=== PATIENT | female | born 1965 | race Caucasian/White ===

== ENCOUNTER 2017-02-19 13:59 | Emergency (ER) | payer BC, OTHER ==
[~2017-02-19] VITALS: Ht 172.7 cm; Wt 100.0 kg
[2017-02-19] MEDS ORDERED: PRED10PA2 PO (14:06)
[2017-02-19] MEDS ORDERED: LEVO150T7 (14:06)
[2017-02-19] MEDS ORDERED: TRINTAB3 (14:06)
[2017-02-19] MEDS ORDERED: VALT1TAB PO (14:06)
[2017-02-19] MEDS ORDERED: ZANA4TAB PO (16:16)
[2017-02-19 16:25] VITALS: BP 154/99
== END 2017-02-19 16:29 | disposition home or self-care (01) ==
LOC: M ED 13:59
DX: M54.32 Sciatica, left side (principal); E11.9 Type 2 diabetes mellitus without complications; E03.9 Hypothyroidism, unspecified; E78.5 Hyperlipidemia, unspecified; Z87.891 Personal history of nicotine dependence; Z79.899 Other long term (current) drug therapy

== ENCOUNTER 2017-02-26 11:48 | Emergency (ER) | payer BC ==
[~2017-02-26] VITALS: Ht 172.7 cm; Wt 100.0 kg
[~2017-02-26 11:48] MED LIST: LEVO150T7; PRED10PA2 PO; TRINTAB3; VALT1TAB PO; ZANA4TAB PO
[2017-02-26] MEDS ORDERED: NAPR500T PO (13:53)
[2017-02-26 13:57] VITALS: BP 142/92
== END 2017-02-26 13:59 | disposition home or self-care (01) ==
LOC: M ED 11:48
DX: M54.32 Sciatica, left side (principal); E66.9 Obesity, unspecified; Z87.891 Personal history of nicotine dependence; Z79.899 Other long term (current) drug therapy

== ENCOUNTER 2017-03-30 17:17 | Emergency (ER) | payer BC ==
[2017-03-30 20:00] LABS: BASO % 0.4 % (0.0-1.0); EOS # 0.1 10^3/uL (0.0-0.50); EOS % 1.2 % (0.0-3.0); HEMATOCRIT 36.1 % (36.0-47.0); HEMOGLOBIN 10.7 g/dl (12.0-16.0); IMMATURE GRANULOCYTE % 0.5 % (0-0); LYMPH # 2.3 10^3/uL (1.5-4.5); LYMPH % 30.6 % (24.0-44.0); MEAN CORPUSCULAR HEMOGLOBIN 21.5 pg (27.0-33.0); MEAN CORPUSCULAR HGB CONC 29.6 g/dl (32.0-36.5); MEAN CORPUSCULAR VOLUME 72.5 fl (80.0-96.0); MONO # 0.7 10^3/uL (0.0-0.8); MONO % 9.5 % (0.0-5.0); NEUTROPHILS # 4.4 10^3/uL (1.8-7.7); NEUTROPHILS % 57.8 % (36.0-66.0); PLATELET COUNT, AUTOMATED 376 10^3/uL (150-450); RED BLOOD COUNT 4.98 10^6/uL (4.00-5.40); RED CELL DISTRIBUTION WIDTH 17.5 % (11.5-14.5); WHITE BLOOD COUNT 7.6 10^3/uL (4.0-10.0)
[2017-03-30 20:22] LABS: CONTROL LINE HCG INT CTR LINE PRESENT; HCG, SERUM QUALITATIVE NEGATIVE (NEGATIVE)
[2017-03-30 20:24] LABS: ALBUMIN 3.3 GM/DL (3.2-5.2); ALBUMIN/GLOBULIN RATIO 0.83 (1.00-1.93); ALKALINE PHOSPHATASE 107 U/L (45-117); ALT/SGPT 27 U/L (12-78); ANION GAP 6 MEQ/L (8-16); AST/SGOT 20 U/L (7-37); BILIRUBIN,DIRECT < 0.1 MG/DL (0.0-0.2); BILIRUBIN,TOTAL 0.1 MG/DL (0.2-1.0); BLOOD UREA NITROGEN 9 MG/DL (7-18); CALCIUM LEVEL 8.6 MG/DL (8.5-10.1); CARBON DIOXIDE LEVEL 28 MEQ/L (21-32); CHLORIDE LEVEL 103 MEQ/L (98-107); CREATININE FOR GFR 0.73 MG/DL (0.55-1.02); GLOMERULAR FILTRATION RATE > 60.0 (>51); GLUCOSE, FASTING 243 MG/DL (70-105); LIPASE 142 U/L (73-393); POTASSIUM SERUM 3.7 MEQ/L (3.5-5.1); SODIUM LEVEL 137 MEQ/L (136-145); TOTAL PROTEIN 7.3 GM/DL (6.4-8.2)
[2017-03-30] MEDS ORDERED: ISOVUE-370 76% 100ML VIAL (Q9967) As Ordered (20:37)
[2017-03-30 20:45] LABS: KETONE, URINE AUTO RFX TRACE mg/dL (NEGATIVE); LEUKOCYTE ESTERASE UR AUTO RFX NEGATIVE (NEGATIVE); MUCUS, URINE RFX SMALL (NEGATIVE); NITRITE, URINE AUTO RFX NEGATIVE (NEGATIVE); RBC, URINE AUTO RFX 2 /HPF (0-3); SPECIFIC GRAVITY UR AUTO RFX 1.033 (1.002-1.035); SQUAM EPITHELIAL CELL UR AURFX 0 /HPF (0-6); WBC, URINE AUTO RFX 1 /HPF (0-3)
== END 2017-03-30 22:26 | disposition home or self-care (01) ==
LOC: M ED 17:17
DX: R10.31 Right lower quadrant pain (principal); R81 Glycosuria; K76.0 Fatty (change of) liver, not elsewhere classified; E11.9 Type 2 diabetes mellitus without complications; I10 Essential (primary) hypertension; E78.5 Hyperlipidemia, unspecified; D64.9 Anemia, unspecified; Z87.19 Personal history of other diseases of the digestive system; Z79.899 Other long term (current) drug therapy; Z79.890 Hormone replacement therapy; Z79.84 Long term (current) use of oral hypoglycemic drugs; Z87.891 Personal history of nicotine dependence
CPT/HCPCS: Q9967

== ENCOUNTER 2017-05-27 13:08 | Emergency (ER) | payer BC | END 2017-05-27 14:55 | disposition home or self-care (01) | LOC: M ED 13:08 | DX: M72.2 Plantar fascial fibromatosis (principal); M77.32 Calcaneal spur, left foot; E11.9 Type 2 diabetes mellitus without complications; E07.9 Disorder of thyroid, unspecified; Z87.891 Personal history of nicotine dependence; Z79.899 Other long term (current) drug therapy; Z79.84 Long term (current) use of oral hypoglycemic drugs; Z79.1 Long term (current) use of non-steroidal anti-inflammatories (NSAID) | CPT/HCPCS: 73630 ==

== ENCOUNTER 2017-08-21 07:58 | Emergency (ER) | payer BC ==
[2017-08-21] MEDS: IPRATROPIUM 0.5MG/ALBUTEROL 2.5MG INH SOL UD 3ML (DUONEB)(J7620) NEB ×2 (08:41→08:52)
[2017-08-21] MEDS: BENZONATATE 100 MG CAP PO (08:41)
== END 2017-08-21 09:23 | disposition home or self-care (01) ==
LOC: M ED 07:58
DX: R05 Cough (principal); R91.8 Other nonspecific abnormal finding of lung field; I10 Essential (primary) hypertension; E11.9 Type 2 diabetes mellitus without complications; E07.9 Disorder of thyroid, unspecified; E78.9 Disorder of lipoprotein metabolism, unspecified; Z87.19 Personal history of other diseases of the digestive system; Z87.442 Personal history of urinary calculi; Z87.891 Personal history of nicotine dependence; Z79.890 Hormone replacement therapy; Z79.2 Long term (current) use of antibiotics
CPT/HCPCS: 71046

== ENCOUNTER 2017-12-16 14:50 | Emergency (ER) | payer BC ==
[2017-12-16 15:43] LABS: BASO % 0.2 % (0.0-1.0); EOS # 0.1 10^3/uL (0.0-0.50); HEMATOCRIT 38.8 % (36.0-47.0); HEMOGLOBIN 11.5 g/dl (12.0-15.5); IMMATURE GRANULOCYTE % 0.4 % (0-3.0); MEAN CORPUSCULAR HEMOGLOBIN 21.3 pg (27.0-33.0); MEAN CORPUSCULAR HGB CONC 29.6 g/dl (32.0-36.5); MEAN CORPUSCULAR VOLUME 71.9 fl (80.0-96.0); MONO # 0.8 10^3/uL (0.0-0.8); MONO % 7.4 % (0.0-5.0); NEUTROPHILS # 7.4 10^3/uL (1.8-7.7); PLATELET COUNT, AUTOMATED 397 10^3/uL (150-450); RED CELL DISTRIBUTION WIDTH 17.1 % (11.5-14.5); WHITE BLOOD COUNT 10.3 10^3/uL (4.0-10.0)
[2017-12-16 15:47] LABS: KETONE, URINE AUTO RFX TRACE mg/dL (NEGATIVE); LEUKOCYTE ESTERASE UR AUTO RFX NEGATIVE (NEGATIVE); MUCUS, URINE RFX SMALL (NEGATIVE); NITRITE, URINE AUTO RFX NEGATIVE (NEGATIVE); RBC, URINE AUTO RFX 3 /HPF (0-3); SPECIFIC GRAVITY UR AUTO RFX 1.037 (1.002-1.035); SQUAM EPITHELIAL CELL UR AURFX 1 /HPF (0-6); WBC, URINE AUTO RFX 1 /HPF (0-3)
[2017-12-16 15:56] LABS: ALBUMIN 3.3 GM/DL (3.2-5.2); ALBUMIN/GLOBULIN RATIO 0.75 (1.00-1.93); ALKALINE PHOSPHATASE 113 U/L (45-117); ALT/SGPT 15 U/L (12-78); ANION GAP 10 MEQ/L (8-16); AST/SGOT 11 U/L (7-37); BILIRUBIN,DIRECT < 0.1 MG/DL (0.0-0.2); BILIRUBIN,TOTAL 0.2 MG/DL (0.2-1.0); BLOOD UREA NITROGEN 9 MG/DL (7-18); CALCIUM LEVEL 8.8 MG/DL (8.5-10.1); CARBON DIOXIDE LEVEL 26 MEQ/L (21-32); CHLORIDE LEVEL 100 MEQ/L (98-107); CREATININE FOR GFR 0.98 MG/DL (0.55-1.30); GLOMERULAR FILTRATION RATE > 60.0 (>51); GLUCOSE, FASTING 318 MG/DL (70-100); LIPASE 185 U/L (73-393); POTASSIUM SERUM 3.8 MEQ/L (3.5-5.1); SODIUM LEVEL 136 MEQ/L (136-145); TOTAL PROTEIN 7.7 GM/DL (6.4-8.2)
[2017-12-16] MEDS ORDERED: ISOVUE-370 76% 100ML VIAL (Q9967) As Ordered (16:08)
== END 2017-12-16 17:14 | disposition home or self-care (01) ==
LOC: M ED 14:50
DX: K57.92 Diverticulitis of intestine, part unspecified, without perforation or abscess without bleeding (principal); E11.9 Type 2 diabetes mellitus without complications; I10 Essential (primary) hypertension; E78.5 Hyperlipidemia, unspecified; E03.9 Hypothyroidism, unspecified
CPT/HCPCS: Q9967

== ENCOUNTER 2018-06-08 12:50 | Emergency (ER) | payer BC, MEDICAID ==
[~2018-06-08] VITALS: Ht 172.7 cm; Wt 99.1 kg
[2018-06-08 12:50] VITALS: BP 170/98
[~2018-06-08 12:50] MED LIST changes: +CIPR-249 PO; +FLAG500T PO; +LEVO175T2 PO; +LISI-542 PO; +LOSA50TA88; +METF-954 PO; +NAPR-837 PO; +TESS100C PO; +TRINTAB; -TRINTAB3; +VENTAER IN
[2018-06-08] MEDS ORDERED: IPRATROPIUM 0.5MG/ALBUTEROL 2.5MG INH SOL UD 3ML (DUONEB)(J7620) NEB ONE (14:00)
[2018-06-08 14:28] LABS: INFLUENZA A AMPLIFICATION NEGATIVE (NEGATIVE); INFLUENZA B AMPLIFICATION NEGATIVE (NEGATIVE)
--- NOTE | 2018-06-08 14:33 | REP ---
Clinical: Cough and shortness of breath. Technique: PA and lateral. Comparison: 08/21/2017. Findings: Mediastinum and cardiac silhouette are stable/normal. Chronic scoliosis again noted. Lung hernandez are relatively clear and without focal consolidation, effusion or pneumothorax. Trace right middle lobe atelectasis cannot be excluded and should be correlated with physical examination and auscultation. Skeletal structures are intact. Impression: Relatively normal stable examination. Very subtle right middle lobe atelectasis cannot be excluded and should be correlated with physical examination and auscultation. Electronically Signed by Óscar Bedoya MD 06/08/2018 02:25 P
[2018-06-08] MEDS ORDERED: MUCI600T37 PO (15:22)
[2018-06-08] MEDS ORDERED: LEVO750T13 PO (15:22)
[2018-06-08] MEDS ORDERED: LevoFLOXacin 750 MG TABLET PO ONE (15:30)
== END 2018-06-08 15:29 | disposition home or self-care (01) ==
LOC: M ED 12:50
DX: J18.1 Lobar pneumonia, unspecified organism (principal); I10 Essential (primary) hypertension; E03.9 Hypothyroidism, unspecified; Z87.891 Personal history of nicotine dependence; Z79.899 Other long term (current) drug therapy

== ENCOUNTER → 2018-06-28 | Outpatient (REF) | payer MEDICAID ==
[~2018-06-28] MED LIST changes: +LEVO750T13 PO; +MUCI600T37 PO
[2018-06-28 12:46] LABS: HEMOGLOBIN A1c 11.8 %
[2018-06-28 12:49] LABS: MAU/CREAT RATIO 121.8 MCG/MG (0.0-30.0)
[2018-06-28 14:14] LABS: ALT/SGPT 37 U/L (12-78); BILIRUBIN,TOTAL 0.3 MG/DL (0.2-1.0); BLOOD UREA NITROGEN 13 MG/DL (7-18); CALCIUM LEVEL 9.2 MG/DL (8.5-10.1); CARBON DIOXIDE LEVEL 29 MEQ/L (21-32); CHLORIDE LEVEL 100 MEQ/L (98-107); CHOLESTEROL LEVEL 295 MG/DL (<200); CHOLESTEROL RISK RATIO 5.784 (<5); CREATININE FOR GFR 0.74 MG/DL (0.55-1.30); FOLATE 20.3 NG/ML; GLOMERULAR FILTRATION RATE > 60.0 (>51); GLUCOSE, FASTING 278 MG/DL (70-100); HDL CHOLESTEROL 51 MG/DL (>40); LDL CHOLESTEROL 206 MG/DL (<100); NON-HDL-C 244 MG/DL; POTASSIUM SERUM 4.3 MEQ/L (3.5-5.1); SODIUM LEVEL 138 MEQ/L (136-145); TOTAL 25(OH) VITAMIN D 16.7 NG/ML (30.0-100.0); TOTAL PROTEIN 7.9 GM/DL (6.4-8.2); TRIGLYCERIDES LEVEL 188 MG/DL (<150); VITAMIN B12 LEVEL 252 PG/ML
== END ==
LOC: M SFHCPLAZ 09:28
PROVIDERS: ATTEND Nurse Practitioner Family
DX: E11.65 Type 2 diabetes mellitus with hyperglycemia (principal); E78.2 Mixed hyperlipidemia; E03.9 Hypothyroidism, unspecified; R20.2 Paresthesia of skin

== ENCOUNTER → 2018-08-09 | Outpatient (REF) | payer MEDICAID ==
[2018-08-09 12:43] LABS: MALB URINE SIEMENS 8.1 MG/L; MAU/CREAT RATIO 7.9 MCG/MG (0.0-30.0)
[2018-08-09 12:45] LABS: BLOOD UREA NITROGEN 11 MG/DL (7-18); CALCIUM LEVEL 9.3 MG/DL (8.5-10.1); CARBON DIOXIDE LEVEL 29 MEQ/L (21-32); CHLORIDE LEVEL 104 MEQ/L (98-107); CREATININE FOR GFR 0.62 MG/DL (0.55-1.30); FREE T4 1.55 NG/DL (0.76-1.46); GLOMERULAR FILTRATION RATE > 60.0 (>51); GLUCOSE, FASTING 172 MG/DL (70-100); SODIUM LEVEL 143 MEQ/L (136-145); THYROID STIMULATING HORMONE 0.128 uIU/ML (0.358-3.740)
[2018-08-09 12:49] LABS: HEMOGLOBIN A1c 10.7 %
== END ==
LOC: M SFHCPLAZ 09:57
PROVIDERS: ATTEND Nurse Practitioner Family
DX: E03.9 Hypothyroidism, unspecified (principal); E11.65 Type 2 diabetes mellitus with hyperglycemia

== ENCOUNTER 2018-10-09 13:36 | Emergency (ER) | payer MEDICAID, OTHER ==
[~2018-10-09] VITALS: Ht 172.7 cm; Wt 84.5 kg
[2018-10-09] MEDS ORDERED: VITA500045 PO (14:01)
[2018-10-09] MEDS ORDERED: ATOR1TAB19 PO (14:01)
[2018-10-09] MEDS ORDERED: JANU100T PO (14:01)
[2018-10-09] MEDS ORDERED: METF500T4 PO (14:01)
[2018-10-09 14:28] LABS: BASO % 0.4 % (0.0-1.0); EOS # 0.2 10^3/uL (0.0-0.50); EOS % 2.3 % (0.0-3.0); HEMATOCRIT 40.9 % (36.0-47.0); LYMPH # 1.6 10^3/uL (1.5-4.5); LYMPH % 23.3 % (24.0-44.0); MEAN CORPUSCULAR HEMOGLOBIN 25.8 pg (27.0-33.0); MEAN CORPUSCULAR HGB CONC 31.8 g/dl (32.0-36.5); MEAN CORPUSCULAR VOLUME 81.3 fl (80.0-96.0); MONO # 0.6 10^3/uL (0.0-0.8); MONO % 9.1 % (0.0-5.0); NEUTROPHILS # 4.6 10^3/uL (1.8-7.7); NEUTROPHILS % 64.5 % (36.0-66.0); PLATELET COUNT, AUTOMATED 295 10^3/uL (150-450); RED BLOOD COUNT 5.03 10^6/uL (4.00-5.40); WHITE BLOOD COUNT 7.1 10^3/uL (4.0-10.0)
--- NOTE | 2018-10-09 14:32 | REP ---
Clinical: Acute chest pain . Comparison: 06/08/2018 . Findings: The mediastinum and cardiac silhouette are stable and within normal limits for portable technique. The lung hernandez are clear without acute consolidation, effusion, or pneumothorax. Skeletal structures are intact. Impression: No acute cardiopulmonary process appreciated. Electronically Signed by Óscar Bedoya MD 10/09/2018 02:24 P
[2018-10-09] MEDS ORDERED: GI COCKTAIL 50ML BTL(HYOSCYAMINE/MAALOX/LIDOCAINE VISCOUS)(1:3:1) PO ONE (14:45)
[2018-10-09 14:54] LABS: ALBUMIN 3.2 GM/DL (3.2-5.2); ALT/SGPT 26 U/L (12-78); BILIRUBIN,DIRECT < 0.1 MG/DL (0.0-0.2); BILIRUBIN,TOTAL 0.2 MG/DL (0.2-1.0); BLOOD UREA NITROGEN 10 MG/DL (7-18); CALCIUM LEVEL 9.3 MG/DL (8.5-10.1); CARBON DIOXIDE LEVEL 28 MEQ/L (21-32); CHLORIDE LEVEL 107 MEQ/L (98-107); CK-MB VALUE MASS < 1.0 NG/ML (<3.6); CPK CREATINE PHOSPHOKINASE 29 U/L (26-192); CREATININE FOR GFR 0.64 MG/DL (0.55-1.30); GLOMERULAR FILTRATION RATE > 60.0 (>51); GLUCOSE, FASTING 208 MG/DL (70-100); LIPASE 75 U/L (73-393); MB/CK RELATIVE INDEX 3.45 (< OR =4); POTASSIUM SERUM 3.5 MEQ/L (3.5-5.1); SODIUM LEVEL 141 MEQ/L (136-145); TOTAL PROTEIN 7.1 GM/DL (6.4-8.2); TROPONIN I < 0.02 NG/ML (< 0.10)
[2018-10-09] MEDS ORDERED: OMEP-218 PO (15:42)
[2018-10-09 16:02] VITALS: BP 130/78
--- NOTE | 2018-10-09 20:20 | ECGEPIP ---
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
--- NOTE | 2018-10-11 19:15 | ECGEPIP ---
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
== END 2018-10-09 16:09 | disposition home or self-care (01) ==
LOC: M ED 13:36
DX: K21.9 Gastro-esophageal reflux disease without esophagitis (principal); E11.9 Type 2 diabetes mellitus without complications; Z79.899 Other long term (current) drug therapy; Z79.84 Long term (current) use of oral hypoglycemic drugs; Z87.891 Personal history of nicotine dependence

== ENCOUNTER → 2018-11-09 | Outpatient (REF) | payer OTHER ==
[~2018-11-09] MED LIST changes: +ATOR1TAB19 PO; +JANU100T PO; +METF500T4 PO; +OMEP-218 PO; +VITA500045 PO
[2018-11-09 12:54] LABS: MALB URINE SIEMENS 15.3 MG/L; MAU/CREAT RATIO 7.6 MCG/MG (0.0-30.0)
[2018-11-09 13:46] LABS: HEMOGLOBIN A1c 7.7 %
[2018-11-09 14:16] LABS: ALBUMIN 3.7 GM/DL (3.2-5.2); ALT/SGPT 30 U/L (12-78); BILIRUBIN,TOTAL 0.5 MG/DL (0.2-1.0); BLOOD UREA NITROGEN 11 MG/DL (7-18); CALCIUM LEVEL 9.7 MG/DL (8.5-10.1); CARBON DIOXIDE LEVEL 28 MEQ/L (21-32); CHLORIDE LEVEL 104 MEQ/L (98-107); CHOLESTEROL LEVEL 164 MG/DL (<200); CREATININE FOR GFR 0.69 MG/DL (0.55-1.30); FREE T4 1.85 NG/DL (0.76-1.46); GLOMERULAR FILTRATION RATE > 60.0 (>51); GLUCOSE, FASTING 111 MG/DL (70-100); HDL CHOLESTEROL 50 MG/DL (>40); LDL CHOLESTEROL 99 MG/DL (<100); NON-HDL-C 114 MG/DL; POTASSIUM SERUM 4.1 MEQ/L (3.5-5.1); SODIUM LEVEL 140 MEQ/L (136-145); THYROID STIMULATING HORMONE 0.053 uIU/ML (0.358-3.740); TOTAL 25(OH) VITAMIN D 136.8 NG/ML (30.0-100.0); TOTAL PROTEIN 7.1 GM/DL (6.4-8.2); TRIGLYCERIDES LEVEL 74 MG/DL (<150); VITAMIN B12 LEVEL 1143 PG/ML
[2018-11-09 16:10] LABS: FOLATE 20.8 NG/ML
== END ==
LOC: M SFHCPLAZ 09:44
PROVIDERS: ATTEND Nurse Practitioner Family
DX: E11.65 Type 2 diabetes mellitus with hyperglycemia (principal); E03.9 Hypothyroidism, unspecified; E78.2 Mixed hyperlipidemia; E55.9 Vitamin D deficiency, unspecified; E53.8 Deficiency of other specified B group vitamins

== ENCOUNTER → 2019-02-05 | Outpatient (CLI) | payer OTHER ==
[~2019-02-05] MED LIST changes: +METF-791 PO; -METF500T4 PO
[2019-02-05 13:44] LABS: ALT/SGPT 22 U/L (12-78); BILIRUBIN,TOTAL 0.4 MG/DL (0.2-1.0); BLOOD UREA NITROGEN 11 MG/DL (7-18); CALCIUM LEVEL 9.9 MG/DL (8.5-10.1); CARBON DIOXIDE LEVEL 31 MEQ/L (21-32); CHLORIDE LEVEL 104 MEQ/L (98-107); CREATININE FOR GFR 0.67 MG/DL (0.55-1.30); FOLATE 16.5 NG/ML; FREE T4 1.42 NG/DL (0.76-1.46); GLOMERULAR FILTRATION RATE > 60.0 (>51); GLUCOSE, FASTING 117 MG/DL (70-100); POTASSIUM SERUM 4.7 MEQ/L (3.5-5.1); SODIUM LEVEL 141 MEQ/L (136-145); THYROID STIMULATING HORMONE 0.277 uIU/ML (0.358-3.740); TOTAL 25(OH) VITAMIN D 60.2 NG/ML (30.0-100.0); TOTAL PROTEIN 7.7 GM/DL (6.4-8.2); VITAMIN B12 LEVEL 1168 PG/ML
[2019-02-05 14:16] LABS: HEMOGLOBIN A1c 7.1 %
== END ==
LOC: M PLALAB 11:18
PROVIDERS: ATTEND Nurse Practitioner Family
DX: E11.65 Type 2 diabetes mellitus with hyperglycemia (principal); E03.9 Hypothyroidism, unspecified; E55.9 Vitamin D deficiency, unspecified; E53.8 Deficiency of other specified B group vitamins

== ENCOUNTER → 2019-04-06 | Outpatient (CLI) | payer OTHER ==
--- NOTE | 2019-04-06 12:28 | REP ---
BILATERAL SCREENING DIGITAL MAMMOGRAM WITH 3D TOMOSYNTHESIS: There are no palpable abnormalities or other breast complaints. The the patient states she had a clinical breast examination January,. The Tyrer-Cuzick Score is: 8.6% . Comparison is the 01/15/2013. There are scattered areas of fibroglandular density. There is no dominant mass, micro calcific cluster or architectural distortion that would indicate malignancy. There are no additional findings on 3D tomosynthesiss. There is no change from the prior study. Impression: BIRADS/ACR category 1 mammogram. Negative. Recommendation: Routine annual screening mammography. This mammogram was interpreted with the aid of a FDA approved computer-aided detection system. A. Negative mammogram reports should not delay biopsy if a dominant or clinically suspicious mass is present. B. Not all breast cancers are identified by mammography or tomosynthesis. C. Adenosis and dense breasts may obscure an underlying neoplasm. Patient letter M1. Electronically Signed by Shakeel Wynn MD 04/06/2019 12:20 P
== END ==
LOC: M WHC 10:17
PROVIDERS: ATTEND Nurse Practitioner Family
DX: Z12.31 Encounter for screening mammogram for malignant neoplasm of breast (principal)

== ENCOUNTER → 2019-04-23 | Outpatient (REF) | payer OTHER, MEDICAID ==
[2019-04-23 22:21] LABS: INFLUENZA A AMPLIFICATION NEGATIVE (NEGATIVE); INFLUENZA B AMPLIFICATION NEGATIVE (NEGATIVE)
== END ==
LOC: M LAB REF 21:22
PROVIDERS: ATTEND Physician Assistant Medical
DX: J11.1 Influenza due to unidentified influenza virus with other respiratory manifestations (principal)

== ENCOUNTER → 2019-05-15 | Outpatient (CLI) | payer OTHER ==
[2019-05-15 14:42] LABS: ALBUMIN 3.9 GM/DL (3.2-5.2); ALT/SGPT 22 U/L (12-78); BILIRUBIN,TOTAL 0.4 MG/DL (0.2-1.0); BLOOD UREA NITROGEN 15 MG/DL (7-18); CALCIUM LEVEL 9.3 MG/DL (8.5-10.1); CARBON DIOXIDE LEVEL 30 MEQ/L (21-32); CHLORIDE LEVEL 105 MEQ/L (98-107); CHOLESTEROL LEVEL 194 MG/DL (<200); CHOLESTEROL RISK RATIO 2.895 (<5); CREATININE FOR GFR 0.74 MG/DL (0.55-1.30); FREE T4 0.99 NG/DL (0.76-1.46); GLOMERULAR FILTRATION RATE > 60.0 (>51); GLUCOSE, FASTING 98 MG/DL (70-100); HDL CHOLESTEROL 67 MG/DL (>40); LDL CHOLESTEROL 108 MG/DL (<100); NON-HDL-C 127 MG/DL; POTASSIUM SERUM 4.8 MEQ/L (3.5-5.1); SODIUM LEVEL 139 MEQ/L (136-145); TOTAL PROTEIN 7.2 GM/DL (6.4-8.2); TRIGLYCERIDES LEVEL 96 MG/DL (<150)
[2019-05-15 14:44] LABS: MALB URINE SIEMENS 6.6 MG/L; MAU/CREAT RATIO 5.4 MCG/MG (0.0-30.0); TOTAL 25(OH) VITAMIN D 39.8 NG/ML (30.0-100.0)
[2019-05-15 17:24] LABS: HEMOGLOBIN A1c 6.8 %
== END ==
LOC: M PLALAB 10:51
PROVIDERS: ATTEND Nurse Practitioner Family
DX: E11.65 Type 2 diabetes mellitus with hyperglycemia (principal); E03.9 Hypothyroidism, unspecified; E78.2 Mixed hyperlipidemia; E55.9 Vitamin D deficiency, unspecified

== ENCOUNTER → 2019-09-04 | Outpatient (CLI) | payer OTHER, MEDICAID ==
[~2019-09-04] MED LIST changes: -METF-791 PO; +METF-838 PO
[2019-09-04 10:49] LABS: ALBUMIN 3.4 GM/DL (3.2-5.2); ALT/SGPT 17 U/L (12-78); BILIRUBIN,TOTAL 0.3 MG/DL (0.2-1.0); BLOOD UREA NITROGEN 15 MG/DL (7-18); CALCIUM LEVEL 9.2 MG/DL (8.5-10.1); CARBON DIOXIDE LEVEL 29 MEQ/L (21-32); CHLORIDE LEVEL 108 MEQ/L (98-107); CREATININE FOR GFR 0.74 MG/DL (0.55-1.30); FREE T4 1.12 NG/DL (0.76-1.46); GLOMERULAR FILTRATION RATE > 60.0 (>51); GLUCOSE, FASTING 144 MG/DL (70-100); POTASSIUM SERUM 4.3 MEQ/L (3.5-5.1); SODIUM LEVEL 141 MEQ/L (136-145); THYROID STIMULATING HORMONE 0.121 uIU/ML (0.358-3.740); TOTAL PROTEIN 6.7 GM/DL (6.4-8.2)
[2019-09-04 12:12] LABS: HEMOGLOBIN A1c 6.9 %
== END ==
LOC: M PLALAB 08:23
PROVIDERS: ATTEND Nurse Practitioner Family
DX: E03.9 Hypothyroidism, unspecified (principal)

== ENCOUNTER 2019-12-13 11:11 | Emergency (ER) | payer OTHER ==
[~2019-12-13] VITALS: Ht 172.7 cm; Wt 83.0 kg
[~2019-12-13 11:11] MED LIST changes: -ACYC400T PO; -CALC-212 PO
[2019-12-13] MEDS ORDERED: CALC-212 PO (11:17)
[2019-12-13] MEDS ORDERED: ACYC400T PO (11:17)
--- NOTE | 2019-12-13 12:15 | REPVR ---
PROCEDURE INFORMATION: Exam: XR Left Toe(s) Exam date and time: 12/13/2019 11:19 AM Age: 54 years old Clinical indication: Injury or trauma; Other: Trauma to pinky toe; Sprain or strain; Toes; Left little toe; Additional info: Trauma to left baby toe TECHNIQUE: Imaging protocol: XR Left toes. Views: Minimum 2 views. COMPARISON: CR Foot, complete LEFT 05/27/2017 2:30 PM FINDINGS: Bones/joints: Fifth toe proximal phalanx shaft nondisplaced acute fracture. No dislocation. Soft tissues: Unremarkable as visualized. IMPRESSION: Fifth toe proximal phalanx acute fracture. Electronically signed by: Antonio Rudd On 12/13/2019 12:15:31 PM
[2019-12-13 12:38] VITALS: BP 125/65
== END 2019-12-13 12:39 | disposition home or self-care (01) ==
LOC: M ED 11:11
DX: S92.515A Nondisplaced fracture of proximal phalanx of left lesser toe(s), initial encounter for closed fracture (principal); W22.03XA Walked into furniture, initial encounter; Y92.099 Unspecified place in other non-institutional residence as the place of occurrence of the external cause; Y93.9 Activity, unspecified; Y99.9 Unspecified external cause status; E11.9 Type 2 diabetes mellitus without complications; E78.5 Hyperlipidemia, unspecified; E03.9 Hypothyroidism, unspecified; I10 Essential (primary) hypertension; Z87.891 Personal history of nicotine dependence; Z79.899 Other long term (current) drug therapy

== ENCOUNTER → 2019-12-13 | Outpatient (REF) | payer OTHER ==
[~2019-12-13] MED LIST changes: +ACYC400T PO; +CALC-212 PO
[2019-12-13 12:08] LABS: ALBUMIN 3.7 GM/DL (3.2-5.2); ALT/SGPT 18 U/L (12-78); BILIRUBIN,TOTAL 0.4 MG/DL (0.2-1.0); BLOOD UREA NITROGEN 12 MG/DL (7-18); CALCIUM LEVEL 9.4 MG/DL (8.5-10.1); CARBON DIOXIDE LEVEL 30 MEQ/L (21-32); CHLORIDE LEVEL 105 MEQ/L (98-107); CHOLESTEROL LEVEL 158 MG/DL (<200); CHOLESTEROL RISK RATIO 2.677 (<5); CREATININE FOR GFR 0.68 MG/DL (0.55-1.30); FREE T4 1.16 NG/DL (0.76-1.46); GLOMERULAR FILTRATION RATE > 60.0 (>51); GLUCOSE, FASTING 88 MG/DL (70-100); HDL CHOLESTEROL 59 MG/DL (>40); LDL CHOLESTEROL 85 MG/DL (<100); MALB URINE SIEMENS 9.3 MG/L; MAU/CREAT RATIO 6.2 MCG/MG (0.0-30.0); NON-HDL-C 99 MG/DL; POTASSIUM SERUM 4.6 MEQ/L (3.5-5.1); SODIUM LEVEL 140 MEQ/L (136-145); TOTAL 25(OH) VITAMIN D 40.8 NG/ML (30.0-100.0); TOTAL PROTEIN 6.7 GM/DL (6.4-8.2); TRIGLYCERIDES LEVEL 69 MG/DL (<150)
== END ==
LOC: M PLALAB 09:07
PROVIDERS: ATTEND Nurse Practitioner Family
DX: E11.40 Type 2 diabetes mellitus with diabetic neuropathy, unspecified (principal); E03.9 Hypothyroidism, unspecified; E78.2 Mixed hyperlipidemia; E55.9 Vitamin D deficiency, unspecified

== ENCOUNTER 2020-03-16 13:47 | Emergency (ER) | payer OTHER ==
[~2020-03-16] VITALS: Ht 172.7 cm; Wt 80.7 kg
[~2020-03-16 13:47] MED LIST changes: +ACYC400T PO; +CALC-212 PO
--- NOTE | 2020-03-16 14:57 | REP ---
INDICATION: pain after fall COMPARISON: None. TECHNIQUE: AP, lateral, bilateral oblique views. FINDINGS: There is a new acute oblique fracture of the distal fibular metaphysis with overlying soft tissue swelling and mild widening to the ankle mortise. IMPRESSION: Acute oblique fracture of the distal fibular metaphysis with overlying soft tissue swelling. <Electronically signed by Óscar Bedoya > 03/16/20 [id number]
[2020-03-16] MEDS ORDERED: NORCO, ANEXSIA 5/325MG TABLET (HYDROcodone/ACETAMINOPHEN) PO ONE (15:00)
[2020-03-16 15:56] VITALS: BP 152/97
== END 2020-03-16 16:00 | disposition home or self-care (01) ==
LOC: M ED 13:47
DX: S82.831A Other fracture of upper and lower end of right fibula, initial encounter for closed fracture (principal); W00.9XXA Unspecified fall due to ice and snow, initial encounter; Y92.9 Unspecified place or not applicable; Y93.9 Activity, unspecified; Y99.9 Unspecified external cause status; E11.9 Type 2 diabetes mellitus without complications; Z79.84 Long term (current) use of oral hypoglycemic drugs; Z79.899 Other long term (current) drug therapy

== ENCOUNTER 2020-05-24 14:21 | Emergency (ER) | payer OTHER ==
[~2020-05-24] VITALS: Ht 172.7 cm; Wt 80.5 kg
[~2020-05-24 14:21] MED LIST changes: -LISI-542 PO; +LISI-898 PO
--- NOTE | 2020-05-24 14:50 | REP ---
INDICATION: fall injury COMPARISON: None. TECHNIQUE: AP, lateral, bilateral oblique views right 4th digit. FINDINGS: There is a minimally angulated fracture at the base of the proximal phalanx with associated soft tissue swelling. IMPRESSION: Fracture at the base of the proximal phalanx with soft tissue swelling. <Electronically signed by sÓcar Bedoya > 05/24/20 0790
--- NOTE | 2020-05-24 15:49 | REP ---
INDICATION: fall from standing COMPARISON: None. TECHNIQUE: Axial noncontrast images from the skull base to the vertex with coronal reformations. This CT examination was performed using the following dose reduction techniques: Automated exposure control, adjustment of mA and/or kv according to the patient's size, and use of iterative reconstruction technique. FINDINGS: The ventricles, sulci, and cisterns are normal in position and appearance. Rivera-white differentiation is maintained. No acute intracranial hemorrhage, mass/mass effect, pathology or trauma/injury. No evidence for acute infarction. No extra-axial fluid collection. Calvarium is intact. Paranasal sinuses and mastoid air cells are clear. IMPRESSION: Normal noncontrast head CT. No evidence for acute intracranial pathology or trauma/injury. <Electronically signed by Óscar Bedoya > 05/24/20 [id number]
[2020-05-24 16:04] VITALS: BP 144/88
== END 2020-05-24 16:09 | disposition home or self-care (01) ==
LOC: M ED 14:21
DX: S62.614A Displaced fracture of proximal phalanx of right ring finger, initial encounter for closed fracture (principal); S00.81XA Abrasion of other part of head, initial encounter; W19.XXXA Unspecified fall, initial encounter; Y92.099 Unspecified place in other non-institutional residence as the place of occurrence of the external cause; Y93.9 Activity, unspecified; Y99.9 Unspecified external cause status; E03.9 Hypothyroidism, unspecified; I10 Essential (primary) hypertension; E11.9 Type 2 diabetes mellitus without complications; E78.5 Hyperlipidemia, unspecified; K57.32 Diverticulitis of large intestine without perforation or abscess without bleeding; Z87.442 Personal history of urinary calculi; Z79.84 Long term (current) use of oral hypoglycemic drugs; Z79.899 Other long term (current) drug therapy

== ENCOUNTER → 2020-06-10 | Outpatient (REF) | payer OTHER ==
[2020-06-10 13:37] LABS: HEMOGLOBIN A1c 6.2 %
[2020-06-10 14:10] LABS: ALBUMIN 3.8 GM/DL (3.2-5.2); ALT/SGPT 14 U/L (12-78); BILIRUBIN,TOTAL 0.4 MG/DL (0.2-1.0); BLOOD UREA NITROGEN 13 MG/DL (7-18); CALCIUM LEVEL 9.3 MG/DL (8.5-10.1); CARBON DIOXIDE LEVEL 31 MEQ/L (21-32); CHLORIDE LEVEL 108 MEQ/L (98-107); CREATININE FOR GFR 0.61 MG/DL (0.55-1.30); FREE T4 1.13 NG/DL (0.76-1.46); GLOMERULAR FILTRATION RATE > 60.0 (>51); GLUCOSE, FASTING 101 MG/DL (70-100); POTASSIUM SERUM 4.3 MEQ/L (3.5-5.1); SODIUM LEVEL 143 MEQ/L (136-145); TOTAL PROTEIN 6.7 GM/DL (6.4-8.2)
== END ==
LOC: M PLALAB 08:43
PROVIDERS: ATTEND Nurse Practitioner Family
DX: E11.40 Type 2 diabetes mellitus with diabetic neuropathy, unspecified (principal); E03.9 Hypothyroidism, unspecified

== ENCOUNTER 2020-06-24 09:54 | Emergency (ER) | payer OTHER ==
[~2020-06-24] VITALS: Ht 172.7 cm; Wt 79.9 kg
[~2020-06-24 09:54] MED LIST changes: +ACYC1TAB PO; -ACYC400T PO
[2020-06-24] MEDS ORDERED: NS 1,000 ML IV ONE (10:30)
[2020-06-24 11:07] LABS: BASO % 0.3 % (0.0-1.0); EOS # 0.2 10^3/uL (0.0-0.5); EOS % 2.2 % (0.0-3.0); HEMATOCRIT 44.5 % (36.0-47.0); HEMOGLOBIN 13.9 g/dl (12.0-15.5); LYMPH # 1.1 10^3/uL (1.5-5.0); LYMPH % 9.8 % (24.0-44.0); MEAN CORPUSCULAR HEMOGLOBIN 26.6 pg (27.0-33.0); MEAN CORPUSCULAR HGB CONC 31.2 g/dl (32.0-36.5); MEAN CORPUSCULAR VOLUME 85.2 fl (80.0-96.0); MONO # 0.8 10^3/uL (0.0-0.8); MONO % 7.5 % (2.0-8.0); NEUTROPHILS # 8.7 10^3/uL (1.5-8.5); NEUTROPHILS % 79.8 % (36.0-66.0); PLATELET COUNT, AUTOMATED 279 10^3/uL (150-450); RED BLOOD COUNT 5.22 10^6/uL (4.00-5.40); WHITE BLOOD COUNT 10.8 10^3/uL (4.0-10.0)
[2020-06-24] MEDS ORDERED: ISOVUE-370 76% 100ML VIAL As Ordered ONE (11:13)
[2020-06-24 11:38] LABS: ALBUMIN 3.8 GM/DL (3.2-5.2); BILIRUBIN,DIRECT 0.1 MG/DL (0.0-0.2); BILIRUBIN,TOTAL 0.3 MG/DL (0.2-1.0); TOTAL PROTEIN 7.2 GM/DL (6.4-8.2)
--- NOTE | 2020-06-24 11:43 | REP ---
INDICATION: lower abd pain r/o diverticulitis COMPARISON: 12/16/2017. TECHNIQUE: CT Scan of the abdomen and pelvis was performed with intravenous administration of 100 cc of Isovue 370, without oral contrast. Sagittal and coronal reconstruction images are performed. FINDINGS: Lung bases: Unremarkable. Liver: Normal Gallbladder: Unremarkable. Spleen: Normal. Adrenals: Normal. Pancreas: Normal. Kidneys: Normal. Small and large bowel: There is segmental thickening of the sigmoid colon with multiple diverticula in that region and diffuse pericolonic inflammatory change in the fat. The findings are consistent with diverticulitis. There is no free air or bowel obstruction. Free fluid: None. Abdominal aorta: No aneurysm or dissection. Adenopathy: None. Appendix: Not inflamed. Osseous structures: There are degenerative changes of the spine without compression deformity. Pelvis: No mass. IMPRESSION: Sigmoid diverticulitis. No free air, free fluid or abscess. Recommend follow-up CT or direct visualization to ensure resolution and that there is no underlying neoplasm. <Electronically signed by Shakeel Rivera > 06/24/20 0063
[2020-06-24] MEDS ORDERED: CIPROFLOXACIN 500MG TABLET PO ONE (12:00)
[2020-06-24] MEDS ORDERED: metroNIDAZOLE (FLAGYL) 500MG TABLET PO ONE (12:00)
[2020-06-24] MEDS ORDERED: CIPR-249 PO (12:02)
[2020-06-24] MEDS ORDERED: FLAG500T PO (12:02)
[2020-06-24 12:27] VITALS: BP 111/73
== END 2020-06-24 12:45 | disposition home or self-care (01) ==
LOC: M ED 09:54
DX: K57.32 Diverticulitis of large intestine without perforation or abscess without bleeding (principal); E78.00 Pure hypercholesterolemia, unspecified; I10 Essential (primary) hypertension; Z87.442 Personal history of urinary calculi; E11.9 Type 2 diabetes mellitus without complications; E03.9 Hypothyroidism, unspecified; Z79.84 Long term (current) use of oral hypoglycemic drugs; Z79.899 Other long term (current) drug therapy
CPT/HCPCS: 74177; 80047; 80076; 83690; 85025; 96360; 96361; 99284; Q9967

== ENCOUNTER → 2020-07-08 | Outpatient (CLI) | payer OTHER ==
--- NOTE | 2020-07-08 13:53 | REPMRS ---
Patient History The patient states she has not had a clinical breast exam in over a year. Patient is postmenopausal. No known family history of cancer. Patient states no breast complaints. Patient has signed the MRS history sheet. Digital Woman Screen Mammo: July 08, 2020 - Exam #: [id number] Bilateral CC and MLO view(s) were taken. Technologist: Paige Dinh, Technologist Prior study comparison: April 06, 2019, bilateral digital woman screen mammo performed at [facility]. January 15, 2013, bilateral digital mammo screening bilat, performed at [facility]. FINDINGS: There are scattered fibroglandular densities. Screening. Digital screening (2D) mammography was performed bilaterally in the CC and MLO projections. Additionally, breast tomosynthesis (3D mammography) was performed bilaterally in the CC and MLO projections. Todays exam was compared to the prior exams(s). By history, the patient has no complaints of a palpable breast abnormality or other significant breast complaints. The breasts are unchanged in size and shape. There are no javier-soft tissue densities or spiculated masses. There is no internal architectural distortion. There are no suspicious javier-calcific clusters. Skin thickening or nipple retraction is not present. IMPRESSION: BI-RADS Category 2- Benign Findings(s). There is no evidence of malignant alteration of the breasts. Followup examination recommended in one year. The Volpara volumetric breast density category is B, there are scattered areas of fibroglandular density. This mammogram was read with the assistance of [facility],an FDA approved computer aided detection system for mammography. The lifetime Tyrer-Cuzick score is 8.7 % Negative x-ray reports should not delay surgical consultation if a dominant or clinically suspicious mass is present. Not all breast cancers can be identified by mammography. Therefore, we recommend that you continue to perform regular breast self-examination and physical examination and then promptly contact your physician of any concerns or changes. Adenosis and dense breasts may obscure an underlying neoplasm. Assessment: BI-RADS/ACR category 2 mammogram. Benign Findings. Recommendation Routine screening mammogram of both breasts in 1 year. Electronically Signed By: Alfred Yang DO 07/08/20 [id number]
--- NOTE | 2020-07-08 14:15 | DEXAMM ---
INDICATION: M85.80 LOW BONE DENSITY FOR AGE. COMPARISON: None. TECHNIQUE: Bone density was measured using dual-energy x-ray absorptiometry (DEXA). FINDINGS: AP SPINE L1-L4 BMD 1.242 g/cm2 Young Adult T-Score 0.4 Age Matched Z-Score 1.1. LT FEMUR, TOTAL BMD 1.049 g/cm2 Young Adult T-Score 0.3 Age Matched Z-Score 0.9. LT NECK BMD 1.026 g/cm2 Young Adult T-Score -0.1 Age Matched Z-Score 0.9. RT FEMUR, TOTAL BMD 1.087 g/cm2 Young Adult T-Score 0.6 Age Matched Z-Score 1.2. RT NECK BMD 1.006 g/cm2 Young Adult T-Score -0.2 Age Matched Z-Score 0.7. IMPRESSION: There is normal bone density of the spine. There is normal bone density of the left hip. There is normal bone density of the right hip. FOLLOW-UP: Recommendation for the next bone density exam: 5 years. <Electronically signed by Shakeel Rivera > 07/08/20 [id number]
== END ==
LOC: M WHC 12:46
PROVIDERS: ATTEND Nurse Practitioner Family
DX: Z12.31 Encounter for screening mammogram for malignant neoplasm of breast (principal); M85.80 Other specified disorders of bone density and structure, unspecified site

== ENCOUNTER → 2020-07-21 | Outpatient (REF) | payer OTHER | LOC: M SFHCWAGY 10:07 | PROVIDERS: ATTEND Advanced Practice Midwife | DX: Z12.4 Encounter for screening for malignant neoplasm of cervix (principal) ==

== ENCOUNTER → 2020-09-10 | Outpatient (CLI) | payer OTHER ==
[2020-09-10 11:15] LABS: HEMOGLOBIN A1c 6.2 %
[2020-09-10 11:25] LABS: ALBUMIN 3.6 GM/DL (3.2-5.2); ALT/SGPT 14 U/L (12-78); BILIRUBIN,TOTAL 0.5 MG/DL (0.2-1.0); BLOOD UREA NITROGEN 14 MG/DL (7-18); CALCIUM LEVEL 8.8 MG/DL (8.5-10.1); CARBON DIOXIDE LEVEL 27 MEQ/L (21-32); CHLORIDE LEVEL 105 MEQ/L (98-107); CHOLESTEROL LEVEL 182 MG/DL (<200); CREATININE FOR GFR 0.59 MG/DL (0.55-1.30); FOLATE 13.4 NG/ML; FREE T4 0.87 NG/DL (0.76-1.46); GLOMERULAR FILTRATION RATE > 60.0 (>51); GLUCOSE, FASTING 96 MG/DL (70-100); HDL CHOLESTEROL 65 MG/DL (>40); LDL CHOLESTEROL 102 MG/DL (<100); NON-HDL-C 117 MG/DL; POTASSIUM SERUM 4.5 MEQ/L (3.5-5.1); SODIUM LEVEL 138 MEQ/L (136-145); TOTAL 25(OH) VITAMIN D 32.4 NG/ML (30.0-100.0); TOTAL PROTEIN 6.5 GM/DL (6.4-8.2); TRIGLYCERIDES LEVEL 77 MG/DL (<150); VITAMIN B12 LEVEL 850 PG/ML
[2020-09-10 11:30] LABS: CREATININE, URINE 62.7 MG/DL; MALB URINE SIEMENS 12.1 MG/L; MAU/CREAT RATIO 19.2 MCG/MG (0.0-30.0)
== END ==
LOC: M PLALAB 08:11
PROVIDERS: ATTEND Nurse Practitioner Family
DX: E11.40 Type 2 diabetes mellitus with diabetic neuropathy, unspecified (principal); E78.2 Mixed hyperlipidemia; E03.9 Hypothyroidism, unspecified; E55.9 Vitamin D deficiency, unspecified; E53.8 Deficiency of other specified B group vitamins

== ENCOUNTER → 2020-10-30 | Outpatient (REF) | payer OTHER | LOC: M LAB REF 19:13 | PROVIDERS: ATTEND Nurse Practitioner Family | DX: L91.8 Other hypertrophic disorders of the skin (principal) ==

== ENCOUNTER 2021-01-13 10:35 | Emergency (ER) | payer OTHER ==
[~2021-01-13] VITALS: Ht 172.7 cm; Wt 76.2 kg
[~2021-01-13 10:35] MED LIST changes: +METF-1191 PO; -METF-954 PO
--- OUTSIDE RECORDS SUMMARY | 2021-01-13 10:41 | CCD ---
Author Author [facility] Organization [facility] Address Unknown Phone Unavailable Care Team Providers Care Insulation Cupola Charger Name Role Phone Pily Finn Unavailable PROBLEMS Type Condition ICD9-CM Code [id number] Code Onset Dates Condition S tatus W/U Status Risk SNOMED Code Notes Problem Type 2 diabetes mellitus wit h hyperglycemia, without long-term current use of insulin E11.65 Active confirmed 98764656 Problem Mixed hyperlipidemia E78.2 Active confirmed 346595708 Problem Acquired hypothyroidism E03.9 Active confirmed 661053134 Problem Microalbuminuria R80.9 Active confirmed 312 568883 Problem Vitamin D deficiency E55.9 Active confirmed 10384537 Problem Insomnia, unspecified type G47.00 Active confirmed 885342448 Problem Obesity (BMI 30-39.9) E66.9 Active confirmed 419843443 Problem Low bone density for age M85.80 Active confirmed 027533736 Problem Distal paresthesia R20.2 Active confirmed 7 7114806 Problem Vitamin B 12 deficiency E53.8 Active confirmed 728783483 Problem Gastroesophageal reflux disease, esophagitis pre sence not specified K21.9 Active confirmed 189890605 Problem Recurrent herpes simplex B00.9 Active confirmed 49785313 Problem Type 2 diabetes mellitus wit h diabetic neuropathy, without long-term current use of insulin E11.40 Active confirmed 0716644 6 ALLERGIES No Known Allergies ENCOUNTERS from 1965 to 2021-01-02 Encounter Location Date Provider Diagnosis [address] [phone] [place] [address] Dec, Pily Finn Vitamin D deficiency E55.9 IMMUNIZATIONS Vaccine Route Administration Date Status COVID-19 dose #2 given elsewhere Unspecified Unknown Apr 1 Administered COVID-19 dose #1 given elsewhere Unspecified Unknown Jun Administered Influenza Denied Unknown Feb 14, 2019 Others SOCIAL HISTORY Tobacco Use: Social History Observation Description Date Details (start date - stop date) Former Smoker Sex Assigned At : Social History Observation Description Sex Assigned At Unknown Education: Question Answer Notes Level of Education: Finished High School Audit Question Answer Notes Total Score: 0 Interpretation: Alcohol Education Language: Question Answer Notes Languages spoken: Occitan Congregational: Question Answer Notes Congregational 21 [employer]an Domestic Violence: Question Answer Notes Status: Single Drug and Alcohol Question Answer Notes Total Score: 0 Interpretation: No problems reported Tobacco Use: Question Answer Notes Are you a: former smoker quit 03/2012 How long has it been since you last smoked? 5-10 years REASON FOR REFERRAL No Information VITAL SIGNS No information MEDICATIONS Medication SIG (Take, Route, Frequency, Duration) Notes Start Da te End Date Status Lancets - as directed DX: E11.65 Daily and as needed for 90 Active Levothyroxine Sodium 112 MCG 1 tablet in the morning o n an empty stomach Orally Once a day for 90 day(s) Active Vitamin B12 1000 MCG 1 tablet Orally Once a day Active Calcium + D3 600-200 MG-UNIT 1 tablet with a meal Oral ly Once a day for 90 day(s) Active Atorvastatin Calcium 10 MG TAKE ONE TABLET BY MOUTH EVERY DAY for 30 Active metFORMIN HCl 1000 MG 1 tablet with a meal Orally twice daily for 9 0 day(s) Active Glucometer as directed DX: E11.65 Daily for 99 months 2018 Active Blood Glucose Test - as directed In VitroDX: E11. 65 Daily fasting and prn for 90 days Active Januvia 100 MG TAKE ONE TABLET BY MOUTH EVERY DAY for 30 Active Acyclovir 400 MG 1 tablet Orally twice daily for 90 day(s) Active PROCEDURES No Information RESULTS No Results REASON FOR VISIT refill MEDICAL (GENERAL) HISTORY Type Description Date Medical History type 2 diabetes Medical History Hyperlipidemia Medical History Hypothyroid Medical History recurrent yeast infections Medical History recurrent HSV Surgical History C Section 1985 Surgical History C Section 1987 Surgical History Right Rotator Cuff repair 1991 Surgical History Colonoscopy, diverticulosis, hemorrhoids - Anders 09/2013 Hospitalization History childbirth Goals Section No Information Health Concerns No Information MEDICAL EQUIPMENT No Information MENTAL STATUS No Information FUNCTIONAL STATUS No Information ASSESSMENTS Encounter Date Diagnosis Assessment Notes Treatment Notes Treatm ent Clinical Notes Dec, Vitamin D deficiency (ICD-10 - E55.9) PLAN OF TREATMENT Medication Medication Name Sig Start Date Stop Date metFORMIN HCl 1000 MG 1 tablet with a meal Orally twice daily fo r 90 day(s) Calcium + D3 600-200 MG-UNIT 1 tablet with a meal Oral ly Once a day for 90 day(s) Next Appt Details Provider Name:Bouchra Blount, 2021-01-26 01:30:00 PM, [address] [place] [address], , [place], [place], [facility], Provider Name:Mercy Crooks, 01:00:00 PM, [facility], , [place], [address], Insurance Providers Payer Name Payer Address Payer Phone Insured Name Patient Relati onship to Insured Coverage Start Date Coverage End Date [facility] [address] [address] [facility] [phone] ROGERIO WONG self
--- OUTSIDE RECORDS SUMMARY | 2021-01-13 10:41 | CCD ---
Author Author [facility] Organization [facility] Address Unknown Phone Unavailable Care Team Providers Care Director Of Staff Development Name Role Phone Parish Arti He PROBLEMS Type Condition ICD9-CM Code [id number] Code Onset Dates Condition S tatus W/U Status Risk SNOMED Code Notes Problem Type 2 diabetes mellitus wit h hyperglycemia, without long-term current use of insulin E11.65 Active confirmed 64553380 Problem Mixed hyperlipidemia E78.2 Active confirmed 722407899 Problem Acquired hypothyroidism E03.9 Active confirmed 819979444 Problem Microalbuminuria R80.9 Active confirmed 312 771453 Problem Vitamin D deficiency E55.9 Active confirmed 81680731 Problem Insomnia, unspecified type G47.00 Active confirmed 542975341 Problem Obesity (BMI 30-39.9) E66.9 Active confirmed 410833112 Problem Low bone density for age M85.80 Active confirmed 958597827 Problem Distal paresthesia R20.2 Active confirmed 7 0775078 Problem Vitamin B 12 deficiency E53.8 Active confirmed 907066245 Problem Gastroesophageal reflux disease, esophagitis pre sence not specified K21.9 Active confirmed 224804379 Problem Recurrent herpes simplex B00.9 Active confirmed 62218462 Problem Type 2 diabetes mellitus wit h diabetic neuropathy, without long-term current use of insulin E11.40 Active confirmed 6535096 6 ALLERGIES No Known Allergies ENCOUNTERS from 1965 to 2020-10-28 Encounter Location Date Provider Diagnosis [address] [phone] [place] [address] Oct, Arti Lugo Mixed hyperlipidemia E78.2 a nd Type 2 diabetes mellitus with diabetic neuropathy, without long-term current use of insulin E11.40 IMMUNIZATIONS Vaccine Route Administration Date Status COVID-19 dose #2 given elsewhere Unspecified Unknown Jun Administered COVID-19 dose #1 given elsewhere Unspecified Unknown Jun Administered Influenza Denied Unknown Feb 14, 2019 Others SOCIAL HISTORY Tobacco Use: Social History Observation Description Date Details (start date - stop date) Former Smoker Sex Assigned At : Social History Observation Description Sex Assigned At Unknown Education: Question Answer Notes Level of Education: Finished High School Audit Question Answer Notes Total Score: 1 Interpretation: Alcohol Education Language: Question Answer Notes Languages spoken: British Orthodox: Question Answer Notes Orthodox 21 Che[employer]ism Domestic Violence: Question Answer Notes Status: Single [...] Notes Start Da te End Date Status Atorvastatin Calcium 10 MG 1 tablet Orally Once a day for 90 days Active Levothyroxine Sodium 112 MCG 1 tablet in the morning o n an empty stomach Orally Once a day for 90 day(s) Active Glucometer as directed DX: E11.65 Daily for 99 months 2018 Active Acyclovir 400 MG 1 tablet Orally twice daily for 90 day(s) Active Calcium + D3 600-200 MG-UNIT 1 tablet with a meal Oral ly Once a day for 90 day(s) Active Blood Glucose Test - as directed In VitroDX: E11. 65 Daily fasting and prn for 90 days Active Januvia 100 MG 1 tablet Orally Once a day for 90 days Active Lancets - as directed DX: E11.65 Daily and as needed for 90 Active Vitamin B12 1000 MCG 1 tablet Orally Once a day Active metFORMIN HCl 1000 MG 1 tablet with a meal Orally twice daily for 9 0 day(s) Active PROCEDURES No Information RESULTS No Results REASON FOR VISIT refills MEDICAL (GENERAL) HISTORY Type Description Date Medical [...] Notes Treatment Notes Treatm ent Clinical Notes Oct, Mixed hyperlipidemia (ICD-10 - E78.2) Oct, Type 2 diabetes mellitus wit h diabetic neuropathy, without long- term current use of insulin (ICD-10 - E11.40) PLAN OF TREATMENT Medication Medication Name Sig Start Date Stop Date Januvia 100 MG 1 tablet Orally Once a day for 90 days Atorvastatin Calcium 10 MG 1 tablet Orally Once a day for 90 day s Calcium + D3 600-200 MG-UNIT 1 tablet with a meal Oral ly Once a day for 90 day(s) Vitamin B12 1000 MCG 1 tablet Orally Once a day metFORMIN HCl 1000 MG 1 tablet with a meal Orally twice daily fo r 90 day(s) Acyclovir 400 MG 1 tablet Orally twice daily for 90 day(s) Levothyroxine Sodium 112 MCG 1 tablet in the morning o n an empty stomach Orally Once a day for 90 day(s) Next Appt Details Provider Name:Arti Lugo, 2020-10-30 10:3 0:00 AM, [address] [place] [address] , [place], [address], Provider Name:Bouchra Blount, 2021-01-26 01:30:00 PM, [address] [place] [address], , [place], [address], Provider Name:Arti Lugo, 2021-03-25 11:3 0:00 AM, [address] [place] [address] , [place], [address], Insurance Providers Payer Name Payer Address Payer Phone Insured Name Patient Relati onship to Insured Coverage Start Date Coverage End Date [facility] [address] [address] [facility] [phone] ROGERIO WONG self
--- OUTSIDE RECORDS SUMMARY | 2021-01-13 10:41 | CCD ---
Author Author [facility] Organization [facility] Address Unknown Phone Unavailable Care Team Providers Care Dye Range Tender Name Role Phone Vu Dhaliwal MD Unavailable Unavailable Vu Dhaliwal MD Unavailable Unavailable Vu Dhaliwal MD Unavailable Unavailable Vu Dhaliwal MD Unavailable Unavailable Vu Dhaliwal MD Unavailable Unavailable Vu Dhaliwal MD Unavailable Unavailable Vu Dhaliwal MD Unavailable Unavailable Vu Dhaliwal MD Unavailable Unavailable Vu Dhaliwal MD Unavailable Unavailable Vu Dhaliwal MD Unavailable Unavailable Vu Dhaliwal MD Unavailable Unavailable Vu Dhaliwal MD Unavailable Unavailable Vu Dhaliwal MD Unavailable Unavailable Vu Dhaliwal MD Unavailable Unavailable Vu Dhaliwal MD Unavailable Unavailable Vu Dhaliwal MD Unavailable Unavailable Vu Dhaliwal MD Unavailable Unavailable Vu Dhaliwal MD Unavailable Unavailable Vu Dhaliwal MD Unavailable Unavailable Vu Dhaliwal MD Unavailable Unavailable Vu Dhaliwal MD Unavailable Unavailable Vu Dhaliwal MD Unavailable Unavailable Vu Dhaliwal MD Unavailable Unavailable Vu Dhaliwal MD Unavailable Unavailable Vu Dhaliwal MD Unavailable Unavailable Vu Dhaliwal MD Unavailable Unavailable Vu Dhaliwal MD Unavailable Unavailable Vu Dhaliwal MD Unavailable Unavailable Vu Dhaliwal MD Unavailable Unavailable Vu Dhaliwal MD Unavailable Unavailable Vu Dhaliwal MD Unavailable Unavailable Vu Dhaliwal MD Unavailable Unavailable Vu Dhaliwal MD Unavailable Unavailable Vu Dhaliwal MD Unavailable Unavailable Vu Dhaliwal MD Unavailable Unavailable Vu Dhaliwal MD Unavailable Unavailable Vu Dhaliwal MD Unavailable Unavailable Vu Dhaliwal MD Unavailable Unavailable Vu Dhaliwal MD Unavailable Unavailable Vu Dhaliwal MD Unavailable Unavailable Vu Dhaliwal MD Unavailable Unavailable Vu Dhaliwal MD Unavailable Unavailable Vu Dhaliwal MD Unavailable Unavailable Vu Dhaliwal MD Unavailable Unavailable Vu Dhaliwal MD Unavailable Unavailable Vu Dhaliwal MD Unavailable Unavailable Vu Dhaliwal MD Unavailable Unavailable Vu Dhaliwal MD Unavailable Unavailable Vu Dhaliwal MD Unavailable Unavailable Vu Dhaliwal MD Unavailable Unavailable Vu Dhaliwal MD Unavailable Unavailable Vu Dhaliwal MD Unavailable Unavailable Vu Dhaliwal MD Unavailable Unavailable Vu Dhaliwal MD Unavailable Unavailable Vu Dhaliwal MD Unavailable Unavailable Vu Dhaliwal MD Unavailable Unavailable Vu Dhaliwal MD Unavailable Unavailable Vu Dhaliwal MD Unavailable Unavailable Vu Dhaliwal MD Unavailable Unavailable Vu Dhaliwal MD Unavailable Unavailable Vu Dhaliwal MD Unavailable Unavailable Vu Dhaliwal MD Unavailable Unavailable Vu Dhaliwal MD Unavailable Unavailable Vu Dhaliwal MD Unavailable Unavailable Vu Dhaliwal MD Unavailable Unavailable Vu Dhaliwal MD Unavailable Unavailable Vu Dhaliwal MD Unavailable Unavailable Vu Dhaliwal MD Unavailable Unavailable Vu Dhaliwal MD Unavailable Unavailable Vu Dhaliwal MD Unavailable Unavailable Vu Dhaliwal MD Unavailable Unavailable Vu Dhaliwal MD Unavailable Unavailable Vu Dhaliwal MD Unavailable Unavailable Vu Dhaliwal MD Unavailable Unavailable Vu Dhaliwal MD Unavailable Unavailable Vu Dhaliwal MD Unavailable Unavailable Vu Dhaliwal MD Unavailable Unavailable Vu Dhaliwal MD Unavailable Unavailable Vu Dhaliwal MD Unavailable Unavailable Vu Dhaliwal MD Unavailable Unavailable Vu Dhaliwal MD Unavailable Unavailable Vu Dhaliwal MD Unavailable Unavailable Vu Dhaliwal MD Unavailable Unavailable Vu Dhaliwal MD Unavailable Unavailable Vu Dhaliwal MD Unavailable Unavailable Vu Dhaliwal MD Unavailable Unavailable Vu Dhaliwal MD Unavailable Unavailable Vu Dhaliwal MD Unavailable Unavailable Vu Dhaliwal MD Unavailable Unavailable Vu Dhaliwal MD Unavailable Unavailable Vu Dhaliwal MD Unavailable Unavailable Vu Dhaliwal MD Unavailable Unavailable Vu Dhaliwal MD Unavailable Unavailable Sonido Treviño MD Unavailable Unavailable Fish, B Luigi HART Unavailable Unavailable Fish, B Luigi HART Unavailable Unavailable Fish, B Luigi HART Unavailable Unavailable Fish, B Luigi HART Unavailable Unavailable Fish, B Luigi HART Unavailable Unavailable Fish, B Luigi HART Unavailable Unavailable Fish, B Luigi HART Unavailable Unavailable Fish, B Luigi HART Unavailable Unavailable Fish, B Luigi HART Unavailable Unavailable Fish, B Luigi HART Unavailable Unavailable Fish, B Luigi HART Unavailable Unavailable Fish, B Luigi HART Unavailable Unavailable Fish, B Luigi HART Unavailable Unavailable Fish, B Luigi HART Unavailable Unavailable Fish, B Luigi HART Unavailable Unavailable Fish, B Luigi HART Unavailable Unavailable Fish, B Luigi HART Unavailable Unavailable Fish, B Luigi HART Unavailable Unavailable Fish, B Luigi HART Unavailable Unavailable Fish, B Luigi HART Unavailable Unavailable Fish, B Luigi HART Unavailable Unavailable Fish, B Luigi HART Unavailable Unavailable Fish, B Luigi HART Unavailable Unavailable Fish, B Luigi HART Unavailable Unavailable Fish, B Luigi HART Unavailable Unavailable Fish, B Luigi HART Unavailable Unavailable Fish, B Luigi HART Unavailable Unavailable Fish, B Luigi HART Unavailable Unavailable Fish, B Luigi HART Unavailable Unavailable Fish, B Luigi HART Unavailable Unavailable Fish, B Luigi HART Unavailable Unavailable Fish, B Luigi HART Unavailable Unavailable Fish, B Luigi HART Unavailable Unavailable Fish, B Luigi HART Unavailable Unavailable Fish, B Luigi HART Unavailable Unavailable Fish, B Luigi HART Unavailable Unavailable Fish, B Luigi HART Unavailable Unavailable Fish, B Luigi HART Unavailable Unavailable Fish, B Luigi HART Unavailable Unavailable Fish, B Luigi HART Unavailable Unavailable Fish, B Luigi HART Unavailable Unavailable Fish, B Luigi HART Unavailable Unavailable Fish, B Luigi HART Unavailable Unavailable Fish, B Luigi HART Unavailable Unavailable Fish, B Luigi HART Unavailable Unavailable Fish, B Luigi HART Unavailable Unavailable Fish, B Luigi HART Unavailable Unavailable Fish, B Luigi HART Unavailable Unavailable Fish, B Luigi HART Unavailable Unavailable Fish, B Luigi HART Unavailable Unavailable Fish, B Luigi HART Unavailable Unavailable Fish, B Luigi HART Unavailable Unavailable Fish, B Luigi HART Unavailable Unavailable Fish, B Luigi HART Unavailable Unavailable Fish, B Luigi HART Unavailable Unavailable Fish, Monica Sosa [facility], PA-C Unavailable Unavailabl e Fish, Monica Sosa [facility], PA-C Unavailable Unavailabl e Fish, Monica Sosa [facility], PA-C Unavailable Unavailabl e Fish, Monica Sosa [facility], PA-C Unavailable Unavailabl e Fish, [facility], PA-C Unavailable Unavailabl e Fish, [facility], PA-C Unavailable Unavailabl e Fish, [facility], PA-C Unavailable Unavailabl e Fish, [facility], PA-C Unavailable Unavailabl e Fish, [facility], PA-C Unavailable Unavailabl e Fish, [facility], PA-C Unavailable Unavailabl e Fish, [facility], PA-C Unavailable Unavailabl e Fish, [facility], PA-C Unavailable Unavailabl e Fish, [facility], PA-C Unavailable Unavailabl e Fish, [facility], PA-C Unavailable Unavailabl e Fish, [facility], PA-C Unavailable Unavailabl e Fish, [facility], PA-C Unavailable Unavailabl e Fish, [facility], PA-C Unavailable Unavailabl e Fish, [facility], PA-C Unavailable Unavailabl e Fish, [facility], PA-C Unavailable Unavailabl e Fish, [facility], PA-C Unavailable Unavailabl e Fish, [facility], PA-C Unavailable Unavailabl e Fish, [facility], PA-C Unavailable Unavailabl e Fish, [facility], PA-C Unavailable Unavailabl e Fish, [facility], PA-C Unavailable Unavailabl e Fish, [facility], PA-C Unavailable Unavailabl e Fish, [facility], PA-C Unavailable Unavailabl e Fish, [facility], PA-C Unavailable Unavailabl e Fish, [facility], PA-C Unavailable Unavailabl e Fish, [facility], PA-C Unavailable Unavailabl e Fish, [facility], PA-C Unavailable Unavailabl e Fish, [facility], PA-C Unavailable Unavailabl e Fish, [facility], PA-C Unavailable Unavailabl e Fish, [facility], PA-C Unavailable Unavailabl e Fish, [facility], PA-C Unavailable Unavailabl e Fish, [facility], PA-C Unavailable Unavailabl e Fish, [facility], PA-C Unavailable Unavailabl e Reddy, Pippa Hammonds MD Unavailable Unavailable Reddy, Pippa Hammonds MD Unavailable Unavailable Reddy, Pippa Hammonds MD Unavailable Unavailable Reddy, L Cassius HART Unavailable Unavailable Reddy, L Cassius HART Unavailable Unavailable Reddy, Pippa Hammonds MD Unavailable Unavailable Reddy, L Cassius HART Unavailable Unavailable Reddy, L Cassius HART Unavailable Unavailable Reddy, L Cassius HART Unavailable Unavailable Reddy, L Cassius HART Unavailable Unavailable Reddy, L Cassius HART Unavailable Unavailable Reddy, L Cassius HART Unavailable Unavailable Reddy, L Cassius HART Unavailable Unavailable Reddy, L Cassius HART Unavailable Unavailable Reddy, L Cassius HART Unavailable Unavailable Reddy, L Cassius HART Unavailable Unavailable Reddy, L Cassius HART Unavailable Unavailable Reddy, L Cassius HART Unavailable Unavailable Reddy, L Cassius HART Unavailable Unavailable Reddy, L Cassius HART Unavailable Unavailable Reddy, L Cassius HART Unavailable Unavailable Reddy, L Cassius HART Unavailable Unavailable Reddy, L Cassius HART Unavailable Unavailable Reddy, L Cassius HART Unavailable Unavailable Reddy, L Cassius HART Unavailable Unavailable Reddy, L Cassius HART Unavailable Unavailable Reddy, L Cassius HART Unavailable Unavailable Reddy, L Cassius HART Unavailable Unavailable Reddy, L Cassius HART Unavailable Unavailable Reddy, L Cassius HART Unavailable Unavailable Reddy, L Cassius HART Unavailable Unavailable Reddy, L Cassius HART Unavailable Unavailable Reddy, L Cassius HART Unavailable Unavailable Reddy, L Cassius HART Unavailable Unavailable Reddy, L Cassius HART Unavailable Unavailable Reddy, L Cassius HART Unavailable Unavailable Reddy, L Cassius HART Unavailable Unavailable Reddy, L Cassius HART Unavailable Unavailable Reddy, Pippa Hammonds MD Unavailable Unavailable Reddy, L Cassius HART Unavailable Unavailable Reddy, Pippa Hammonds MD Unavailable Unavailable Reddy, Pippa Hammonds MD Unavailable Unavailable Reddy, L Cassius HART Unavailable Unavailable Reddy, Pippa Hammonds MD Unavailable Unavailable Reddy, L Cassius HART Unavailable Unavailable Reddy, L Cassius HART Unavailable Unavailable Reddy, Pippa Hammonds MD Unavailable Unavailable Reddy, Pippa Hammonds MD Unavailable Unavailable Reddy, L Cassius HART Unavailable Unavailable Reddy, Pippa Hammonds MD Unavailable Unavailable Letitia Avelar MD Unavailable Unavailable Letitia Avelar MD Unavailable Unavailable Letitia Avelar MD Unavailable Unavailable Letitia Avelar MD Unavailable Unavailable Letitia Avelar MD Unavailable Unavailable Letitia Avelar MD Unavailable Unavailable Letitia Avelar MD Unavailable Unavailable Letitia Avelar MD Unavailable Unavailable Letitia Avelar MD Unavailable Unavailable Letitia Avelar MD Unavailable Unavailable Letitia Avelar MD Unavailable Unavailable Valentino, Letitia Sosa MD Unavailable Unavailable Valentino, A Sheila HART Unavailable Unavailable Valentino, A Sheila HART Unavailable Unavailable Valentino, A Sheila HART Unavailable Unavailable Valentino, A Sheila HART Unavailable Unavailable Valentino, A Sheila HART Unavailable Unavailable Valentino, A Sheila HART Unavailable Unavailable Valentino, A Sheila HART Unavailable Unavailable Valentino, A Sheila HART Unavailable Unavailable Valentino, A Sheila HART Unavailable Unavailable Valentino, A Sheila HART Unavailable Unavailable Valentino, A Sheila HART Unavailable Unavailable Valentino, A Sheila HART Unavailable Unavailable Valentino, A Sheila HART Unavailable Unavailable Valentino, A Sheila HART Unavailable Unavailable Valentino, Letitia Sosa MD Unavailable Unavailable Valentino, A Sheila HART Unavailable Unavailable Valentino, A Sheila HART Unavailable Unavailable Valentino, A Sheila HART Unavailable Unavailable Valentino, A Sheila HART Unavailable Unavailable Valentino, A Sheila HART Unavailable Unavailable Valentino, A Sheila HART Unavailable Unavailable Valentino, A Sheila HART Unavailable Unavailable Valentino, A Sheila HART Unavailable Unavailable Valentino, A Sheila HART Unavailable Unavailable Valentino, A Sheila HART Unavailable Unavailable Valentino, A Sheila HART Unavailable Unavailable Valentino, A Sheila HART Unavailable Unavailable Valentino, A Sheila HART Unavailable Unavailable Valentino, A Sheila HART Unavailable Unavailable Valentino, A Sheila HART Unavailable Unavailable Valentino, A Sheila HART Unavailable Unavailable Valentino, A Sheila HART Unavailable Unavailable Valentino, A Sheila HART Unavailable Unavailable Valentino, A Sheila HART Unavailable Unavailable Valentino, A Sheila HART Unavailable Unavailable Valentino, A Sheila HART Unavailable Unavailable Valentino, A Sheila HART Unavailable Unavailable Valentino, A Sheila HART Unavailable Unavailable Valentino, A Sheila HART Unavailable Unavailable Valentino, A Sheila HART Unavailable Unavailable Valentino, A Sheila HART Unavailable Unavailable Valentino, A Sheila HART Unavailable Unavailable Valentino, A Sheila HART Unavailable Unavailable Valentino, A Sheila HART Unavailable Unavailable Valention, Letitia Sosa MD Unavailable Unavailable Valentino, Letitia Sosa MD Unavailable Unavailable Valentino, Letitia Sosa MD Unavailable Unavailable Valentino, A Sheila HART Unavailable Unavailable Valentino, A Sheila HART Unavailable Unavailable Valentino, A Sheila HART Unavailable Unavailable Vlaentino, A Sheila HART Unavailable Unavailable Valentino, A Sheila HART Unavailable Unavailable Valentino, A Sheila HART Unavailable Unavailable Valentino, A Sheila HART Unavailable Unavailable Valentino, A Sheila HART Unavailable Unavailable Valentino, A Sheila HART Unavailable Unavailable Valentino, A Sheila HART Unavailable Unavailable Valentino, A Sheila HART Unavailable Unavailable Valentino, A Sheila HART Unavailable Unavailable Valentino, Letitia Sosa MD Unavailable Unavailable Valentino, Letitia Sosa MD Unavailable Unavailable Valentino, Lteitia Sosa MD Unavailable Unavailable Letitia Avelar MD Unavailable Unavailable Letitia Avelar MD Unavailable Unavailable Letitia Avelar MD Unavailable Unavailable Letitia Avelar MD Unavailable Unavailable Letitia Avelar MD Unavailable Unavailable Letitia Avelar MD Unavailable Unavailable Letitia Avelar MD Unavailable Unavailable Letitia Avelar MD Unavailable Unavailable DRAZEK, I SCAR PA Unavailable Unavailable DRAZEK, I SCAR PA Unavailable Unavailable DRAZEK, I SCAR PA Unavailable Unavailable DRAZEK, I SCAR PA Unavailable Unavailable DRAZEK, I SCAR PA Unavailable Unavailable DRAZEK, I SCAR PA Unavailable Unavailable DRAZEK, I SCAR PA Unavailable Unavailable DRAZEK, I SCAR PA Unavailable Unavailable DRAZEK, I SCAR PA Unavailable Unavailable DRAZEK, I SCAR PA Unavailable Unavailable DRAZEK, I SCAR PA Unavailable Unavailable DRAZEK, I SCAR PA Unavailable Unavailable DRAZEK, I SCAR PA Unavailable Unavailable DRAZEK, I SCAR PA Unavailable Unavailable DRAZEK, I SCAR PA Unavailable Unavailable DRAZEK, I SCAR PA Unavailable Unavailable DRAZEK, I SCAR PA Unavailable Unavailable DRAZEK, I SCAR PA Unavailable Unavailable DRAZEK, I SCAR PA Unavailable Unavailable DRAZEK, I SCAR PA Unavailable Unavailable DRAZEK, I SCAR PA Unavailable Unavailable DRAZEK, I SCAR PA Unavailable Unavailable DRAZEK, I SCAR PA Unavailable Unavailable DRAZEK, I SCAR PA Unavailable Unavailable DRAZEK, I SCAR PA Unavailable Unavailable DRAZEK, I SCAR PA Unavailable Unavailable DRAZEK, I SCAR PA Unavailable Unavailable DRAZEK, I SCAR PA Unavailable Unavailable DRAZEK, I SCAR PA Unavailable Unavailable DRAZEK, I SCAR PA Unavailable Unavailable Jia CIFUENTES MD Unavailable Unavailable Jia CIFUENTES MD Unavailable Unavailable Jia CIFUENTES MD Unavailable Unavailable Jia CIFUENTES MD Unavailable Unavailable Jia CIFUENTES MD Unavailable Unavailable Jia CIFUENTES MD Unavailable Unavailable Jia CIFUENTES MD Unavailable Unavailable Jia CIFUENTES MD Unavailable Unavailable Jia CIFUENTES MD Unavailable Unavailable Jia CIFUENTES MD Unavailable Unavailable Jia CIFUENTES MD Unavailable Unavailable Jia CIFUENTES MD Unavailable Unavailable Jia CIFUENTES MD Unavailable Unavailable Jia CIFUENTES MD Unavailable Unavailable Jia CIFUENTES MD Unavailable Unavailable Jia CIFUENTES MD Unavailable Unavailable Jia CIFUENTES MD Unavailable Unavailable Jia CIFUENTES MD Unavailable Unavailable Jia CIFUENTES MD Unavailable Unavailable Jia CIFUENTES MD Unavailable Unavailable Jia CIFUENTES MD Unavailable Unavailable Jia CIFUENTES MD Unavailable Unavailable Jia CIFUENTES MD Unavailable Unavailable Jia CIFUENTES MD Unavailable Unavailable Jia CIFUENTES MD Unavailable Unavailable Jia CIFUENTES MD Unavailable Unavailable Jia CIFUENTES MD Unavailable Unavailable Jia CIFUENTES MD Unavailable Unavailable Jia CIFUENTES MD Unavailable Unavailable Jia CIFUENTES MD Unavailable Unavailable Jia CIFUENTES MD Unavailable Unavailable Jia CIFUENTES MD Unavailable Unavailable Jia CIFUENTES MD Unavailable Unavailable Jia CIFUENTES MD Unavailable Unavailable Jia CIFUENTES MD Unavailable Unavailable Jia CIFUENTES MD Unavailable Unavailable Jia CIFUENTES MD Unavailable Unavailable Jia CIFUENTES MD Unavailable Unavailable Jia CIFUENTES MD Unavailable Unavailable Jia CIFUENTES MD Unavailable Unavailable Jia CIFUENTES MD Unavailable Unavailable Jia CIFUENTES MD Unavailable Unavailable Jia CIFUENTES MD Unavailable Unavailable Jia CIFUENTES MD Unavailable Unavailable Jia CIFUENTES MD Unavailable Unavailable Jia CIFUENTES MD Unavailable Unavailable Jia CIFUENTES MD Unavailable Unavailable Jia CIFUENTES MD Unavailable Unavailable Jia CIFUENTES MD Unavailable Unavailable iJa CIFUENTES MD Unavailable Unavailable Jia CIFUENTES MD Unavailable Unavailable Jia CIFUENTES MD Unavailable Unavailable Jia CIFUENTES MD Unavailable Unavailable Jia CIFUENTES MD Unavailable Unavailable Jia CIFUENTES MD Unavailable Unavailable Jia CIFUENTES MD Unavailable Unavailable Jia CIFUENTES MD Unavailable Unavailable Jia CIFUENTES MD Unavailable Unavailable Jia CIFUENTES MD Unavailable Unavailable Jia CIFUENTES MD Unavailable Unavailable Jia CIFUENTES MD Unavailable Unavailable Jia CIFUENTES MD Unavailable Unavailable Jia CIFUENTES MD Unavailable Unavailable Jia CIFUENTES MD Unavailable Unavailable Jia CIFUENTES MD Unavailable Unavailable Jia CIFUENTES MD Unavailable Unavailable Jia CIFUENTES MD Unavailable Unavailable Jia CIFUENTES MD Unavailable Unavailable Jia CIFUENTES MD Unavailable Unavailable Jia CIFUENTES MD Unavailable Unavailable Jia CIFUENTES MD Unavailable Unavailable Jia CIFUENTES MD Unavailable Unavailable Jia CIFUENTES MD Unavailable Unavailable Jia CIFUENTES MD Unavailable Unavailable Jia CIFUENTES MD Unavailable Unavailable Jia CIFUENTES MD Unavailable Unavailable Jia CIFUENTES MD Unavailable Unavailable Jia CIFUENTES MD Unavailable Unavailable Jia CIFUENTES MD Unavailable Unavailable Re-disclosure Warning The records that you are about to access may contain information from federally-assisted alcohol or drug abuse programs. If such information is present, then the following federally mandated warning applies: This information has been disclosed to you from records protected by federal confidentiality rules (42 CFR part 2). The federal rules prohibit you from making any further disclosure of this information unless further disclosure is expressly permitted by the written consent of the person to whom it pertains or as otherwise permitted by 42 CFR part 2. A general authorization for the release of medical or other information is NOT sufficient for this purpose. The Federal rules restrict any use of the information to criminally investigate or prosecute any alcohol or drug abuse patient.The records that you are about to access may contain highly sensitive health information, the redisclosure of which is protected by Article 27-F of the [facility] Public Health law. If you continue you may have access to information: Regarding HIV / AIDS; Provided by facilities licensed or operated by the [facility] Office of Mental Health; or Provided by the [facility] Office for People With Developmental Disabilities. If such information is present, then the following [facility] mandated warning applies: This information has been disclosed to you from confidential records which are protected by state law. State law prohibits you from making any further disclosure of this information without the specific written consent of the person to whom it pertains, or as otherwise permitted by law. Any unauthorized further disclosure in violation of state law may result in a fine or half-way sentence or both. A general authorization for the release of medical or other information is NOT sufficient authorization for further disc losure. Allergies and Adverse Reactions Type Description Substance Reaction Status Data Source(s ) Propensity to adverse reactions NO KNOWN ALLERGIES NO KNOWN ALLERGIES [facility] Allergy to substance Allergy to substance Allergy to substance IESHA ([facility]) Allergy to substance Allergy to substance Allergy to substance IESHA ([facility]) Family History Family Member Name Family Member Gender Family Member Status Date o f Status Description Data Source(s) Unknown Female Diagnosis 09/08/2017 12:00:00 AM EDT [facility] ([facility]) Unknown Female Diagnosis 02/09/2016 12:00:00 AM EST [facility] ([facility]) Unknown Female Diagnosis 02/09/2016 12:00:00 AM EST [facility] ([facility]) Unknown Female Diagnosis 01/15/2014 12:00:00 AM EST [facility] ([facility]) Unknown Male Problem [facility] ([facility] () Encounters Encounter Providers Location Date Indications Data Source(s ) [place] [address] [facility] [address] 01/02/2021 12:00:00 AM EDT [facility]CW1 ([facility]) [place] [address] [facility] [place] [address] 12/18/2020 12:00:00 AM EDT [facility]CW1 ([facility]) [place] [address] [facility] [place] [address] 11/21/2020 12:00:00 AM EDT [facility]1 [facility] [place] [address] [facility] [place] [address] 10/30/2020 12:00:00 AM EDT [facility]CW1 [facility] [place] [address] [facility] [place] [address] 10/28/2020 12:00:00 AM EDT eCW1 ([facility]) Outpatient Referrer: KAYLEEN CIFUENTES MD 09/24/2020 01:4 2:25 PM EDT Displaced fracture of proximal phalanx of right ring finger, subsequent encounter for fracture with malunion [facility] Displaced fracture of proximal phalanx o f right ring finger, subsequent encounter for fracture with malunion Outpatient Attender: KAYLEEN CIFUENTES MD [id number] 09/24/2020 12:00:00 AM EDT [facility] [place] [address] [facility] [address] 09/24/2020 12:00:00 AM EDT eCW1 ([facility]) [place] [address] [facility] [address] 09/17/2020 12:00:00 AM EDT eCW1 ([facility]) [place] [address] [facility] [address] 08/18/2020 12:00:00 AM EDT eCW1 ([facility]) Outpatient Attender: KAYLEEN George: Luigi Womack [id number] 07/30/2020 12:00:00 AM EDT - 08/06/2020 03:24:27 PM [facility] [place] [address] [facility] [address] 07/21/2020 12:00:00 AM EDT eCW1 ([facility]) Office Visit Attender: Sheila MANRIQUEZ PA-C Physical Therapy 07/15/2020 09:30:00 AM EDT [facility]ENT ([facility]) Office Visit Attender: SCAR LLOYD Physical Therapy 2020 05:00:00 PM EDT MEDENT ([facility]) Office Visit Attender: Sheila MANRIQUEZ PA-C Physical Therapy 06/25/2020 08:45:00 AM EDT MEDENT ([facility]) [place] [address] [facility] [address] 06/25/2020 12:00:00 AM EDT eCW1 ([facility]) Outpatient [address] [facility] [address] 06/18/2020 12:00:00 AM EDT eCW1 ([facility]) Office Visit Attender: Sheila MANRIQUEZ PA-C Physical Therapy 06/03/2020 01:15:00 PM EDT MEDENT ([facility]) Antonio Dhaliwal MD: [address] [place] [phone], Ph. Attender: Antonio Dhaliwal MD [facility] Medical 06/03/2020 12:00:00 AM EDT IESHA ([facility]) Office Visit Attender: SCAR LLOYD Physical Therapy 2020 11:00:00 AM EDT MEDENT ([facility]) Outpatient Attender: Luigi Treviño MD Physical Therapy 05/26/2020 0 9:00:00 AM EDT MEDENT ([facility]) Office Visit Attender: SCAR LLOYD Physical Therapy 2020 10:00:00 AM EST MEDENT ([facility]) Antonio Dhaliwal MD: [address] [place] [phone], Ph. Attender: Antonio Dhaliwal MD [facility] Medical 05/08/2020 12:00:00 AM EST IESHA ([facility]) Antonio Dhaliwal MD: [address] [place] [phone], Ph. Attender: Antonio Dhaliwal MD [facility] Medical 05/08/2020 12:00:00 AM EST IESHA ([facility]) Office Visit Attender: SCAR LLOYD Physical Therapy 2020 09:30:00 AM EST MEDENT ([facility]) Office Visit Attender: SCAR LLOYD Physical Therapy 2020 10:00:00 AM EST MEDENT ([facility]) OFFICE OUTPATIENT VISIT 15 MINUTES Attender: Cassius Reddy MD Phys ical Therapy 03/17/2020 08:15:00 AM EST MEDENT ([facility]) Attender: Sheila Avelar MD [facility] 1 04/01/2019 10:27:00 AM EST - 01/31/2020 10:27:00 AM EST NextGen ([facility]) Outpatient [address] [facility] [address] 01/28/2020 12:00:00 AM EST eCW1 ([facility]) Office Visit Attender: SCAR LLOYD Physical Therapy 2019 10:30:00 AM EDT MEDENT ([facility]) Office Visit Attender: SCAR LLOYD Physical Therapy 2019 10:00:00 AM EDT MEDENT ([facility]) Outpatient [address] [facility] [address] 12/20/2019 12:00:00 AM EDT eCW1 ([facility]) OFFICE OUTPATIENT NEW 30 MINUTES Attender: SCAR LLOYD Physic al Therapy 12/13/2019 03:30:00 PM EDT MEDENT ([facility]) Outpatient [address] [facility] [address] 12/13/2019 12:00:00 AM EDT eCW1 ([facility]) Immunizations Vaccine Date Status Description Data Source(s) COVID-19 dose #1 given elsewhere Unspecified 06/18/2020 11:3 0:00 AM EDT completed eCW1 ([facility]) COVID-19 dose #2 given elsewhere Unspecified 06/18/2020 11:3 0:00 AM EDT completed eCW1 ([facility]) COVID-19 dose #1 given elsewhere Unspecified 06/18/2020 11:3 0:00 AM EDT completed eCW1 ([facility]) COVID-19 dose #2 given elsewhere Unspecified 06/18/2020 11:3 0:00 AM EDT completed eCW1 ([facility]) COVID-19 dose #1 given elsewhere Unspecified 06/18/2020 11:3 0:00 AM EDT completed eCW1 ([facility]) COVID-19 dose #2 given elsewhere Unspecified 06/18/2020 11:3 0:00 AM EDT completed eCW1 ([facility]) COVID-19 dose #1 given elsewhere Unspecified 06/18/2020 11:3 0:00 AM EDT completed eCW1 ([facility]) COVID-19 dose #2 given elsewhere Unspecified 06/18/2020 11:3 0:00 AM EDT completed eCW1 ([facility]) COVID-19 dose #1 given elsewhere Unspecified 06/18/2020 11:3 0:00 AM EDT completed eCW1 ([facility]) COVID-19 dose #2 given elsewhere Unspecified 06/18/2020 11:3 0:00 AM EDT completed eCW1 ([facility]) COVID-19 dose #1 given elsewhere Unspecified 06/18/2020 11:3 0:00 AM EDT completed eCW1 ([facility]) COVID-19 dose #2 given elsewhere Unspecified 06/18/2020 11:3 0:00 AM EDT completed eCW1 ([facility]) COVID-19 dose #1 given elsewhere Unspecified 06/18/2020 11:3 0:00 AM EDT completed eCW1 ([facility]) COVID-19 dose #2 given elsewhere Unspecified 06/18/2020 11:3 0:00 AM EDT completed eCW1 ([facility]) COVID-19 dose #1 given elsewhere Unspecified 06/18/2020 11:3 0:00 AM EDT completed eCW1 ([facility]) COVID-19 dose #2 given elsewhere Unspecified 06/18/2020 11:3 0:00 AM EDT completed eCW1 ([facility]) COVID-19 dose #1 given elsewhere Unspecified 06/18/2020 11:3 0:00 AM EDT completed eCW1 ([facility]) COVID-19 dose #2 given elsewhere Unspecified 06/18/2020 11:3 0:00 AM EDT completed eCW1 ([facility]) COVID-19 dose #1 given elsewhere Unspecified 06/18/2020 11:3 0:00 AM EDT completed eCW1 ([facility]) COVID-19 dose #2 given elsewhere Unspecified 06/18/2020 11:3 0:00 AM EDT completed eCW1 ([facility]) COVID-19 dose #1 given elsewhere Unspecified 06/18/2020 11:3 0:00 AM EDT completed eCW1 ([facility]) COVID-19 dose #2 given elsewhere Unspecified 06/18/2020 11:3 0:00 AM EDT completed eCW1 ([facility]) COVID-19, mRNA, LNP-S, PF, 100 mcg/0.5 mL dose 06/03/2020 01 :43:52 PM EDT completed 10.5 mL IESHA ([facility]) COVID-19 VACCINE Moderna 06/03/2020 12:00:00 AM EDT completed NYSIIS Vaccine Series Complete: YESThis Data wa s Submitted to [facility] Via [employer]. COVID-19, mRNA, LNP-S, PF, 100 mcg/0.5 mL dose 05/08/2020 05 :41:16 PM EST completed .5 mL IESHA ([facility]) COVID-19, mRNA, LNP-S, PF, 100 mcg/0.5 mL dose 05/08/2020 05 :41:16 PM EST completed .5 mL IESHA ([facility]) Medications Medication Brand Name Start Date Product Form Dose Route Admi nistrative Instructions Pharmacy Instructions Status Indications Reaction Description Data Source(s) 600 mg(1,500mg) -200 unit 01/03/2021 12:00:00 AM EDT tablet 90 TAKE ONE TABLET BY MOUTH EVERY DAY WITH A MEAL TAKE ONE TABLET BY MOUTH EVERY DAY WITH A MEAL SOLD: 01/04/2021 [facility] 1,000 mg 12/20/2020 12:00:00 AM EDT tablet 180 TAKE ONE TABLET BY MOUTH TWICE A DAY WITH MEALS TAKE ONE TABLET BY MOUTH TWICE A DAY WITH MEALS SOLD: 12/22/2020 [facility] atorvastatin 10 MG Oral Tablet ATORVASTATIN CALCIUM 10/29/2020 1 2:00:00 AM EDT tablet 90 TAKE ONE TABLET BY MOUTH EVERY D AY TAKE ONE TABLET BY MOUTH EVERY DAY SOLD: 10/30/2020 [facility] 100 mg 10/29/2020 12:00:00 AM EDT tablet 90 TAKE ONE TABLET BY MOUTH EVERY DAY TAKE ONE TABLET BY MOUTH EVERY DAY SOLD: 10/30/2020 [facility] Acyclovir 400 MG Oral Tablet ACYCLOVIR 09/18/2020 12:00:00 AM EDT tabl et 180 TAKE ONE TABLET BY MOUTH TWICE A DAY TAKE ONE TABLET BY MOUTH TWICE A DAY SOLD: 09/21/2020 [facility] Levothyroxine Sodium 0.112 MG Oral Table t Levothyroxine Sodium 112 MCG Oral Tablet (SYNTHROID) Levothyroxine Sodium 112 MCG Oral Tablet (SYNTHROID) 09/18/2020 12:00:00 AM EDT active TAKE ONE TABLET BY MOUTH EVERY MORNING ON AN EMPTY STOMACH [facility] Acyclovir 400 MG Oral Tablet ACYCLOVIR 09/18/2020 12:00:00 AM EDT tabl et 180 TAKE ONE TABLET BY MOUTH TWICE A DAY TAKE ONE TABLET BY MOUTH TWICE A DAY SOLD: 01/04/2021 [facility] 112 mcg 09/18/2020 12:00:00 AM EDT tablet 90 TAKE ONE TABLET BY MOUTH EVERY MORNING ON AN EMPTY STOMACH TAKE ONE TABLET BY MOUTH EVERY MORNING O N AN EMPTY STOMACH SOLD: 12/22/2020 [facility] 112 mcg 09/18/2020 12:00:00 AM EDT tablet 90 TAKE ONE TABLET BY MOUTH EVERY MORNING ON AN EMPTY STOMACH TAKE ONE TABLET BY MOUTH EVERY MORNING O N AN EMPTY STOMACH SOLD: 09/21/2020 [facility] 600 mg(1,500mg) -200 unit 09/17/2020 12:00:00 AM EDT tablet 90 TAKE ONE TABLET BY MOUTH EVERY DAY WITH MEAL TAKE ONE TABLET BY MOUTH EVERY DAY WITH MEAL SOLD: 09/21/2020 [facility] Metformin hydrochloride 1000 MG Oral Tab let metFORMIN HCl 1000 MG Oral Tablet (GLUCOPHAGE) metFORMIN HCl 1000 MG Oral Tablet (GLUCOPHAGE) 021 12:00:00 AM EDT active TAKE ONE TABLET B Y MOUTH TWICE A DAY WITH A MEAL [facility] 1,000 mg 08/19/2020 12:00:00 AM EDT tablet 180 TAKE ONE TABLET BY MOUTH TWICE A DAY WITH A MEAL TAKE ONE TABLET BY MOUTH TWICE A DAY WITH A MEAL SOLD: 08/24/2020 [facility] Acyclovir 400 MG Oral Tablet ACYCLOVIR 07/29/2020 12:00:00 AM EDT tabl et 60 TAKE ONE TABLET BY MOUTH TWICE A DAY TAKE ONE TABLET BY MOUTH TWICE A DAY SOLD: 08/08/2020 [facility] Acyclovir 400 MG Oral Tablet Acyclovir 400 MG Oral Tab let (ZOVIRAX) Acyclovir 400 MG Oral Tablet (ZOVIRAX) 07/29/2020 12:00:00 AM EDT active [facility] Calcium Carbonate 1500 MG / Cholecalcife rol 200 UNT Oral Tablet Calcium-Vitamin D3 600-200 MG-UNIT Oral Tablet Calcium-Vitamin D3 600-200 MG-UNIT Oral Tablet 07/06/2020 12:00:00 AM EDT active TAKE ONE TABLET BY MOUTH EVERY DAY WITH A MEAL [facility] Metronidazole 500 MG Oral Tablet METRONIDAZOLE 06/24/2020 12:0 0:00 AM EDT tablet 29 TAKE 1 TABLET [500MG] BY MOUTH E VERY 8 HOURS TAKE 1 TABLET [500MG] BY MOUTH EVERY 8 HOURS SOLD: 06/24/2020 [facility] 500 mg 06/24/2020 12:00:00 AM EDT tablet 19 TAKE 1 TABLET [500MG] BY MOUTH TWO TIMES A DAY TAKE 1 TABLET [500MG] BY MOUTH TWO TIMES A DAY SOLD: 021 [facility] Cholecalciferol 1000 UNT Oral Capsule Vitamin D3 25 MC G (1000 UT) Vitamin D3 25 MCG (1000 UT) 06/18/2020 12:00:00 AM EDT 1.0 {capsule} active Vitamin D3 25 MCG (1000 UT) [facility] ([facility] Cholecalciferol 1000 UNT Oral Capsule Vitamin D3 25 MC G (1000 UT) Vitamin D3 25 MCG (1000 UT) 06/18/2020 12:00:00 AM EDT 1.0 {capsule} active Vitamin D3 25 MCG (1000 UT) [facility] ([facility]) 112 mcg 06/05/2020 12:00:00 AM EDT tablet 90 TAKE ONE TABLET BY MOUTH EVERY MORNING ON AN EMPTY STOMACH TAKE ONE TABLET BY MOUTH EVERY MORNING O N AN EMPTY STOMACH SOLD: 06/09/2020 [facility] Acyclovir 400 MG Oral Tablet ACYCLOVIR 05/13/2020 12:00:00 AM EST tabl et 60 TAKE ONE TABLET BY MOUTH TWICE A DAY TAKE ONE TABLET BY MOUTH TWICE A DAY SOLD: 06/26/2020 [facility] Acyclovir 400 MG Oral Tablet ACYCLOVIR 05/13/2020 12:00:00 AM EST tabl et 60 TAKE ONE TABLET BY MOUTH TWICE A DAY TAKE ONE TABLET BY MOUTH TWICE A DAY SOLD: 05/23/2020 [facility] 100 mg 05/07/2020 12:00:00 AM EST tablet 30 TAKE ONE TABLET BY MOUTH EVERY DAY TAKE ONE TABLET BY MOUTH EVERY DAY SOLD: 05/09/2020 [facility] 100 mg 05/07/2020 12:00:00 AM EST tablet 30 TAKE ONE TABLET BY MOUTH EVERY DAY TAKE ONE TABLET BY MOUTH EVERY DAY SOLD: 08/08/2020 [facility] sitagliptin 100 MG Oral Tablet [Januvia] Januvia 100 M G Oral Tablet Januvia 100 MG Oral Tablet 05/07/2020 12:00:00 AM EST 100 mg Oral act pratik Take 100 mg by mouth daily [facility] atorvastatin 10 MG Oral Tablet Atorvastatin Calcium 10 MG Oral Tablet (LIPITOR) Atorvastatin Calcium 10 MG Oral Tablet (LIPITOR) 05/07/2020 12:00:00 AM EST 10 mg Oral active Take 10 mg by mouth [facility] 600 mg(1,500mg) -200 unit 04/08/2020 12:00:00 AM EST tablet 30 TAKE ONE TABLET BY MOUTH EVERY DAY WITH A MEAL TAKE ONE TABLET BY MOUTH EVERY DAY WITH A MEAL SOLD: 06/09/2020 [facility] 600 mg(1,500mg) -200 unit 04/08/2020 12:00:00 AM EST tablet 30 TAKE ONE TABLET BY MOUTH EVERY DAY WITH A MEAL TAKE ONE TABLET BY MOUTH EVERY DAY WITH A MEAL SOLD: 04/09/2020 [facility] 600 mg(1,500mg) -200 unit 04/08/2020 12:00:00 AM EST tablet 30 TAKE ONE TABLET BY MOUTH EVERY DAY WITH A MEAL TAKE ONE TABLET BY MOUTH EVERY DAY WITH A MEAL SOLD: 08/24/2020 [facility] 600 mg(1,500mg) -200 unit 04/08/2020 12:00:00 AM EST tablet 30 TAKE ONE TABLET BY MOUTH EVERY DAY WITH A MEAL TAKE ONE TABLET BY MOUTH EVERY DAY WITH A MEAL SOLD: 07/24/2020 [facility] 600 mg(1,500mg) -200 unit 04/08/2020 12:00:00 AM EST tablet 30 TAKE ONE TABLET BY MOUTH EVERY DAY WITH A MEAL TAKE ONE TABLET BY MOUTH EVERY DAY WITH A MEAL SOLD: 05/09/2020 [facility] Metformin hydrochloride 1000 MG Oral Tablet 1,000 mg METFORM IN HCL 04/04/2020 12:00:00 AM EST tablet 180 TAKE ONE TABLET BY MOUTH TWICE A DAY WITH A MEAL TAKE ONE TABLET BY MOUTH TWICE A DAY WITH A MEAL SOLD: 04/09/2020 [facility] BLOOD SUGAR DIAGNOSTIC 03/04/2020 12:00:00 AM EST strip 100 USE DIRECTED DAILY WITH FASTING & NEEDED USE DIRECTED DAILY WITH FASTING & NEEDED SOLD: 03/09/2020 [facility] CarolineTolisa Bonnerio In Vitro Strip 20710-603-95 03/04/2020 12:00:00 AM EST active USE DIRECTED DAILY WITH FASTI NG NEEDED [facility] Carolinelisa Delica Plus [id number] 22304-320-89 03/03/2020 12:00:00 AM EST active USE DIRECTED DAILY AND NEEDED [facility] atorvastatin 10 MG Oral Tablet ATORVASTATIN CALCIUM 03/01/2020 1 2:00:00 AM EST tablet 30 TAKE ONE TABLET BY MOUTH EVERY D AY TAKE ONE TABLET BY MOUTH EVERY DAY SOLD: 04/09/2020 [facility] atorvastatin 10 MG Oral Tablet ATORVASTATIN CALCIUM 03/01/2020 1 2:00:00 AM EST tablet 30 TAKE ONE TABLET BY MOUTH EVERY D AY TAKE ONE TABLET BY MOUTH EVERY DAY SOLD: 03/09/2020 [facility] atorvastatin 10 MG Oral Tablet ATORVASTATIN CALCIUM 03/01/2020 1 2:00:00 AM EST tablet 30 TAKE ONE TABLET BY MOUTH EVERY D AY TAKE ONE TABLET BY MOUTH EVERY DAY SOLD: 08/08/2020 [facility] atorvastatin 10 MG Oral Tablet ATORVASTATIN CALCIUM 03/01/2020 1 2:00:00 AM EST tablet 30 TAKE ONE TABLET BY MOUTH EVERY D AY TAKE ONE TABLET BY MOUTH EVERY DAY SOLD: 05/09/2020 [facility] Meclizine Hydrochloride 12.5 MG Oral Tablet Meclizine HCl 12.5 MG Meclizine HCl 12.5 MG 01/28/2020 12:00:00 AM EST 1.0 {tablet} susp ended Meclizine HCl 12.5 MG eCW1 ([facility]) Meclizine Hydrochloride 12.5 MG Oral Tablet Meclizine HCl 12.5 MG Meclizine HCl 12.5 MG 01/28/2020 12:00:00 AM EST 1.0 {tablet} acti ve Meclizine HCl 12.5 MG eCW1 ([facility]) Meclizine Hydrochloride 12.5 MG Oral Tablet Meclizine HCl 12.5 MG Meclizine HCl 12.5 MG 01/28/2020 12:00:00 AM EST 1.0 {tablet} susp ended Meclizine HCl 12.5 MG eCW1 ([facility]) 112 mcg 12/07/2019 12:00:00 AM EDT tablet 90 TAKE ONE TABLET BY MOUTH EVERY MORNING ON AN EMPTY STOMACH TAKE ONE TABLET BY MOUTH EVERY MORNING O N AN EMPTY STOMACH SOLD: 03/09/2020 [facility] 112 mcg 12/07/2019 12:00:00 AM EDT tablet 90 TAKE ONE TABLET BY MOUTH EVERY MORNING ON AN EMPTY STOMACH TAKE ONE TABLET BY MOUTH EVERY MORNING O N AN EMPTY STOMACH SOLD: 12/07/2019 [facility] CALCIUM-VITAMIN D PO 11/26/2019 12:00:00 AM EDT aborted TAKE ONE TABLET BY MOUTH EVERY DAY WITH [facility] Acyclovir 400 MG Oral Tablet ACYCLOVIR 10/04/2019 12:00:00 AM EDT tabl et 60 TAKE ONE TABLET BY MOUTH TWICE A DAY TAKE ONE TABLET BY MOUTH TWICE A DAY SOLD: 12/17/2019 [facility] Acyclovir 400 MG Oral Tablet ACYCLOVIR 10/04/2019 12:00:00 AM EDT tabl et 60 TAKE ONE TABLET BY MOUTH TWICE A DAY TAKE ONE TABLET BY MOUTH TWICE A DAY SOLD: 11/18/2019 [facility] Acyclovir 400 MG Oral Tablet ACYCLOVIR 10/04/2019 12:00:00 AM EDT tabl et 60 TAKE ONE TABLET BY MOUTH TWICE A DAY TAKE ONE TABLET BY MOUTH TWICE A DAY SOLD: 03/09/2020 [facility] Acyclovir 400 MG Oral Tablet ACYCLOVIR 10/04/2019 12:00:00 AM EDT tabl et 60 TAKE ONE TABLET BY MOUTH TWICE A DAY TAKE ONE TABLET BY MOUTH TWICE A DAY SOLD: 04/09/2020 [facility] Acyclovir 400 MG Oral Tablet ACYCLOVIR 10/04/2019 12:00:00 AM EDT tabl et 60 TAKE ONE TABLET BY MOUTH TWICE A DAY TAKE ONE TABLET BY MOUTH TWICE A DAY SOLD: 02/02/2020 [facility] atorvastatin 10 MG Oral Tablet ATORVASTATIN CALCIUM 10/01/2019 1 2:00:00 AM EDT tablet 30 TAKE 1 TABLET BY MOUTH ONCE A DAY TAKE 1 TABLET BY MOUTH ONCE A DAY SOLD: 02/02/2020 [facility] atorvastatin 10 MG Oral Tablet ATORVASTATIN CALCIUM 10/01/2019 1 2:00:00 AM EDT tablet 30 TAKE 1 TABLET BY MOUTH ONCE A DAY TAKE 1 TABLET BY MOUTH ONCE A DAY SOLD: 12/17/2019 [facility] atorvastatin 10 MG Oral Tablet ATORVASTATIN CALCIUM 10/01/2019 1 2:00:00 AM EDT tablet 30 TAKE 1 TABLET BY MOUTH ONCE A DAY TAKE 1 TABLET BY MOUTH ONCE A DAY SOLD: 11/18/2019 [facility] 100 mg 09/13/2019 12:00:00 AM EDT tablet 30 TAKE ONE TABLET BY MOUTH EVERY DAY TAKE ONE TABLET BY MOUTH EVERY DAY SOLD: 03/09/2020 [facility] 600 mg(1,500mg) -200 unit 09/13/2019 12:00:00 AM EDT tablet 30 TAKE ONE TABLET BY MOUTH EVERY DAY WITH MEAL TAKE ONE TABLET BY MOUTH EVERY DAY WITH MEAL SOLD: 03/09/2020 [facility] 600 mg(1,500mg) -200 unit 09/13/2019 12:00:00 AM EDT tablet 30 TAKE ONE TABLET BY MOUTH EVERY DAY WITH MEAL TAKE ONE TABLET BY MOUTH EVERY DAY WITH MEAL SOLD: 12/31/2019 [facility] 100 mg 09/13/2019 12:00:00 AM EDT tablet 30 TAKE ONE TABLET BY MOUTH EVERY DAY TAKE ONE TABLET BY MOUTH EVERY DAY SOLD: 11/18/2019 [facility] 100 mg 09/13/2019 12:00:00 AM EDT tablet 30 TAKE ONE TABLET BY MOUTH EVERY DAY TAKE ONE TABLET BY MOUTH EVERY DAY SOLD: 04/09/2020 [facility] 100 mg 09/13/2019 12:00:00 AM EDT tablet 30 TAKE ONE TABLET BY MOUTH EVERY DAY TAKE ONE TABLET BY MOUTH EVERY DAY SOLD: 02/02/2020 [facility] 600 mg(1,500mg) -200 unit 09/13/2019 12:00:00 AM EDT tablet 30 TAKE ONE TABLET BY MOUTH EVERY DAY WITH MEAL TAKE ONE TABLET BY MOUTH EVERY DAY WITH MEAL SOLD: 11/29/2019 [facility] Metformin hydrochloride 1000 MG Oral Tablet 1,000 mg METFORM IN HCL 09/13/2019 12:00:00 AM EDT tablet 180 TAKE ONE TABLET BY MOUTH TWICE A DAY WITH A MEAL TAKE ONE TABLET BY MOUTH TWICE A DAY WITH A MEAL SOLD: 01/08/2020 [facility] 600 mg(1,500mg) -200 unit 09/13/2019 12:00:00 AM EDT tablet 30 TAKE ONE TABLET BY MOUTH EVERY DAY WITH MEAL TAKE ONE TABLET BY MOUTH EVERY DAY WITH MEAL SOLD: 02/02/2020 [facility] 100 mg 09/13/2019 12:00:00 AM EDT tablet 30 TAKE ONE TABLET BY MOUTH EVERY DAY TAKE ONE TABLET BY MOUTH EVERY DAY SOLD: 12/31/2019 [facility] 24 HR Metformin hydrochloride 500 MG Ext ended Release Oral Tablet metFORMIN HCl ER 500 MG Oral Tablet Extended Release 24 Hour (GLUCOPHAGE-XR) metFORMIN HCl ER 500 MG Oral Tablet Extended Release 24 Hour (GLUCOPHAGE-XR) 08/13/2019 12:00:00 AM EDT aborted TAKE 2 TABLETS B Y MOUTH TWO TIMES A DAY [facility] Levothyroxine Sodium 0.125 MG Oral Table t Levothyroxine Sodium 125 MCG Oral Tablet (SYNTHROID) Levothyroxine Sodium 125 MCG Oral Tablet (SYNTHROID) 08/04/2019 12:00:00 AM EDT aborted TAKE ONE TABLET BY MOUTH EVERY MORNING ON AN EMPTY STOMACH [facility] 33 gauge 06/05/2019 12:00:00 AM EDT misc 100 USE DIRECTED DAILY AND NEEDED USE DIRECTED DAILY AND NEEDED SOLD: 03/09/2020 [facility] 33 gauge 06/05/2019 12:00:00 AM EDT misc 100 USE DIRECTED DAILY AND NEEDED USE DIRECTED DAILY AND NEEDED SOLD: 12/07/2019 [facility] BLOOD SUGAR DIAGNOSTIC 12/15/2018 12:00:00 AM EDT strip 25 USE DIRECTED DAILY FASTING AND NEEDED USE DIRECTED DAILY FASTING AND NEEDED SOLD: 12/17/2019 [facility] BLOOD SUGAR DIAGNOSTIC 12/15/2018 12:00:00 AM EDT strip 25 USE DIRECTED DAILY FASTING AND NEEDED USE DIRECTED DAILY FASTING AND NEEDED SOLD: 11/22/2019 [facility] Insurance Providers Payer name Policy type / Coverage type Policy ID Covered constitution party ID Covered constitution party's relationship to moreira Policy Moreira Plan Information [facility] COMMUNITY PLAN [facility] [place] [id number] MVP [id number] Olya [id number] MVP [id number] self [id number] UMR U [id number] UMR U [id number] Self [id number] MVP [id number] [id number] SP [id number] [employer] [facility] [id number] SP [id number] MVP [id number] [id number] SP [id number] [employer] C[employer] O [id number] S [id number] SELF PAY ONLY - [id number] SP [id number] ANSI-Medicaid [id number] ANSI-Medicaid [id number] ANSI-Medicaid [id number] ANSI-Medicaid [id number] ANSI-Medicaid [id number] ANSI-Medicaid [id number] ANSI-Medicaid [id number] ANSI-Medicaid [id number] ANSI-Medicaid [id number] ANSI-Medicaid [id number] [employer] [place] 020/520 [id number] SP [id number] [employer] [employer] B [id number] S W [id number] [place] Commercial [id number] Self W [id number] [facility] COMMUNITY PLAN [id number] [id number] SP [id number] [employer] [place] [facility] [id number] SP [id number] [facility](MCAID) O [id number] S [id number] [facility] INS O [id number] S [id number] [facility] O [id number] S [id number] [facility] COMMUNITY [facility] [id number] SP [id number] [facility] [id number] SP [id number] CSP [facility] [id number] SP [id number] SELF PAY UNAVAILABLE SP UNAVAILA BLE [facility] [id number] SP [id number] 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 [id number] SP [id number] [facility] [employer]CTION [id number] SP [id number] [facility] [id number] SP [id number] [facility] [id number] SP [id number] [id number] SP [id number] MEDICAID [id number] SP [id number] R O [id number] S [id number] Problems, Conditions, and Diagnoses Code Display Name Description Problem Type Effective Dates Data Source(s) S62.614P Displaced fracture of proxim al phalanx of right ring finger, subsequent encounter for fracture with malunion Displaced fracture of proximal phalanx o f right ring finger, subsequent encounter for fracture with malunion Diagnosis 07/30/2020 03:38:51 PM EDT [facility] M85.80 [id number] Low bone density for age Problem 06/18/2020 12:00:00 AM EDT eCW1 ([facility]) G47.00 [id number] Insomnia, unspecified type Problem 0 12:00:00 AM EDT eCW1 ([facility]) [id number] Pure hypercholesterolemia Pure hypercholesterolemia Pr oblem 12/14/2019 12:00:00 AM EDT MEDENT ([facility]) Surgeries/Procedures Procedure Description Date Indications Data Source(s) Medication: Triple Antibiotic packets (neomycin/bacitr acin/polymyxinb) ointment 10/30/2020 12:00:00 AM EDT eC ([facility]) Med: Derm 1% Lidocaine with Epinephrine Injection Intr adermally to marked areas 10/30/2020 12:00:00 AM EDT eCW1 ([facility]) RADEX FINGR MINIMUM 2 VIEWS 07/15/2020 12:00:00 AM EDT [facility] ([facility] ) RADEX ANKLE COMPLETE MINIMUM 3 VIEWS 06/26/2020 12:00: 00 AM EDT [facility] ([facility] ) RADEX FINGR MINIMUM 2 VIEWS 06/25/2020 12:00:00 AM EDT [facility] ([facility] ) RADEX FINGR MINIMUM 2 VIEWS 06/03/2020 12:00:00 AM EDT [facility] ([facility] ) THERAPEUTIC PX 1/> AREAS EACH 15 MIN EXERCISES 12:00:00 AM EDT [facility] ([facility] ) THERAPEUTIC PX 1/> AREAS EACH 15 MIN EXERCISES 021 12:00:00 AM EDT [facility] ([facility] ) RADEX FINGR MINIMUM 2 VIEWS 06/03/2020 12:00:00 AM EDT [facility] ([facility] ) RADEX ANKLE COMPLETE MINIMUM 3 VIEWS 05/29/2020 12:00: 00 AM EDT [facility] ([facility] ) THERAPEUTIC PX 1/> AREAS EACH 15 MIN EXERCISES 12:00:00 AM EDT [facility] ([facility] ) THERAPEUTIC PX 1/> AREAS EACH 15 MIN EXERCISES 12:00:00 AM EDT [facility] ([facility] ) CLTX PHLNGL FX PROX/MIDDLE PX/F/T W/O MANJ EA 05/27/19 12:00:00 AM EDT [facility] ([facility] ) THERAPEUTIC PX 1/> AREAS EACH 15 MIN EXERCISES 12:00:00 AM EST [facility] ([facility] ) THERAPEUTIC PX 1/> AREAS EACH 15 MIN EXERCISES 12:00:00 AM EST [facility] ([facility] ) THERAPEUTIC PX 1/> AREAS EACH 15 MIN EXERCISES 12:00:00 AM EST [facility] ([facility] ) RADEX ANKLE COMPLETE MINIMUM 3 VIEWS 05/14/2020 12:00: 00 AM EST [facility] ([facility] ) Physical Therapy Eval - Low Complexity 05/06/2020 12:0 0:00 AM EST [facility] ([facility] ) RADEX ANKLE COMPLETE MINIMUM 3 VIEWS 04/23/2020 12:00: 00 AM EST [facility] ([facility] ) RADEX ANKLE COMPLETE MINIMUM 3 VIEWS 04/09/2020 12:00: 00 AM EST [facility] ([facility] ) FX Lateral Malleolus (Distal Fibula) W/O Manipulation 03/17/2020 12:00:00 AM EST [facility] ([facility] ) RADEX ANKLE COMPLETE MINIMUM 3 VIEWS 03/17/2020 12:00: 00 AM EST [facility] ([facility] ) RADEX TOE MINIMUM 2 VIEWS 01/10/2020 12:00:00 AM EDT [facility] ([facility] ) RADEX TOE MINIMUM 2 VIEWS 12/26/2019 12:00:00 AM EDT [facility] ([facility] ) FX Phalanx Excl GR Toe W/O Manipulation 12/13/2019 12: 00:00 AM EDT [facility] ([facility] ) Results ID Date Data Source [id number] 09/24/2020 01:42:25 PM EDT [facility] XR FINGERS [id number] RESULTInterpreted by:Kayleen J Carlos, MDClinical history: Right ring finger fractureViews: 4 views right ring fingerIndication: Check fracture right ring fingerFindings: Patient has a mild malunion of the right ring finger proximal phalanx. Is now completely healed. No evidence of injury to the middle phalanx or distal phalanx. All joints appear well aligned.Impression: Mild malunion of right ring finger proximal phalanxThis document has been electronically signed by Kayleen Cifuentes MD on 09/24/2020 1:40 PM Name Value Range Interpretation Code Description Data Trupti rce(s) Supporting Document(s) ID Date Data Source [id number] 09/24/2020 01:39:40 PM EDT [facility] Name Value Range Interpretation Code Description Data Trupti rce(s) Supporting Document(s) Progress Note [facility] LFYFCg1oEsCIFrQu24/EKSfrLIIkf6FqAMwyWWj9COwjCRBpH0CcFLP8cK0tNCO9QOjJCsWcWwFeQvB0 lbm [file] [id number]== ID Date Data Source [id number] 07/30/2020 03:39:06 PM EDT [facility] Name Value Range Interpretation Code Description Data Trupti rce(s) Supporting Document(s) Progress Note [facility] NZCNLb5fUrPTEmJy61/EBVpfMREbs3SpRHwkLWv8NDdzDGUfQ2YkKPB8cN1pJBU3IInZWkCxPkUtZCR9 lbm [file] ICAgICAgICAgICAgICAgICAgICAgICAgICAgICAgICAgICAgICAgICAgICAgICAgICAgICAgICAgICAg ICAgICAgICAgICAgICAgICAgICAgICAgICAgICANCiAgICAgICAgICAgICAgICAgICAgICAgICAgICAg ICAgICAgICAgICAgICAgICAgICAgICAgICAgICAgIC AgICAgICAgICAgICAgICAgICAgICAgICAgICAgICAgICAgICAgICANCiAgICAgICAgICAgICAgICAgIC AgICAgICAgICAgICAgICAgICAgICAgICAgICAgICAgICAgICAgICAgICAgICAgICAgICAgICAgICAgIC AgICAgICAgICAgICAgICAgICAgICANCiAgICAgICAg ICAgICAgICAgICAgICAgICAgICAgICAgICAgICAgICAgICAgICAgICAgICAgICAgICAgICAgICAgICAg ICAgICAgICAgICAgICAgICAgICAgICAgICAgICAgICANCiAgICAgICAgICAgICAgICAgICAgICAgICAg ICAgICAgICAgICAgICAgICAgICAgICAgICAgICAgIC AgICAgICAgICAgICAgICAgICAgICAgICAgICAgICAgICAgICAgICAgICANCiAgICAgICAgICAgICAgIC AgICAgICAgICAgICAgICAgICAgICAgICAgICAgICAgICAgICAgICAgICAgICAgICAgICAgICAgICAgIC AgICAgICAgICAgICAgICAgICAgICAgICANCiAgICAg ICAgICAgICAgICAgICAgICAgICAgICAgICAgICAgICAgICAgICAgICAgICAgICAgICAgICAgICAgICAg ICAgICAgICAgICAgICAgICAgICAgICAgICAgICAgICAgICANCiAgICAgICAgICAgICAgICAgICAgICAg ICAgICAgICAgICAgICAgICAgICAgICAgICAgICAgIC AgICAgICAgICAgICAgICAgICAgICAgICAgICAgICAgICAgICAgICAgICAgICANCiAgICAgICAgICAgIC AgICAgICAgICAgICAgICAgICAgICAgICAgICAgICAgICAgICAgICAgICAgICAgICAgICAgICAgICAgIC AgICAgICAgICAgICAgICAgICAgICAgICAgICANCiAg ICAgICAgICAgICAgICAgICAgICAgICAgICAgICAgICAgICAgICAgICAgICAgICAgICAgICAgICAgICAg ICAgICAgICAgICAgICAgICAgICAgICAgICAgICAgICAgICAgICANCjw/pULbK8topMWbqvN7M2phUo2B Zb6JQK1oa2GkBGUsLByoxaYnJjtHAvYiRQFkEmgKOi u7HYewVN6XgZHrZ6SxM9IvGSscSJ3WDCZeJJXrkEWkYMSlUIXnZwY2QNOaFJimJN5CjBWmVCdbSDQbHT SsJD4MMOTzG339skNoWO8ZTt1CXlVuZF8kmo0LCjJvTLOrBxuOLmg8SDxgOX9InOHsgCMfTwDcYMIZAn JzO0ivu0VsHmEdLRWJUEncDU4Ll3FblCPxFYo+Pg0K CW8ge4YmJCzyPsJyCN3hks9KOJdRLdLoF4TrzYoyXRQfz7mbFTOgMW2bmNCjRSG3JLUaqCHcJJwxILZp hJV3WMELAQEblZC6PrL7FrGgYcScUSY7UjChHW0gXGkdRC3OPTW8TSqdTVGwZEJsE4nWExGmUOMbWHDd hGagKQ2ZHhJqZ8YzieVseDJuVxJnNUJQNd6+DQplbm UdDfmJFzV2WNPei7GfCOx8HO0ZTKInDPxeNO9ZUQRpmK2cWOqnNE3SRlNdWGZwBYJAXbJhN82mgJEbQM h9V0CaUuKzZZCqIxmgNEYeGJzgAaOsJOXsYeCrDMemJJ0+ID4+LBvzYS0JEYkkzaAxCOVsNn7NUVRoCE LkXQ8yGVYtEEWmT2F7bSwbIKUUUqXrH1xhqpurOM5q NRMoB956rXcsdyHtNNPrZCQgRi5JGRJiJQT7DCFkwLUoMuAkEGPSJUalIS8LbMWiSZW7gD1zGWgxPOIl BYHcQ3aUAhKphUwdTI59dYcwubUbeHFkBDm+Ac3RYI3au8XrUUg5wdLzAQwtQBM6QBavFDKuEGDuOZUk SBW8CIW6IGWMOtYnYUMeCZFyUUglCLPfKMXski3FIU XrWWRiFIRdXZDzYWUlAUTaOVkjTEAzYXSdNhNgQPTjOMYxRR0ACnSlHGShLPFoTZnrGDJmKWOibr5XCC PwLIIuDvP4YVTjGGIeTIZnAZenTBXbHKEoAxBnVHCwQRLoTF4RJxQjEQTwFAQbPGXzJXByLCIiti7HGP OxBLMpVBTaGuEsGLQuLKVbIEmyJWBlTEZ1Kev7QZVh MSDqGC9EIcDiRYXrNAY7UJIwJZKuIKFxpi5BCSOqOMEiYNb8AlKsQPOyMZZzMYbcDHUiDFM0GYM0BKAz OAGgGF5UQeTyUTEbPKfkKSzmSJPuODQovf8HQXFfDVDcQtexEYRgVQJzGQNsMQsuTSLcNZB8GCG4DPXw PFHzZB6JYjXkXLWvYQftZTRbFFTpUGGeps4JTZHwIU MjAUPrAGWoLPNyNDGdJPrqNYPzPUI1CiF3JMIdCQMaWN5IAzZrFGNoGZt1RrPeOSZjEEDhjl0YETSaEP EjZQL9FcZgGELkGXErGKzvJRGpMNJvHYAaBZMfWVZaXJ3BPbWuPGVhEgW3PHQlTPOmHYLmkp7FXATePN AyMTUyMSAwMDAwMCBuDQowMDAwMDIxNjcwIDAwMDAw JS8XSmNtUYmdFCRMQen2DLqjR5n2EFTkNR8SH5Tbs4HiLiGkVXMOFVhbRH1ulbHjEPYpAy7JM3bHImya MpajKHWeLNZqZCBxPdH5HTdbExs8XMKkGjYeFlwxOO0sECZjDAEdTUJ5SCAiY8FeGmP9TmPxEXT9IkAd S9D8CEAvMzEtMF2GMn9XQjM1FPZ9cGYiGa0QTfC4UEKEYjLhGW3SXZb= Procedure Social History Code Duration Value Status Description Data Source(s ) Smoking 11/21/2020 12:00:00 AM EDT Former Smoker completed Former Smoker eCW1 ([facility]) Smoking 11/21/2020 12:00:00 AM EDT Former Smoker completed Former Smoker eCW1 ([facility]) Smoking 11/21/2020 12:00:00 AM EDT Former Smoker completed Former Smoker eCW1 ([facility]) Smoking 10/30/2020 12:00:00 AM EDT Former Smoker completed Former Smoker eCW1 ([facility]) Alcohol intake 09/24/2020 12:00:00 AM EDT Current drinker of al cohol (finding) completed Current drinker of alcohol (finding) [facility] Tobacco use and exposure 09/24/2020 12:00:00 AM EDT Never used co mpleted Never used [facility] Smoking 09/24/2020 12:00:00 AM EDT Former smoker completed Former smoker [facility] Smoking 09/17/2020 12:00:00 AM EDT Former Smoker completed Former Smoker eCW1 ([facility]) Smoking 09/17/2020 12:00:00 AM EDT Former Smoker completed Former Smoker eCW1 ([facility]) Smoking 09/17/2020 12:00:00 AM EDT Former Smoker completed Former Smoker eCW1 ([facility]) Smoking 07/21/2020 12:00:00 AM EDT Former Smoker completed Former Smoker eCW1 ([facility]) Smoking 07/21/2020 12:00:00 AM EDT Former Smoker completed Former Smoker eCW1 ([facility]) Smoking 06/18/2020 12:00:00 AM EDT Former Smoker completed Former Smoker eCW1 ([facility]) Smoking 06/18/2020 12:00:00 AM EDT Former Smoker completed Former Smoker eCW1 ([facility]) Smoking 01/31/2020 12:00:00 AM EST Former smoker completed Former smoker [facility] ([facility]) Smoking 01/28/2020 12:00:00 AM EST Former Smoker completed Former Smoker eCW1 ([facility]) Smoking 12/20/2019 12:00:00 AM EDT Former Smoker completed Former Smoker eCW1 ([facility]) Vital Signs ID Date Data Source UNK Name Value Range Interpretation Code Description Data Source(s) Body mass index (BMI) [Ratio] 25.69 kg/m2 25.69 kg/m2 eCW1 ([facility]) Body weight 169 [lb_av] 169 [lb_av] eCW1 ([facility]) Heart rate 80 /min 80 /min eCW1 ([facility]) Respiratory rate 20 /min 20 /min eCW1 ([facility]) Body height 68 [in_i] 68 [in_i] W1 ([facility]) Body temperature 97.3 [degF] 97.3 [degF] eCW1 ( [facility]) Systolic blood pressure 124 mm[Hg] 124 mm[Hg] e CW1 ([facility]) Diastolic blood pressure 80 mm[Hg] 80 mm[Hg] eCW1 ([facility]) Body weight 171 [lb_av] 171 [lb_av] eCW1 ([facility]) Body weight 77.57 kg 77.57 kg eCW1 ([facility]) Body height 68 [in_i] 68 [in_i] eCW1 ([facility]) Body mass index (BMI) [Ratio] 26.00 kg/m2 26.00 kg/m2 eCW1 ([facility]) Heart rate 107 /min 107 /min eCW1 ([facility]) Respiratory rate 18 /min 18 /min eCW1 ([facility]) Body temperature 96.2 [degF] 96.2 [degF] eCW1 ( [facility]) Systolic blood pressure 130 mm[Hg] 130 mm[Hg] e CW1 ([facility]) Diastolic blood pressure 80 mm[Hg] 80 mm[Hg] eCW1 ([facility]) Heart rate 99 /min 99 /min eCW1 ([facility]) Body weight 173 [lb_av] 173 [lb_av] eCW1 ([facility]) Body height 68 [in_i] 68 [in_i] eCW1 ([facility]) Body mass index (BMI) [Ratio] 26.30 kg/m2 26.30 kg/m2 eCW1 ([facility]) Respiratory rate 18 /min 18 /min eCW1 ([facility]) Body temperature 97.1 [degF] 97.1 [degF] eCW1 ( [facility]) Systolic blood pressure 124 mm[Hg] 124 mm[Hg] e CW1 ([facility]) Diastolic blood pressure 80 mm[Hg] 80 mm[Hg] eCW1 ([facility]) Body weight 173.8 [lb_av] 173.8 [lb_av] eCW1 ([facility]) Body weight 78.83 kg 78.83 kg eCW1 ([facility]) Body height 68 [in_i] 68 [in_i] eCW1 ([facility]) Body mass index (BMI) [Ratio] 26.42 kg/m2 26.42 kg/m2 eCW1 ([facility]) Systolic blood pressure 126 mm[Hg] 126 mm[Hg] e CW1 ([facility]) Diastolic blood pressure 82 mm[Hg] 82 mm[Hg] eCW1 ([facility]) Body weight 177 [lb_av] 177 [lb_av] eCW1 ([facility]) Body height 68 [in_i] 68 [in_i] eCW1 ([facility]) Body mass index (BMI) [Ratio] 26.91 kg/m2 26.91 kg/m2 eCW1 ([facility]) Heart rate 84 /min 84 /min eCW1 ([facility]) Respiratory rate 20 /min 20 /min eCW1 ([facility]) Body temperature 98.3 [degF] 98.3 [degF] eCW1 ( [facility]) Systolic blood pressure 122 mm[Hg] 122 mm[Hg] e CW1 ([facility]) Diastolic blood pressure 74 mm[Hg] 74 mm[Hg] eCW1 ([facility]) Body height 66 [in_i] 66 [in_i] MED[facility] ([facility] ) 5'6" Body temperature 97.1 [degF] 97.1 [degF] [facility] ([facility] ) Body mass index (BMI) [Ratio] 27.4 kg/m2 27.4 k g/m2 [facility] ([facility] ) Body weight 170.00 [lb_av] 170.00 [lb_av] MEDEN T ([facility] ) Body temperature 96.4 [degF] 96.4 [degF] [facility] ([facility] ) Body temperature 96.7 [degF] 96.7 [degF] [facility] ([facility] ) Body height 66 [in_i] 66 [in_i] [facility] ([facility] ) 5'6" Body weight 176.00 [lb_av] 176.00 [lb_av] MEDEN T ([facility] ) Body mass index (BMI) [Ratio] 28.4 kg/m2 28.4 k g/m2 [facility] ([facility]) Body weight 177 [lb_av] 177 [lb_av] eCW1 ([facility]) Body height 68 [in_i] 68 [in_i] eCW1 ([facility]) Body mass index (BMI) [Ratio] 26.91 kg/m2 26.91 kg/m2 eCW1 ([facility]) Heart rate 109 /min 109 /min eCW1 ([facility]) Respiratory rate 18 /min 18 /min eCW1 ([facility]) Body temperature 97 [degF] 97 [degF] eCW1 ([facility]) Systolic blood pressure 118 mm[Hg] 118 mm[Hg] e CW1 ([facility]) Diastolic blood pressure 82 mm[Hg] 82 mm[Hg] eCW1 ([facility]) Body temperature 97.1 [degF] 97.1 [degF] [facility] ([facility] ) Body mass index (BMI) [Ratio] 27.61 kg/m2 27.61 kg/m2 eCW1 ([facility]) Heart rate 98 /min 98 /min eCW1 ([facility]) Respiratory rate 17 /min 17 /min eCW1 ([facility]) Body temperature 97.9 [degF] 97.9 [degF] eCW1 ( [facility]) Systolic blood pressure 122 mm[Hg] 122 mm[Hg] e CW1 ([facility]) Diastolic blood pressure 72 mm[Hg] 72 mm[Hg] eCW1 ([facility]) Body weight 181.6 [lb_av] 181.6 [lb_av] eCW1 ([facility]) Body height 68 [in_i] 68 [in_i] eCW1 ([facility]) Body temperature 96.6 [degF] 96.6 [degF] [facility] ([facility]) Body height 68 [in_i] 68 [in_i] [facility] ([facility]) 5'8" Body weight 185.00 [lb_av] 185.00 [lb_av] MEDEN T ([facility]) Body mass index (BMI) [Ratio] 28.1 kg/m2 28.1 k g/m2 [facility] ([facility]) ID Date Data Source [id number] 09/05/2020 02:19:15 PM [facility] Name Value Range Interpretation Code Description Data Source(s) WEIGHT RECORDED 174 lb 174 lb [facility] Body height Measured 68 in 68 in [facility] Patient Treatment Plan of Care Planned Activity Planned Date Details Description Data Source (s) Levothyroxine Sodium 0.112 MG Oral Tablet 09/18/2020 12:00:00 AM [facility] Metformin hydrochloride 1000 MG Oral Tablet 08/19/2020 12:00:00 AM [facility] Acyclovir 400 MG Oral Tablet 07/29/2020 12:00:00 AM [facility] Calcium Carbonate 1500 MG / Cholecalciferol 200 UNT Or al Tablet 07/06/2020 12:00:00 AM [facility] Cholecalciferol 1000 UNT Oral Capsule 06/18/2020 12:00:00 AM [place] [address] ([facility]) Cholecalciferol 1000 UNT Oral Capsule 06/18/2020 12:00:00 AM [place] [address] ([facility]) sitagliptin 100 MG Oral Tablet [Januvia] 05/07/2020 12:00:00 AM [facility] atorvastatin 10 MG Oral Tablet 05/07/2020 [facility] 03/04/2020 12:00:00 AM [facility] Delica Plus [id number] 03/03/2020 12:00:00 AM [facility] Meclizine Hydrochloride 12.5 MG Oral Tablet 01/28/2020 12:00:00 AM [place] [address] ([facility]) CALCIUM-VITAMIN D PO 11/26/2019 12:00:00 AM [facility] 24 HR Metformin hydrochloride 500 MG Extended Release Oral Tablet 08/13/2019 12:00:00 AM [facility] Levothyroxine Sodium 0.125 MG Oral Tablet 08/04/2019 12:00:00 AM [facility]
--- OUTSIDE RECORDS SUMMARY | 2021-01-13 10:41 | CCD ---
Author Author [facility] Organization [facility] Address Unknown Phone Unavailable Care Team Providers Care Legal Executive Assistant Name Role Phone Maritza Lugoe Unavailable PROBLEMS Type Condition ICD9-CM Code [id number] Code Onset Dates Condition S tatus W/U Status Risk SNOMED Code Notes Problem Type 2 diabetes mellitus wit h hyperglycemia, without long-term current use of insulin E11.65 Active confirmed 15982630 Problem Mixed hyperlipidemia E78.2 Active confirmed 019501268 Problem Acquired hypothyroidism E03.9 Active confirmed 924843677 Problem Microalbuminuria R80.9 Active confirmed 312 452794 Problem Vitamin D deficiency E55.9 Active confirmed 95434533 Problem Insomnia, unspecified type G47.00 Active confirmed 030252851 Problem Obesity (BMI 30-39.9) E66.9 Active confirmed 826635942 Problem Low bone density for age M85.80 Active confirmed 398013177 Problem Distal paresthesia R20.2 Active confirmed 7 6925121 Problem Vitamin B 12 deficiency E53.8 Active confirmed 465509957 Problem Gastroesophageal reflux disease, esophagitis pre sence not specified K21.9 Active confirmed 159407481 Problem Recurrent herpes simplex B00.9 Active confirmed 57446141 Problem Type 2 diabetes mellitus wit h diabetic neuropathy, without long-term current use of insulin E11.40 Active confirmed 2692016 6 ALLERGIES No Known Allergies ENCOUNTERS from 1966 to 2020-12-19 Encounter Location Date Provider Diagnosis [address] [phone] [place] [address] Dec, Arti Lugo Type 2 diabetes mellitus wit h diabetic [...] Education Language: Question Answer Notes Languages spoken: Austrian Confucianism: Question Answer Notes Confucianism 21 Hindu Domestic Violence: Question Answer Notes Status: Single [...] Treatment Notes Treatm ent Clinical Notes Dec, Type 2 diabetes mellitus wit h diabetic neuropathy, without long- term current use of insulin (ICD-10 - E11.40) PLAN OF TREATMENT Medication Medication Name Sig Start Date Stop Date metFORMIN HCl 1000 MG 1 tablet with a meal Orally twice daily fo r 90 day(s) Next Appt Details Provider Name:Bouchra Blount, 2021-01-26 01:30:00 PM, [address] [place] [address], , [place], [address], Provider Name:Mercy Crooks, 01:00:00 PM, [facility], , [place], [address], Insurance Providers Payer Name Payer Address Payer Phone Insured Name Patient Relati onship to Insured Coverage Start Date Coverage End Date [facility] [address] [address] [facility] [phone] ROGERIO WONG self
--- OUTSIDE RECORDS SUMMARY | 2021-01-13 10:41 | CCD ---
Author Author [facility] Organization [facility] Address Unknown Phone Unavailable Care Team Providers Care Central Office Frame Wirer Name Role Phone Arti Lugo Unavailable PROBLEMS Type Condition ICD9-CM Code [id number] Code Onset Dates Condition S tatus W/U Status Risk SNOMED Code Notes Problem Type 2 diabetes mellitus wit h hyperglycemia, without long-term current use of insulin E11.65 Active confirmed 10163808 Problem Mixed hyperlipidemia E78.2 Active confirmed 303254814 Problem Acquired hypothyroidism E03.9 Active confirmed 570755769 Problem Microalbuminuria R80.9 Active confirmed 312 450251 Problem Vitamin D deficiency E55.9 Active confirmed 91686578 Problem Insomnia, unspecified type G47.00 Active confirmed 405919126 Problem Obesity (BMI 30-39.9) E66.9 Active confirmed 233287109 Problem Low bone density for age M85.80 Active confirmed 533467248 Problem Distal paresthesia R20.2 Active confirmed 7 4250173 Problem Vitamin B 12 deficiency E53.8 Active confirmed 322523722 Problem Gastroesophageal reflux disease, esophagitis pre sence not specified K21.9 Active confirmed 536620408 Problem Recurrent herpes simplex B00.9 Active confirmed 64175950 Problem Type 2 diabetes mellitus wit h diabetic neuropathy, without long-term current use of insulin E11.40 Active confirmed 3856267 6 ALLERGIES No Known Allergies ENCOUNTERS from 1966 to 2020-11-05 Encounter Location Date Provider Diagnosis [address] [phone] [place] [address] Oct, Arti Lugo 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 5-10 years REASON FOR REFERRAL No Information VITAL SIGNS Weight 171 lbs Oct, Weight-kg 77.57 kg Oct, Height 68 in Oct, BMI 26.00 kg/m2 Oct, Heart Rate 107 /min Oct, Respiratory Rate 18 /min Oct, Temperature 96.2 degrees Fahrenheit Oct, Oximetry 99 Oct, Blood pressure systolic 130 mm Hg Oct, Blood pressure diastolic 80 mm Hg Oct, MEDICATIONS Medication SIG (Take, Route, Frequency, Duration) Notes Start Da te End Date Status Lancets - as directed DX: E11.65 Daily and as needed for 90 Active Vitamin B12 1000 MCG 1 tablet Orally Once a day Active Januvia 100 MG TAKE ONE TABLET BY MOUTH EVERY DAY for 30 Active metFORMIN HCl 1000 MG 1 tablet with a meal Orally twice daily for 9 0 day(s) Active Acyclovir 400 MG 1 tablet Orally twice daily for 90 day(s) Active Atorvastatin Calcium 10 MG TAKE ONE TABLET BY MOUTH EVERY DAY for 30 Active Glucometer as directed DX: E11.65 Daily for 99 months 2018 Active Blood Glucose Test - as directed In VitroDX: E11. 65 Daily fasting and prn for 90 days Active Calcium + D3 600-200 MG-UNIT 1 tablet with a meal Oral ly Once a day for 90 day(s) Active Levothyroxine Sodium 112 MCG 1 tablet in the morning o n an empty stomach Orally Once a day for 90 day(s) Active PROCEDURES from 1966 to 2020-11-05 Procedure Date Ordered Result Body Site Med: Derm 1% Lidocaine with Epinephrine Injection Intr adermally to marked areas 2020-10-30 N/A Medication: Triple Antibiotic packets (neomycin/bacitr acin/polymyxinb) ointment 2020-10-30 N/A RESULTS No Results REASON FOR VISIT 30 min for skin lesion removal MEDICAL (GENERAL) HISTORY Type Description Date Medical [...] Treatment Notes Treatm ent Clinical Notes Oct, 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 Procedure completed in office today and documented below PLAN OF TREATMENT Medication Medication Name Sig Start Date Stop Date Januvia 100 MG TAKE ONE TABLET BY MOUTH EVERY DAY for 30 Atorvastatin Calcium 10 MG TAKE ONE TABLET BY MOUTH EVERY DAY fo r 30 Treatment Notes Assessment Notes Clinical Notes Neoplasm of unspecified behavior of bone, soft tissue, and skin discussed treatment options - patient elects shave biopsy for removal and diagnosis. Procedure completed in office today and documented below Next Appt Details 2 Weeks Reason:f/up path and healing Provider Name:Arti Lugo, 2020-11-13 11:1 5:00 AM, [address] [place] [address] , [place], [address], Provider Name:Bouchra Blount, 2021-01-26 01:30:00 PM, [address] [place] [address], , [place], [address], Provider Name:Arti Lugo, 2021-03-25 11:3 0:00 AM, [address] [place] [address] , [place], [address], Follow Up:2 Weeksf/up path and healing Insurance Providers Payer Name Payer Address Payer Phone Insured Name Patient Relati onship to Insured Coverage Start Date Coverage End Date [facility] [address] [address] [facility] [phone] ROGERIO WONG self
--- OUTSIDE RECORDS SUMMARY | 2021-01-13 10:41 | CCD ---
Author Author [facility] Organization [facility] Address Unknown Phone Unavailable Care Team Providers Care Patient Access Director Name Role Phone Arti Lugo Unavailable PROBLEMS Type Condition ICD9-CM Code [id number] Code Onset Dates Condition S tatus W/U Status Risk SNOMED Code Notes Problem Type 2 diabetes mellitus wit h hyperglycemia, without long-term current use of insulin E11.65 Active confirmed 47934372 Problem Mixed hyperlipidemia E78.2 Active confirmed 522840121 Problem Acquired hypothyroidism E03.9 Active confirmed 053964217 Problem Microalbuminuria R80.9 Active confirmed 312 545632 Problem Vitamin D deficiency E55.9 Active confirmed 16497348 Problem Insomnia, unspecified type G47.00 Active confirmed 948447949 Problem Obesity (BMI 30-39.9) E66.9 Active confirmed 223717159 Problem Low bone density for age M85.80 Active confirmed 257573440 Problem Distal paresthesia R20.2 Active confirmed 7 8439946 Problem Vitamin B 12 deficiency E53.8 Active confirmed 164082217 Problem Gastroesophageal reflux disease, esophagitis pre sence not specified K21.9 Active confirmed 142921761 Problem Recurrent herpes simplex B00.9 Active confirmed 21187220 Problem Type 2 diabetes mellitus wit h diabetic neuropathy, without long-term current use of insulin E11.40 Active confirmed 9949525 6 ALLERGIES No Known Allergies ENCOUNTERS from 1966 to 2020-11-26 Encounter Location Date Provider Diagnosis [address] [phone] [place] [address] 10 Nov, 2020 Arti Lugo 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 5-10 years REASON FOR REFERRAL No Information VITAL SIGNS Weight 169 lbs Nov, Height 68 in Nov, BMI 25.69 kg/m2 Nov, Heart Rate 80 /min Nov, Respiratory Rate 20 /min Nov, Temperature 97.3 degrees Fahrenheit Nov, Oximetry 88 Nov, Blood pressure systolic 124 mm Hg Nov, Blood pressure diastolic 80 mm Hg Nov, MEDICATIONS Medication SIG (Take, Route, Frequency, Duration) Notes Start Da te End Date Status Lancets - as directed DX: E11.65 Daily and as needed for 90 Active Vitamin B12 1000 MCG 1 tablet Orally Once a day Active metFORMIN HCl 1000 MG 1 tablet with a meal Orally twice daily for 9 0 day(s) Active Calcium + D3 600-200 MG-UNIT 1 tablet with a meal Oral ly Once a day for 90 day(s) Active Atorvastatin Calcium 10 MG TAKE ONE TABLET BY MOUTH EVERY DAY for 30 Active Levothyroxine Sodium 112 MCG 1 tablet in the morning o n an empty stomach Orally Once a day for 90 day(s) Active Glucometer as directed DX: E11.65 Daily for 99 months A 2018 Active Blood Glucose Test - as directed In VitroDX: E11. 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 PLAN OF TREATMENT Treatment Notes Assessment Notes Clinical Notes Fibroepithelial polyp Benign, reassuranc e given, Patient was reminded to avoid unnecessary sun exposure, to wear protective clothing and sun screen when spending time in the sun and to check skin regularly for the development of any new lesions. Next Appt Details murphy - transfer care - any midlevel Reaso n:f/up labs, DM Provider Name:Bouchra Blount, 2021-01-26 01:30:00 PM, [address] [facility] [phone], [place], [address], Provider Name:Mercy Crooks, 01:00:00 PM, [facility] [phone], [place], [address], Follow Up:murphy - transfer care - any midlevelf/up labs, DM Insurance Providers Payer Name Payer Address Payer Phone Insured Name Patient Relati onship to Insured Coverage Start Date Coverage End Date [facility] [address] [address] [facility] [phone] ROGERIO WONG self
--- OUTSIDE RECORDS SUMMARY | 2021-01-13 13:06 | CCD ---
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 Name Role Phone Vu Dhaliwal MD Unavailable [...] Unavailable Vu Dhaliwal MD Unavailable Unavailable Sonido Trveiño MD Unavailable Unavailable Fish, B Luigi HART [...] Luigi HART Unavailable Unavailable Fish, Monica Sosa [facility], PA-C Unavailable Unavailabl e Fish, Monica Sosa [facility], PA-C Unavailable Unavailabl e Fish, Monica Sosa [facility], PA-C Unavailable Unavailabl e Fish, Monica Sosa [facility], PA-C Unavailable Unavailabl e Fish, [facility], PA-C Unavailable Unavailabl e Fish, [facility], PA-C Unavailable Unavailabl e Fish, [facility], PA-C Unavailable Unavailabl e Fish, [facility], PA-C Unavailable Unavailabl e Fish, [facility], PA-C Unavailable Unavailabl e Fish, [facility], PA-C Unavailable Unavailabl e Fish, [facility], PA-C Unavailable Unavailabl e Fish, [facility], PA-C Unavailable Unavailabl e Fish, [facility], PA-C Unavailable Unavailabl e Fish, [facility], PA-C Unavailable Unavailabl e Fish, [facility], PA-C Unavailable Unavailabl e Fish, [facility], PA-C Unavailable Unavailabl e Fish, [facility], PA-C Unavailable Unavailabl e Fish, [facility], PA-C Unavailable Unavailabl e Fish, [facility], PA-C Unavailable Unavailabl e Fish, [facility], PA-C Unavailable Unavailabl e Fish, [facility], PA-C Unavailable Unavailabl e Fish, [facility], PA-C Unavailable Unavailabl e Fish, [facility], PA-C Unavailable Unavailabl e Fish, [facility], PA-C Unavailable Unavailabl e Fish, [facility], PA-C Unavailable Unavailabl e Fish, [facility], PA-C Unavailable Unavailabl e Fish, [facility], PA-C Unavailable Unavailabl e Fish, [facility], PA-C Unavailable Unavailabl e Fish, [facility], PA-C Unavailable Unavailabl e Fish, [facility], PA-C Unavailable Unavailabl e Fish, [facility], PA-C Unavailable Unavailabl e Fish, [facility], PA-C Unavailable Unavailabl e Fish, [facility], PA-C Unavailable Unavailabl e Fish, [facility], PA-C Unavailable Unavailabl e Fish, [facility], PA-C Unavailable Unavailabl e [facility], [facility], [facility]-C Unavailable Unavailabl e Reddy, [...] Cassius HART Unavailable Unavailable Reddy, L Cassius HATR Unavailable Unavailable Reddy, L Cassius HART Unavailable Unavailable Reddy, L Cassius HART Unavailable Unavailable Reddy, L Cassius HART Unavailable Unavailable Reddy, L Cassius HART Unavailable Unavailable Reddy, L Cassius HART Unavailable Unavailable Reddy, L Cassius HART Unavailable Unavailable Reddy, L Cassius HART Unavailable Unavailable Rdedy, L Cassius HART Unavailable Unavailable Reddy, L [...] Unavailable Valentino, Letitia Sosa MD Unavailable Unavailable Letitia Avelar MD [...] is protected by Article 27-F of the [place] Public Health law. If you continue you may have access to information: Regarding HIV / AIDS; Provided by facilities licensed or operated by the [place] Office of Mental Health; or Provided by the [place] [facility] Office for People With Developmental Disabilities. If such information is present, then the following [place] [facility] mandated warning applies: This information has been [...] law may result in a fine or care home sentence or both. A general authorization for the release of medical or other information is NOT sufficient authorization for further disc losure. Allergies and Adverse Reactions Type Description Substance Reaction Status Data Source(s ) Propensity to adverse reactions NO KNOWN ALLERGIES NO KNOWN ALLERGIES [facility] Allergy to substance Allergy to substance Allergy to substance IESHA ([facility]) Allergy to substance Allergy to substance Allergy to substance [facility]HA ([facility]) Family History Family Member Name Family Member Gender Family Member Status Date o f Status Description Data Source(s) Unknown Female Diagnosis 09/08/2017 12:00:00 AM EDT [facility] ([facility]) Unknown Female Diagnosis 02/09/2016 12:00:00 AM EST [facility] ([facility]) Unknown Female Diagnosis 02/09/2016 12:00:00 AM EST [facility] ([facility]) Unknown Female Diagnosis 01/15/2014 12:00:00 AM EST [facility] ([facility]) Unknown Male Problem MED[facility] ([facility] () Encounters Encounter Providers Location Date Indications Data Source(s ) Unknown [address] [facility] [place] [address] 01/02/2021 12:00:00 AM EDT [facility]) [place] [address] [facility] [place] [address] 12/18/2020 12:00:00 AM EDT [facility]CW1 ([facility]) [place] [address] [facility] [place] [address] 11/21/2020 12:00:00 AM EDT [facility]) [place] [address] [facility] [place] [address] 10/30/2020 12:00:00 AM EDT [facility]CW1 ([facility]) [place] [address] [facility] [place] [address] 10/28/2020 12:00:00 AM EDT eCW1 ([facility]) Outpatient Referrer: KAYLEEN CIFUENTES MD 09/24/2020 01:4 2:25 PM EDT Displaced fracture of proximal phalanx of right ring finger, subsequent encounter for fracture with malunion [facility] Displaced fracture of proximal phalanx o f right ring finger, subsequent encounter for fracture with malunion Outpatient Attender: KAYLEEN CIFUENTES MD [id number] 09/24/2020 12:00:00 AM EDT [facility] Unknown [address] [facility] [address] 09/24/2020 12:00:00 AM EDT eCW1 ([facility]) Outpatient [address] [facility] [place] [address] 09/17/2020 12:00:00 AM EDT eCW1 ([facility]) Unknown [address] [facility] [place] [address] 08/18/2020 12:00:00 AM EDT eCW1 ([facility]) Outpatient Attender: KAYLEEN George: Luigi Womack [id number] 07/30/2020 12:00:00 AM EDT - 08/06/2020 03:24:27 PM [facility] Outpatient [address] [facility] [place] [address] 07/21/2020 12:00:00 AM EDT eCW1 ([facility]) Office Visit Attender: Sheila MANRIQUEZ PA-C Physical Therapy 07/15/2020 09:30:00 AM EDT MEDENT ([facility]) Office Visit Attender: SCAR LLOYD Physical Therapy 2020 05:00:00 PM EDT MED[facility] ([facility]) Office Visit Attender: Sheila MANRIQUEZ PA-C Physical Therapy 06/25/2020 08:45:00 AM EDT [facility] ([facility]) Unknown [address] [facility] [place] [address] 06/25/2020 12:00:00 AM EDT eCW1 ([facility]) Outpatient [address] [facility] [place] [address] 06/18/2020 12:00:00 AM EDT eCW1 ([facility]) Office Visit Attender: Sheila MANRIQUEZ PA-C Physical Therapy 06/03/2020 01:15:00 PM EDT [facility] ([facility]) Antonio Dhaliwal MD: [address] [place] [phone], Ph. Attender: Antonio Dhaliwal MD [facility] 06/03/2020 12:00:00 AM EDT IESHA ([facility]) Office Visit Attender: SCAR LLOYD Physical Therapy 2020 11:00:00 AM EDT MEDENT ([facility]) Outpatient Attender: Luigi Treviño MD Physical Therapy 05/26/2020 0 9:00:00 AM EDT [facility] ([facility]) Office Visit Attender: SCAR LLOYD Physical Therapy 2020 10:00:00 AM EST [facility] ([facility]) Antonio Dhaliwal MD: [address] [place] [phone], Ph. Attender: Antonio Dhaliwal MD [facility] 05/08/2020 12:00:00 AM EST I[facility]HA ([facility]) Antonio Dhaliwal MD: [address] [place] [phone], Ph. Attender: Antonio Dhaliwal MD [facility] 05/08/2020 12:00:00 AM EST I[facility]HA ([facility]) Office Visit Attender: SCAR LLOYD Physical Therapy 2020 09:30:00 AM EST MEDENT ([facility]) Office Visit Attender: SCAR LLOYD Physical Therapy 2020 10:00:00 AM EST [facility] ([facility]) OFFICE OUTPATIENT VISIT 15 MINUTES Attender: Cassius Reddy MD Phys ical Therapy 03/17/2020 08:15:00 AM EST [facility] ([facility]) Attender: Sheila Avelar MD [facility] 1 04/01/2019 10:27:00 AM EST - 01/31/2020 10:27:00 AM EST [facility] ([facility]) Outpatient [address] [facility] [address] 01/28/2020 12:00:00 AM EST eCW1 ([facility]) Office Visit Attender: SCAR LLOYD Physical Therapy 2019 10:30:00 AM EDT [facility] ([facility]) Office Visit Attender: SCAR LLOYD Physical Therapy 2019 10:00:00 AM EDT [facility] ([facility]) Outpatient [address] [facility] [place] [address] 12/20/2019 12:00:00 AM EDT [facility]) OFFICE OUTPATIENT NEW 30 MINUTES Attender: SCAR LLOYD Physic al Therapy 12/13/2019 03:30:00 PM EDT [facility] ([facility]) Outpatient [address] [facility] [place] [address] 12/13/2019 12:00:00 AM EDT [facility]CW1 [facility]) Immunizations Vaccine Date Status Description Data Source(s) COVID-19 dose #1 given elsewhere Unspecified 06/18/2020 11:3 0:00 AM EDT completed eCW1 ([facility]) COVID-19 dose #2 given elsewhere Unspecified 06/18/2020 11:3 0:00 AM EDT completed eCW1 ([facility]) COVID-19 dose #1 given elsewhere Unspecified 06/18/2020 11:3 0:00 AM EDT completed eCW1 ([facility]) COVID-19 dose #2 given elsewhere Unspecified 06/18/2020 11:3 0:00 AM EDT completed eCW1 ([facility]) COVID-19 dose #1 given elsewhere Unspecified 06/18/2020 11:3 0:00 AM EDT completed eCW1 ([facility]) COVID-19 dose #2 given elsewhere Unspecified 06/18/2020 11:3 0:00 AM EDT completed eCW1 ([facility]) COVID-19 dose #1 given elsewhere Unspecified 06/18/2020 11:3 0:00 AM EDT completed eCW1 ([facility]) COVID-19 dose #2 given elsewhere Unspecified 06/18/2020 11:3 0:00 AM EDT completed eCW1 ([facility]) COVID-19 dose #1 given elsewhere Unspecified 06/18/2020 11:3 0:00 AM EDT completed eCW1 ([facility]) COVID-19 dose #2 given elsewhere Unspecified 06/18/2020 11:3 0:00 AM EDT completed eCW1 ([facility]) COVID-19 dose #1 given elsewhere Unspecified 06/18/2020 11:3 0:00 AM EDT completed eCW1 ([facility]) COVID-19 dose #2 given elsewhere Unspecified 06/18/2020 11:3 0:00 AM EDT completed eCW1 ([facility]) COVID-19 dose #1 given elsewhere Unspecified 06/18/2020 11:3 0:00 AM EDT completed eCW1 ([facility]) COVID-19 dose #2 given elsewhere Unspecified 06/18/2020 11:3 0:00 AM EDT completed eCW1 ([facility]) COVID-19 dose #1 given elsewhere Unspecified 06/18/2020 11:3 0:00 AM EDT completed eCW1 ([facility]) COVID-19 dose #2 given elsewhere Unspecified 06/18/2020 11:3 0:00 AM EDT completed eCW1 ([facility]) COVID-19 dose #1 given elsewhere Unspecified 06/18/2020 11:3 0:00 AM EDT completed eCW1 ([facility]) COVID-19 dose #2 given elsewhere Unspecified 06/18/2020 11:3 0:00 AM EDT completed eCW1 ([facility]) COVID-19 dose #1 given elsewhere Unspecified 06/18/2020 11:3 0:00 AM EDT completed eCW1 ([facility]) COVID-19 dose #2 given elsewhere Unspecified 06/18/2020 11:3 0:00 AM EDT completed eCW1 ([facility]) COVID-19 dose #1 given elsewhere Unspecified 06/18/2020 11:3 0:00 AM EDT completed eCW1 ([facility]) COVID-19 dose #2 given elsewhere Unspecified 06/18/2020 11:3 0:00 AM EDT completed eCW1 ([facility]) COVID-19, mRNA, LNP-S, PF, 100 mcg/0.5 mL dose 06/03/2020 01 :43:52 PM EDT completed 10.5 mL IESHA ([facility]) COVID-19 VACCINE Moderna 06/03/2020 12:00:00 AM EDT completed [facility]IS Vaccine Series Complete: YESThis Data wa s Submitted to [facility] Via [employer]. COVID-19, mRNA, LNP-S, PF, 100 mcg/0.5 mL dose 05/08/2020 05 :41:16 PM EST completed .5 mL IESHA ([facility]) COVID-19, mRNA, LNP-S, PF, 100 mcg/0.5 mL dose 05/08/2020 05 :41:16 PM EST completed .5 mL IESHA ([facility]) Medications Medication Brand Name Start Date [...] MOUTH EVERY MORNING ON AN EMPTY STOMACH [facility] Acyclovir 400 MG Oral Tablet ACYCLOVIR 09/18/2020 [...] MOUTH TWICE A DAY WITH A MEAL [facility] 1,000 mg 08/19/2020 12:00:00 AM EDT tablet [...] Tablet (ZOVIRAX) 07/29/2020 12:00:00 AM EDT active [facility] Calcium Carbonate 1500 MG / Cholecalcife rol 200 UNT Oral Tablet Calcium-Vitamin D3 600-200 MG-UNIT Oral Tablet Calcium-Vitamin D3 600-200 MG-UNIT Oral Tablet 07/06/2020 12:00:00 AM EDT active TAKE ONE TABLET BY MOUTH EVERY DAY WITH A MEAL [facility] Metronidazole 500 MG Oral Tablet METRONIDAZOLE 06/24/2020 [...] active Vitamin D3 25 MCG (1000 UT) [facility] ([facility]) Cholecalciferol 1000 UNT Oral Capsule Vitamin D3 25 MC G (1000 UT) Vitamin D3 25 MCG (1000 UT) 06/18/2020 12:00:00 AM EDT 1.0 {capsule} active Vitamin D3 25 MCG (1000 UT) [facility] ([facility]) 112 mcg 06/05/2020 12:00:00 AM EDT tablet [...] pratik Take 100 mg by mouth daily [facility] atorvastatin 10 MG Oral Tablet Atorvastatin Calcium 10 MG Oral Tablet (LIPITOR) Atorvastatin Calcium 10 MG Oral Tablet (LIPITOR) 05/07/2020 12:00:00 AM EST 10 mg Oral active Take 10 mg by mouth [facility] 600 mg(1,500mg) -200 unit 04/08/2020 12:00:00 AM [...] [facility] CarolineTolisa Bonnerio In Vitro Strip [id number] 03/04/2020 12:00:00 AM EST active USE DIRECTED DAILY WITH FASTI NG NEEDED [facility] Carolinelisa Delica Plus [id number] 03/03/2020 12:00:00 AM EST active USE DIRECTED DAILY AND NEEDED [facility] atorvastatin 10 MG Oral Tablet ATORVASTATIN CALCIUM [...] susp ended Meclizine HCl 12.5 MG eCW1 ([facility]) Meclizine Hydrochloride 12.5 MG Oral Tablet Meclizine HCl 12.5 MG Meclizine HCl 12.5 MG 01/28/2020 12:00:00 AM EST 1.0 {tablet} acti ve Meclizine HCl 12.5 MG eCW1 ([facility]) Meclizine Hydrochloride 12.5 MG Oral Tablet Meclizine HCl 12.5 MG Meclizine HCl 12.5 MG 01/28/2020 12:00:00 AM EST 1.0 {tablet} susp ended Meclizine HCl 12.5 MG eCW1 ([facility]) 112 mcg 12/07/2019 12:00:00 AM EDT tablet [...] ONE TABLET BY MOUTH EVERY DAY WITH [facility] Acyclovir 400 MG Oral Tablet ACYCLOVIR 10/04/2019 [...] B Y MOUTH TWO TIMES A DAY [facility] Levothyroxine Sodium 0.125 MG Oral Table t Levothyroxine Sodium 125 MCG Oral Tablet (SYNTHROID) Levothyroxine Sodium 125 MCG Oral Tablet (SYNTHROID) 08/04/2019 12:00:00 AM EDT aborted TAKE ONE TABLET BY MOUTH EVERY MORNING ON AN EMPTY STOMACH [facility] 33 gauge 06/05/2019 12:00:00 AM EDT misc [...] type / Coverage type Policy ID Covered democrat ID Covered democrat's relationship to moreira Policy Moreira Plan Information [facility] [id number] MVP [id number] Olya [id number] MVP MMC [id number] self [id number] UMR U [id number] Self [id number] UMR U [id number] Self [id number] MVP [id number] [id number] SP [id number] [facility] [id number] SP [id number] MVP MCDHMO [id number] SP [id number] [employer] [facility] [facility] O [id number] S [id number] SELF PAY ONLY - [id number] SP [id number] ANSI-Medicaid [id number] ANSI-Medicaid [id number] ANSI-Medicaid [id number] ANSI-Medicaid [id number] ANSI-Medicaid [id number] ANSI-Medicaid [id number] ANSI-Medicaid [id number] ANSI-Medicaid [id number] ANSI-Medicaid [id number] ANSI-Medicaid [id number] [employer] [place] 020/520 [id number] SP [id number] [employer] B [id number] S W [id number] BS [place] [employer] [id number] Self W [id number] [facility] [id number] SP [id number] [employer] [place] [facility] [id number] SP [id number] [facility](MCAID) O [id number] S [id number] [facility] INS O [id number] S [id number] [facility] O [id number] S [id number] [facility] [id number] SP [id number] [facility] [id number] SP [id number] [facility] [id number] SP [id number] SELF PAY UNAVAILABLE SP UNAVAILA BLE [facility] [id number] SP [id number] 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 [id number] SP [id number] [employer] [id number] SP [id number] [facility] [id number] SP [id number] [facility] [id number] SP [id number] [place] [id number] SP [id number] MEDICAID [id number] SP [id number] R O [id number] S [id number] Problems, Conditions, and Diagnoses Code Display Name Description Problem Type Effective Dates Data Source(s) S62.614P Displaced fracture of proxim al phalanx of right ring finger, subsequent encounter for fracture with malunion Displaced fracture of proximal phalanx o f right ring finger, subsequent encounter for fracture with malunion Diagnosis 07/30/2020 03:38:51 PM EDT [facility] M85.80 [id number] Low bone density for age Problem 06/18/2020 12:00:00 AM EDT eCW1 ([facility]) G47.00 [id number] Insomnia, unspecified type Problem 0 12:00:00 AM EDT eCW1 ([facility]) [id number] Pure hypercholesterolemia Pure hypercholesterolemia Pr oblem 12/14/2019 12:00:00 AM EDT MEDENT ([facility]) Surgeries/Procedures Procedure Description Date Indications Data Source(s) Medication: Triple Antibiotic packets (neomycin/bacitr acin/polymyxinb) ointment 10/30/2020 12:00:00 AM EDT eC ([facility]) Med: Derm 1% Lidocaine with Epinephrine Injection Intr adermally to marked areas 10/30/2020 12:00:00 AM EDT eCW1 ([facility]) RADEX FINGR MINIMUM 2 VIEWS 07/15/2020 12:00:00 AM EDT [facility] ([facility] RADEX ANKLE COMPLETE MINIMUM 3 VIEWS 06/26/2020 12:00: 00 AM EDT [facility] ([facility] ) RADEX FINGR MINIMUM 2 VIEWS 06/25/2020 12:00:00 AM EDT [facility] ([facility] RADEX FINGR MINIMUM 2 VIEWS 06/03/2020 12:00:00 AM EDT MED[facility] ([facility] ) THERAPEUTIC PX 1/> AREAS EACH 15 MIN EXERCISES 12:00:00 AM EDT MEDENT ([facility] ) THERAPEUTIC PX 1/> AREAS EACH 15 MIN EXERCISES 021 12:00:00 AM EDT [facility] ([facility] ) RADEX FINGR MINIMUM 2 VIEWS 06/03/2020 12:00:00 AM EDT [facility] ([facility] ) RADEX ANKLE COMPLETE MINIMUM 3 VIEWS 05/29/2020 12:00: 00 AM EDT [facility] ([facility] ) THERAPEUTIC PX 1/> AREAS EACH 15 MIN EXERCISES 12:00:00 AM EDT [facility] ([facility] ) THERAPEUTIC PX 1/> AREAS EACH 15 MIN EXERCISES 12:00:00 AM EDT [facility] ([facility] ) CLTX PHLNGL FX PROX/MIDDLE PX/F/T W/O MANJ EA 05/27/19 12:00:00 AM EDT [facility] ([facility] ) THERAPEUTIC PX 1/> AREAS EACH 15 MIN EXERCISES 12:00:00 AM EST [facility] ([facility] ) THERAPEUTIC PX 1/> AREAS EACH 15 MIN EXERCISES 12:00:00 AM EST [facility] ([facility] ) THERAPEUTIC PX 1/> AREAS EACH 15 MIN EXERCISES 12:00:00 AM EST [facility] ([facility] ) RADEX ANKLE COMPLETE MINIMUM 3 VIEWS 05/14/2020 12:00: 00 AM EST [facility] ([facility] ) Physical Therapy Eval - Low Complexity 05/06/2020 12:0 0:00 AM EST [facility] ([facility] ) RADEX ANKLE COMPLETE MINIMUM 3 VIEWS 04/23/2020 12:00: 00 AM EST [facility] ([facility] ) RADEX ANKLE COMPLETE MINIMUM 3 VIEWS 04/09/2020 12:00: 00 AM EST [facility] ([facility] ) FX Lateral Malleolus (Distal Fibula) W/O Manipulation 03/17/2020 12:00:00 AM EST [facility] ([facility] RADEX ANKLE COMPLETE MINIMUM 3 VIEWS 03/17/2020 12:00: 00 AM EST [facility] ([facility] ) RADEX TOE MINIMUM 2 VIEWS 01/10/2020 12:00:00 AM EDT [facility] ([facility] ) RADEX TOE MINIMUM 2 VIEWS 12/26/2019 12:00:00 AM EDT [facility] ([facility] ) FX Phalanx Excl GR Toe W/O Manipulation 12/13/2019 12: 00:00 AM EDT [facility] ([facility] ) Results ID Date Data Source [id number] 09/24/2020 01:42:25 PM EDT [facility] XR FINGERS [id number] RESULTInterpreted by:Kayleen J Carlos, MDClinical history: Right [...] rce(s) Supporting Document(s) ID Date Data Source [id number] 09/24/2020 01:39:40 PM EDT [facility] Name Value Range Interpretation Code Description Data Trupti rce(s) Supporting Document(s) Progress Note [facility] [id number] lbm [file] [id number]== ID Date Data Source [id number] 07/30/2020 03:39:06 PM EDT [facility] Name Value Range Interpretation Code Description Data Trupti rce(s) Supporting Document(s) Progress Note [facility] [id number] lbm [file] ICAgICAgICAgICAgICAgICAgICAgICAgICAgICAgICAgICAgICAgICAgICAgICAgICAgICAgICAgICAg ICAgICAgICAgICAgICAgICAgICAgICAgICAgICANCiAgICAgICAgICAgICAgICAgICAgICAgICAgICAg ICAgICAgICAgICAgICAgICAgICAgICAgICAgICAgIC AgICAgICAgICAgICAgICAgICAgICAgICAgICAgICAgICAgICAgICANCiAgICAgICAgICAgICAgICAgIC AgICAgICAgICAgICAgICAgICAgICAgICAgICAgICAgICAgICAgICAgICAgICAgICAgICAgICAgICAgIC AgICAgICAgICAgICAgICAgICAgICANCiAgICAgICAg ICAgICAgICAgICAgICAgICAgICAgICAgICAgICAgICAgICAgICAgICAgICAgICAgICAgICAgICAgICAg ICAgICAgICAgICAgICAgICAgICAgICAgICAgICAgICANCiAgICAgICAgICAgICAgICAgICAgICAgICAg ICAgICAgICAgICAgICAgICAgICAgICAgICAgICAgIC AgICAgICAgICAgICAgICAgICAgICAgICAgICAgICAgICAgICAgICAgICANCiAgICAgICAgICAgICAgIC AgICAgICAgICAgICAgICAgICAgICAgICAgICAgICAgICAgICAgICAgICAgICAgICAgICAgICAgICAgIC AgICAgICAgICAgICAgICAgICAgICAgICANCiAgICAg ICAgICAgICAgICAgICAgICAgICAgICAgICAgICAgICAgICAgICAgICAgICAgICAgICAgICAgICAgICAg ICAgICAgICAgICAgICAgICAgICAgICAgICAgICAgICAgICANCiAgICAgICAgICAgICAgICAgICAgICAg ICAgICAgICAgICAgICAgICAgICAgICAgICAgICAgIC AgICAgICAgICAgICAgICAgICAgICAgICAgICAgICAgICAgICAgICAgICAgICANCiAgICAgICAgICAgIC AgICAgICAgICAgICAgICAgICAgICAgICAgICAgICAgICAgICAgICAgICAgICAgICAgICAgICAgICAgIC AgICAgICAgICAgICAgICAgICAgICAgICAgICANCiAg ICAgICAgICAgICAgICAgICAgICAgICAgICAgICAgICAgICAgICAgICAgICAgICAgICAgICAgICAgICAg ICAgICAgICAgICAgICAgICAgICAgICAgICAgICAgICAgICAgICANCjw/wWWoQ6mbkJWpjdH3N9fwUi3G Gc2YDO8vy9DlHHWnEFhbkaTzVjaFXkIoJVYoOusXHg e5NNniNO2EwZAxY1WqO1CdUAbcWH9AYIXhVISwaSLcHAScBUXlCkZ3EDCfXVlfOF7IjOLfVBumQFHmBI NsSV7XHVAtS489npXhNJ5XRc9THlJjLO6xep0ZErZsTANbTaePRxn9FJmxSH8QaHLcoEImQaCdKJCZNw YrD3cuj4RmAjVcZCJYGSjoDO0Zm4MbyBFfEGn+Pg0K RM6wg4WnCXfkCgZaTB4wxn0UXAwHLoCgI7ZczAkkWKWar6puRNKgUY9vfLBrGGY5XVArrVEbDZtbLZHe yCS4SIDLMZNgoTX6VgM4CvVbPsYdBQO8CzUrBR1oAKnlAO7SROT2ONjeXZUwCZNuK2mONxNfDJHhCRCx sYpbVT5MAtBjE0MukvFqbKFzQjBcLYJRKl8+DQplbm QxHmoWYkK8YUYpw0FuLOk9HP0UTASjPVxvMA5ORLIihW3bOMbsMF1GCtKqTSZjNVZLGkVfW65kmUOuOE g7M2PjUpAzVNUzDokwOEEnXRspNpBvBZWmXzEhSYpzQF8+ID4+COxoZS2GPJaetgEpLXZlLk2QVZBwEQ NkEX9oFQQcBVOtV1S0tUqtJWTQJuIkZ8ldvvqcGS1m NGQlW382uUrrxaMtTYXwFOHlPh8FODWvHKS1GSWqhLWzVsQhCNAWVLtlGP5TtJJmDYL2hA3wLPjjNVSz PNGwQ0oNLlXbfUmkSR89bFnymnQvsRNgKVl+Bm6TMP1da3LrDFd8toJsRJkiUQM6OPqkTZDmAHKpTZMs TIB1FLR4UIUFZxTnIYHfZGWwWMriZAZjMLPxwf5NQP VxUIXbDFLpAIIoTUBnETWbKSfnBCWkAJSjWjJmLKJuPWRyRM3FKrHhSVPgSPVwNGklMPGmPUMyia1UKL MfZJMuPcR8MHDnFZFbTLZlRBmcJGQvFSTsZfWjYDSjLXQjSY6GVxKpGXZxMTUfOULqBEIvBYGpng4NOI LrKISrMPHhBzBpOTAtMAChMMfbISCuWGM2Ggy3CYOx HLNtIT3GBpQxBPRwSLY5IAZyYNYeCMPgzp5DSNSoDNEuHAs3FpYuDYJlTPHrBHpmBPCdVSY0ABB2SZZq RWFjEN4IJlJdEILmDIhjSTrmHKSoQWPvlb1YJLLwHFPiYnqyMIUhNHTmDYSuKOslGPTvXRR8WLY8AAFh HEFvBD6LOoSxHQZqWEbqYLVcTUZfLAYosa6KBLWnML AwVBJtTKFdHSVcZGFtKQzhNJGvJSS4HqA0OFGpVTMsYE6YKmRlMFZkKJk4JvLcJSDoNXCbpi0EBSAyJE AtPZY0YfVqDLXkFAJzTUyuPJQjDIGwBIOlVRHaYHOcJH4BUhNbZJApEtB0RYYvHXLsJKAyir3GLUFsZY AyMTUyMSAwMDAwMCBuDQowMDAwMDIxNjcwIDAwMDAw DJ1HNpTbIBdoSXVGMtm3FUapJ0i5YRYsHM5FC0Bnj7GqQdEyGANGQNuvGL0hvdJvLUKlNo2SI6nCMihd CiouBDDpZQJiOQAgAoF1QSwhVsq0REMiJsJaItrgPV9wTIHwWYBoERS7BLPiW2ViSxO9XhWdMOD7VoQq M9A4QYNbQhFvXT5HZa2ARmV2PGL0lICpYf6VXfC9LPMXGmLeYA8GYYr= Procedure Social History Code Duration Value Status Description Data Source(s ) Smoking 11/21/2020 12:00:00 AM EDT Former Smoker completed Former Smoker eCW1 ([facility]) Smoking 11/21/2020 12:00:00 AM EDT Former Smoker completed Former Smoker eCW1 ([facility]) Smoking 11/21/2020 12:00:00 AM EDT Former Smoker completed Former Smoker eCW1 ([facility]) Smoking 10/30/2020 12:00:00 AM EDT Former Smoker completed Former Smoker eCW1 ([facility]) Alcohol intake 09/24/2020 12:00:00 AM EDT Current drinker of al cohol (finding) completed Current drinker of alcohol (finding) [facility] Tobacco use and exposure 09/24/2020 12:00:00 AM EDT Never used co mpleted Never used [facility] Smoking 09/24/2020 12:00:00 AM EDT Former smoker completed Former smoker [facility] Smoking 09/17/2020 12:00:00 AM EDT Former Smoker completed Former Smoker eCW1 ([facility]) Smoking 09/17/2020 12:00:00 AM EDT Former Smoker completed Former Smoker eCW1 ([facility]) Smoking 09/17/2020 12:00:00 AM EDT Former Smoker completed Former Smoker eCW1 ([facility]) Smoking 07/21/2020 12:00:00 AM EDT Former Smoker completed Former Smoker eCW1 ([facility]) Smoking 07/21/2020 12:00:00 AM EDT Former Smoker completed Former Smoker eCW1 ([facility]) Smoking 06/18/2020 12:00:00 AM EDT Former Smoker completed Former Smoker eCW1 ([facility]) Smoking 06/18/2020 12:00:00 AM EDT Former Smoker completed Former Smoker eCW1 ([facility]) Smoking 01/31/2020 12:00:00 AM EST Former smoker completed Former smoker [employer] ([facility]) Smoking 01/28/2020 12:00:00 AM EST Former Smoker completed Former Smoker eCW1 ([facility]) Smoking 12/20/2019 12:00:00 AM EDT Former Smoker completed Former Smoker eCW1 ([facility]) Vital Signs ID Date Data Source UNK Name Value Range Interpretation Code Description Data Source(s) Body weight 169 [lb_av] 169 [lb_av] eCW1 ([facility]) Body height 68 [in_i] 68 [in_i] eCW1 ([facility]) Body mass index (BMI) [Ratio] 25.69 kg/m2 25.69 kg/m2 W1 ([facility]) Heart rate 80 /min 80 /min eCW1 [facility] Respiratory rate 20 /min 20 /min eCW1 ([facility]) Body temperature 97.3 [degF] 97.3 [degF] eCW1 ( [facility]) Systolic blood pressure 124 mm[Hg] 124 mm[Hg] e CW1 ([facility]) Diastolic blood pressure 80 mm[Hg] 80 mm[Hg] eCW1 ([facility]) Body weight 171 [lb_av] 171 [lb_av] eCW1 ([facility]) Body weight 77.57 kg 77.57 kg eCW1 ([facility]) Body height 68 [in_i] 68 [in_i] eCW1 ([facility]) Body mass index (BMI) [Ratio] 26.00 kg/m2 26.00 kg/m2 eCW1 ([facility]) Heart rate 107 /min 107 /min eCW1 ([facility]) Respiratory rate 18 /min 18 /min eCW1 ([facility]) Body temperature 96.2 [degF] 96.2 [degF] eCW1 ( [facility]) Systolic blood pressure 130 mm[Hg] 130 mm[Hg] e CW1 ([facility]) Diastolic blood pressure 80 mm[Hg] 80 mm[Hg] eCW1 ([facility]) Body weight 173 [lb_av] 173 [lb_av] eCW1 ([facility]) Body height 68 [in_i] 68 [in_i] eCW1 ([facility]) Body mass index (BMI) [Ratio] 26.30 kg/m2 26.30 kg/m2 eCW1 ([facility]) Heart rate 99 /min 99 /min eCW1 ([facility]) Respiratory rate 18 /min 18 /min eCW1 ([facility]) Body temperature 97.1 [degF] 97.1 [degF] eCW1 ( [facility]) Systolic blood pressure 124 mm[Hg] 124 mm[Hg] e CW1 ([facility]) Diastolic blood pressure 80 mm[Hg] 80 mm[Hg] eCW1 ([facility]) Body weight 173.8 [lb_av] 173.8 [lb_av] eCW1 ([facility]) Body weight 78.83 kg 78.83 kg eCW1 ([facility]) Body height 68 [in_i] 68 [in_i] eCW1 ([facility]) Body mass index (BMI) [Ratio] 26.42 kg/m2 26.42 kg/m2 eCW1 ([facility]) Systolic blood pressure 126 mm[Hg] 126 mm[Hg] e CW1 ([facility]) Diastolic blood pressure 82 mm[Hg] 82 mm[Hg] eCW1 ([facility]) Body weight 177 [lb_av] 177 [lb_av] eCW1 ([facility]) Body height 68 [in_i] 68 [in_i] eCW1 ([facility]) Body mass index (BMI) [Ratio] 26.91 kg/m2 26.91 kg/m2 eCW1 ([facility]) Heart rate 84 /min 84 /min eCW1 ([facility]) Respiratory rate 20 /min 20 /min eCW1 ([facility]) Body temperature 98.3 [degF] 98.3 [degF] eCW1 ( [facility]) Systolic blood pressure 122 mm[Hg] 122 mm[Hg] e CW1 ([facility]) Diastolic blood pressure 74 mm[Hg] 74 mm[Hg] eCW1 ([facility]) Body height 66 [in_i] 66 [in_i] MEDENT ([facility] ) 5'6" Body weight 170.00 [lb_av] 170.00 [lb_av] MEDEN T ([facility] ) Body temperature 97.1 [degF] 97.1 [degF] MEDENT ([facility] ) Body mass index (BMI) [Ratio] 27.4 kg/m2 27.4 k g/m2 MEDENT ([facility] ) Body temperature 96.4 [degF] 96.4 [degF] MEDENT ([facility]) Body temperature 96.7 [degF] 96.7 [degF] MEDENT ([facility] ) Body height 66 [in_i] 66 [in_i] MEDENT ([facility] ) 5'6" Body weight 176.00 [lb_av] 176.00 [lb_av] MEDEN T ([facility] ) Body mass index (BMI) [Ratio] 28.4 kg/m2 28.4 k g/m2 MEDENT ([facility] ) Body weight 177 [lb_av] 177 [lb_av] eCW1 ([facility]) Body height 68 [in_i] 68 [in_i] eCW1 ([facility]) Body mass index (BMI) [Ratio] 26.91 kg/m2 26.91 kg/m2 eCW1 ([facility]) Heart rate 109 /min 109 /min eCW1 ([facility]) Respiratory rate 18 /min 18 /min eCW1 ([facility]) Body temperature 97 [degF] 97 [degF] eCW1 ([facility]) Systolic blood pressure 118 mm[Hg] 118 mm[Hg] e CW1 ([facility]) Diastolic blood pressure 82 mm[Hg] 82 mm[Hg] eCW1 ([facility]) Body temperature 97.1 [degF] 97.1 [degF] MEDENT ([facility] ) Body weight 181.6 [lb_av] 181.6 [lb_av] eCW1 ([facility]) Body height 68 [in_i] 68 [in_i] eCW1 ([facility]) Body mass index (BMI) [Ratio] 27.61 kg/m2 27.61 kg/m2 eCW1 ([facility]) Heart rate 98 /min 98 /min eCW1 ([facility]) Respiratory rate 17 /min 17 /min eCW1 ([facility]) Body temperature 97.9 [degF] 97.9 [degF] eCW1 ( [facility]) Systolic blood pressure 122 mm[Hg] 122 mm[Hg] e CW1 ([facility]) Diastolic blood pressure 72 mm[Hg] 72 mm[Hg] eCW1 ([facility]) Body temperature 96.6 [degF] 96.6 [degF] MEDENT ([facility]) Body height 68 [in_i] 68 [in_i] MEDENT ([facility]) 5'8" Body weight 185.00 [lb_av] 185.00 [lb_av] MEDEN T ([facility]) Body mass index (BMI) [Ratio] 28.1 kg/m2 28.1 k g/m2 MED[facility] ([facility]) ID Date Data Source [id number] 09/05/2020 02:19:15 PM [facility] Name Value Range Interpretation Code Description Data Source(s) WEIGHT RECORDED 174 lb 174 lb [facility] Body height Measured 68 in 68 in [facility] Patient Treatment Plan of Care Planned Activity Planned Date Details Description Data Source (s) Levothyroxine Sodium 0.112 MG Oral Tablet 09/18/2020 12:00:00 AM [facility] Metformin hydrochloride 1000 MG Oral Tablet 08/19/2020 12:00:00 AM [facility] Acyclovir 400 MG Oral Tablet 07/29/2020 12:00:00 AM [facility] Calcium Carbonate 1500 MG / Cholecalciferol 200 UNT Or al Tablet 07/06/2020 12:00:[address] [facility] Cholecalciferol 1000 UNT Oral Capsule 06/18/2020 12:00:00 AM [place] [id number] ([facility]) Cholecalciferol 1000 UNT Oral Capsule 06/18/2020 12:00:00 AM [place] [id number] ([facility]) sitagliptin 100 MG Oral Tablet [Januvia] 05/07/2020 12:00:[address] [facility] atorvastatin 10 MG Oral Tablet 05/07/2020 [facility] 03/04/2020 12:00:00 AM [facility] Delica Plus [id number] 03/03/2020 12:00:[address] [facility] Meclizine Hydrochloride 12.5 MG Oral Tablet 01/28/2020 12:00:00 AM [place] [id number] ([facility]) CALCIUM-VITAMIN D PO 11/26/2019 12:00:00 AM [facility] 24 HR Metformin hydrochloride 500 MG Extended Release Oral Tablet 08/13/2019 12:00:[address] [facility] Levothyroxine Sodium 0.125 MG Oral Tablet 08/04/2019 12:00:00 AM [facility]
[2021-01-13] MEDS ORDERED: ACETAMINOPHEN 325 MG TAB PO ONE (13:25)
--- NOTE | 2021-01-13 14:25 | REP ---
INDICATION: thoracic back pain, scoliosis. COMPARISON: None. 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 The pedicles are intact bilaterally. Vertebral body height is within normal limits. Mild anterior disc space narrowing and anterior lipping seen involving the mid and upper thoracic levels. There is no evidence of a definite fracture or destructive osseous lesion. IMPRESSION: Chronic changes as described above. <Electronically signed by Alfred Yang > 01/13/21 [id number]
[2021-01-13 15:06] VITALS: BP 137/84
== END 2021-01-13 15:07 | disposition home or self-care (01) ==
LOC: M ED 10:35
DX: S29.012A Strain of muscle and tendon of back wall of thorax, initial encounter (principal); X58.XXXA Exposure to other specified factors, initial encounter; Y92.9 Unspecified place or not applicable; Y93.9 Activity, unspecified; Y99.9 Unspecified external cause status; E11.9 Type 2 diabetes mellitus without complications; E03.9 Hypothyroidism, unspecified; Z79.84 Long term (current) use of oral hypoglycemic drugs; Z79.899 Other long term (current) drug therapy

== ENCOUNTER → 2021-03-03 | Outpatient (CLI) | payer OTHER ==
[2021-03-03 13:43] LABS: HEMOGLOBIN A1c 6.1 %
[2021-03-03 13:59] LABS: ALBUMIN 3.6 GM/DL (3.2-5.2); ALT/SGPT 17 U/L (12-78); BILIRUBIN,TOTAL 0.3 MG/DL (0.2-1.0); BLOOD UREA NITROGEN 13 MG/DL (7-18); CALCIUM LEVEL 9.1 MG/DL (8.5-10.1); CARBON DIOXIDE LEVEL 31 MEQ/L (21-32); CHLORIDE LEVEL 104 MEQ/L (98-107); CREATININE FOR GFR 0.68 MG/DL (0.55-1.30); FREE T4 1.07 NG/DL (0.76-1.46); GLOMERULAR FILTRATION RATE > 60.0 (>51); GLUCOSE, FASTING 92 MG/DL (70-100); POTASSIUM SERUM 4.6 MEQ/L (3.5-5.1); SODIUM LEVEL 140 MEQ/L (136-145); TOTAL 25(OH) VITAMIN D 34.8 NG/ML (30.0-100.0); TOTAL PROTEIN 6.6 GM/DL (6.4-8.2)
== END ==
LOC: M PLALAB 09:47
PROVIDERS: ATTEND Nurse Practitioner Family
DX: E11.40 Type 2 diabetes mellitus with diabetic neuropathy, unspecified (principal); E03.9 Hypothyroidism, unspecified; E55.9 Vitamin D deficiency, unspecified

== ENCOUNTER → 2021-06-25 | Outpatient (REF) | payer OTHER ==
[~2021-06-25] MED LIST changes: -LISI-898 PO; +LISI5TAB11 PO; +LOSA50TA28; -LOSA50TA88; +OMEP-173 PO; -OMEP-218 PO
== END ==
LOC: M SFHCPLAZ 13:38
PROVIDERS: ATTEND Physician Assistant
DX: R05.9 Cough, unspecified (principal)

== ENCOUNTER → 2021-09-15 | Outpatient (CLI) | payer OTHER ==
[2021-09-15 11:33] LABS: MALB URINE SIEMENS 13.9 MG/L; MAU/CREAT RATIO 8.5 MCG/MG (0.0-30.0)
[2021-09-15 11:51] LABS: ALBUMIN 3.6 GM/DL (3.2-5.2); ALT/SGPT 15 U/L (12-78); BILIRUBIN,TOTAL 0.5 MG/DL (0.2-1.0); BLOOD UREA NITROGEN 14 MG/DL (7-18); CALCIUM LEVEL 9.4 MG/DL (8.5-10.1); CARBON DIOXIDE LEVEL 30 MEQ/L (21-32); CHLORIDE LEVEL 107 MEQ/L (98-107); CREATININE FOR GFR 0.76 MG/DL (0.55-1.30); GLOMERULAR FILTRATION RATE > 60.0 (>51); GLUCOSE, FASTING 107 MG/DL (70-100); POTASSIUM SERUM 4.7 MEQ/L (3.5-5.1); SODIUM LEVEL 139 MEQ/L (136-145); TOTAL 25(OH) VITAMIN D 42.6 NG/ML (30.0-100.0); TOTAL PROTEIN 6.8 GM/DL (6.4-8.2)
[2021-09-15 12:04] LABS: HEMOGLOBIN A1c 6.1 %
== END ==
LOC: M PLALAB 08:09
PROVIDERS: ATTEND Nurse Practitioner Adult Health
DX: E55.9 Vitamin D deficiency, unspecified (principal); R80.9 Proteinuria, unspecified; E11.40 Type 2 diabetes mellitus with diabetic neuropathy, unspecified; E03.9 Hypothyroidism, unspecified

== ENCOUNTER → 2021-12-02 | Outpatient (CLI) | payer OTHER ==
[~2021-12-02] MED LIST changes: +LEVO1TAB40 PO; -LEVO750T13 PO
== END ==
LOC: M PLAIMG 14:57
PROVIDERS: ATTEND Physician Assistant
DX: M54.6 Pain in thoracic spine (principal); M41.85 Other forms of scoliosis, thoracolumbar region; M25.78 Osteophyte, vertebrae

== ENCOUNTER 2022-02-16 12:54 | Emergency (ER) | payer OTHER ==
[~2022-02-16] VITALS: Ht 172.7 cm; Wt 74.7 kg
[2022-02-16 16:24] LABS: BASO % 0.1 % (0.0-1.0); EOS # 0.1 10^3/uL (0.0-0.5); EOS % 1.3 % (0.0-3.0); HEMOGLOBIN 14.4 g/dl (12.0-15.5); LYMPH # 0.2 10^3/uL (1.5-5.0); LYMPH % 3.6 % (24.0-44.0); MEAN CORPUSCULAR VOLUME 84.4 fl (80.0-96.0); MONO # 0.2 10^3/uL (0.0-0.8); MONO % 3.6 % (2.0-8.0); NEUTROPHILS # 6.1 10^3/uL (1.5-8.5); NEUTROPHILS % 91.1 % (36.0-66.0); PLATELET COUNT, AUTOMATED 277 10^3/uL (150-450); RED BLOOD COUNT 5.33 10^6/uL (4.00-5.40); WHITE BLOOD COUNT 6.7 10^3/uL (4.0-10.0)
[2022-02-16 16:58] LABS: BILIRUBIN,DIRECT 0.1 MG/DL (<0.4); BILIRUBIN,TOTAL 0.5 MG/DL (0.3-1.2); TOTAL PROTEIN 7.2 G/DL (5.7-8.2)
[2022-02-16] MEDS ORDERED: NS 1,000 ML IV ONE (17:40)
[2022-02-16] MEDS ORDERED: ISOVUE-370 76% 100ML VIAL As Ordered ONE (17:56)
[2022-02-16 18:40] LABS: RSV AMPLIFICATION NEGATIVE (NEGATIVE)
[2022-02-16] MEDS ORDERED: ACETAMINOPHEN 500 MG TAB PO ONE (18:45)
[2022-02-16] MEDS ORDERED: ONDA4TAB6 PO (20:06)
[2022-02-16 20:09] VITALS: BP 130/70
== END 2022-02-16 20:28 | disposition home or self-care (01) ==
LOC: M ED 12:54
DX: K76.0 Fatty (change of) liver, not elsewhere classified (principal); K57.90 Diverticulosis of intestine, part unspecified, without perforation or abscess without bleeding; I88.0 Nonspecific mesenteric lymphadenitis; K44.9 Diaphragmatic hernia without obstruction or gangrene; E11.9 Type 2 diabetes mellitus without complications; E78.5 Hyperlipidemia, unspecified; I10 Essential (primary) hypertension; E03.9 Hypothyroidism, unspecified; F17.200 Nicotine dependence, unspecified, uncomplicated; F10.10 Alcohol abuse, uncomplicated; Z87.442 Personal history of urinary calculi; Z79.84 Long term (current) use of oral hypoglycemic drugs; Z79.02 Long term (current) use of antithrombotics/antiplatelets; Z79.899 Other long term (current) drug therapy

== ENCOUNTER → 2022-03-16 | Outpatient (CLI) | payer OTHER ==
[~2022-03-16] MED LIST changes: +ONDA4TAB6 PO
[2022-03-16 11:07] LABS: CREATININE, URINE 68.6 MG/DL
[2022-03-16 11:08] LABS: MAU/CREAT RATIO 7.2 MCG/MG (0.0-30.0)
[2022-03-16 11:10] LABS: ALBUMIN 3.5 G/DL (3.2-5.2); ALKALINE PHOSPHATASE 84 U/L (46-116); ALT/SGPT 10 U/L (7.0-40); AST/SGOT 15 U/L (<34); BILIRUBIN,TOTAL 0.3 MG/DL (0.3-1.2); BLOOD UREA NITROGEN 19 MG/DL (9-23); CALCIUM LEVEL 9.5 MG/DL (8.5-10.1); CARBON DIOXIDE LEVEL 29 MMOL/L (20-31); CHLORIDE LEVEL 105 MMOL/L (98-107); CHOLESTEROL LEVEL 164 MG/DL (<200); CHOLESTEROL RISK RATIO 2.46 (<5); CREATININE FOR GFR 0.65 MG/DL (0.55-1.30); GLOMERULAR FILTRATION RATE > 60.0 (>51); GLUCOSE, FASTING 123 MG/DL (60-100); HDL CHOLESTEROL 66.6 MG/DL (>40); LDL CHOLESTEROL 82.6 MG/DL (<100); NON-HDL-C 97 MG/DL; POTASSIUM SERUM 4.7 MMOL/L (3.5-5.1); SODIUM LEVEL 140 MMOL/L (136-145); THYROID STIMULATING HORMONE 8.525 uIU/ML (0.55-4.78); TOTAL 25(OH) VITAMIN D 33.8 NG/ML (20.0-100.0); TOTAL PROTEIN 6.8 G/DL (5.7-8.2); TRIGLYCERIDES LEVEL 74 MG/DL (<150); VITAMIN B12 LEVEL 595 PG/ML (211-911)
== END ==
LOC: M PLALAB 09:02
PROVIDERS: ATTEND Nurse Practitioner Adult Health
DX: R80.9 Proteinuria, unspecified (principal); E78.2 Mixed hyperlipidemia; E03.9 Hypothyroidism, unspecified; E53.8 Deficiency of other specified B group vitamins

== ENCOUNTER → 2022-03-30 | Outpatient (CLI) | payer OTHER ==
[2022-03-30 19:16] LABS: HEMOGLOBIN A1c 5.9 % (4.0-6.0)
== END ==
LOC: M PLALAB 14:00
PROVIDERS: ATTEND Nurse Practitioner Adult Health
DX: E11.40 Type 2 diabetes mellitus with diabetic neuropathy, unspecified (principal)

== ENCOUNTER → 2022-05-28 | Outpatient (CLI) | payer OTHER | LOC: M RAD 08:21 | PROVIDERS: ATTEND Nurse Practitioner Adult Health | DX: K76.0 Fatty (change of) liver, not elsewhere classified (principal) | CPT/HCPCS: 78803; A9560 ==

== ENCOUNTER → 2022-10-07 | Outpatient (CLI) | payer OTHER ==
[2022-10-07 11:30] LABS: ALBUMIN 3.7 G/DL (3.2-5.2); ALKALINE PHOSPHATASE 96 U/L (46-116); ALT/SGPT 11 U/L (7.0-40); AST/SGOT < 8 U/L (<34); BILIRUBIN,TOTAL 0.4 MG/DL (0.3-1.2); BLOOD UREA NITROGEN 19 MG/DL (9-23); CALCIUM LEVEL 9.4 MG/DL (8.5-10.1); CARBON DIOXIDE LEVEL 27 MMOL/L (20-31); CHLORIDE LEVEL 106 MMOL/L (98-107); CHOLESTEROL LEVEL 184 MG/DL (<200); CHOLESTEROL RISK RATIO 2.91 (<5); CREATININE FOR GFR 0.66 MG/DL (0.55-1.30); GLOMERULAR FILTRATION RATE > 60.0 (>51); GLUCOSE, FASTING 110 MG/DL (60-100); HDL CHOLESTEROL 63.1 MG/DL (>40); LDL CHOLESTEROL 103.5 MG/DL (<100); NON-HDL-C 120.9 MG/DL; POTASSIUM SERUM 4.6 MMOL/L (3.5-5.1); SODIUM LEVEL 140 MMOL/L (136-145); TOTAL PROTEIN 6.7 G/DL (5.7-8.2); TRIGLYCERIDES LEVEL 87 MG/DL (<150)
[2022-10-07 11:32] LABS: THYROID STIMULATING HORMONE 0.154 uIU/ML (0.55-4.78)
[2022-10-07 11:36] LABS: HEMOGLOBIN A1c 6.1 % (4.0-6.0)
== END ==
LOC: M PLALAB 07:55
PROVIDERS: ATTEND Nurse Practitioner Adult Health
DX: E11.40 Type 2 diabetes mellitus with diabetic neuropathy, unspecified (principal); E03.9 Hypothyroidism, unspecified

== ENCOUNTER 2022-11-09 19:02 | Emergency (ER) | payer OTHER ==
[~2022-11-09] VITALS: Ht 172.7 cm; Wt 74.2 kg
[2022-11-09 20:53] VITALS: BP 138/83; TEMP 97.6; O2SAT 96
== END 2022-11-09 20:54 | disposition home or self-care (01) ==
LOC: M ED 19:02
DX: T51.0X1A Toxic effect of ethanol, accidental (unintentional), initial encounter (principal); E11.9 Type 2 diabetes mellitus without complications; E78.5 Hyperlipidemia, unspecified; E03.9 Hypothyroidism, unspecified; F17.200 Nicotine dependence, unspecified, uncomplicated; Z79.84 Long term (current) use of oral hypoglycemic drugs; Z79.899 Other long term (current) drug therapy

== ENCOUNTER 2022-12-21 21:48 | Emergency (ER) | payer OTHER ==
[~2022-12-21] VITALS: Ht 172.7 cm; Wt 70.9 kg
[~2022-12-21 21:48] MED LIST changes: +CYCL-707 PO; +LIDO5DIS41 TD
[2022-12-22 03:27] VITALS: BP 130/78; TEMP 97.4; O2SAT 97
== END 2022-12-22 03:28 | disposition home or self-care (01) ==
LOC: M ED 21:48
DX: S60.042A Contusion of left ring finger without damage to nail, initial encounter (principal); W22.8XXA Striking against or struck by other objects, initial encounter; E11.9 Type 2 diabetes mellitus without complications; Y92.219 Unspecified school as the place of occurrence of the external cause; Y93.89 Activity, other specified; Y99.0 Civilian activity done for income or pay; Z79.02 Long term (current) use of antithrombotics/antiplatelets; Z79.4 Long term (current) use of insulin; Z79.899 Other long term (current) drug therapy

== ENCOUNTER → 2023-01-06 | Outpatient (CLI) | payer OTHER | LOC: M PLAIMG 14:39 | PROVIDERS: ATTEND Physician Assistant Medical | DX: M51.36 Other intervertebral disc degeneration, lumbar region (principal); M47.896 Other spondylosis, lumbar region; M41.86 Other forms of scoliosis, lumbar region ==

== ENCOUNTER 2023-03-01 19:40 | Emergency (ER) | payer OTHER ==
[~2023-03-01] VITALS: Ht 172.7 cm; Wt 75.0 kg
[2023-03-01 22:02] VITALS: BP 142/85; TEMP 97.7; O2SAT 100
[2023-03-01] MEDS ORDERED: KETOROLAC 60MG 2ML VIAL IM ONE (23:00)
[2023-03-01] MEDS ORDERED: METH-1165 PO (23:35)
[2023-03-01] MEDS ORDERED: PRED20TA PO (23:35)
== END 2023-03-01 23:53 | disposition home or self-care (01) ==
LOC: M ED 19:40
DX: M54.50 Low back pain, unspecified (principal); E11.9 Type 2 diabetes mellitus without complications; I10 Essential (primary) hypertension; E78.5 Hyperlipidemia, unspecified; E03.9 Hypothyroidism, unspecified; F17.200 Nicotine dependence, unspecified, uncomplicated; F10.10 Alcohol abuse, uncomplicated; Z87.442 Personal history of urinary calculi; Z79.02 Long term (current) use of antithrombotics/antiplatelets; Z79.52 Long term (current) use of systemic steroids; Z79.4 Long term (current) use of insulin; Z79.899 Other long term (current) drug therapy
CPT/HCPCS: 96372; 99283; J1885

== ENCOUNTER → 2023-03-18 | Outpatient (CLI) | payer OTHER ==
[~2023-03-18] MED LIST changes: +METH-1165 PO; +PRED20TA PO; +PROHANCE 279.3MG/ML 15ML VIAL ONE
== END ==
LOC: M PLAIMG 13:21
PROVIDERS: ATTEND Nurse Practitioner Adult Health
DX: M47.816 Spondylosis without myelopathy or radiculopathy, lumbar region (principal); M48.061 Spinal stenosis, lumbar region without neurogenic claudication; M41.9 Scoliosis, unspecified
CPT/HCPCS: 72158; A9576

== ENCOUNTER → 2023-04-27 | Outpatient (CLI) | payer OTHER ==
[~2023-04-27] MED LIST changes: -PROHANCE 279.3MG/ML 15ML VIAL ONE
[2023-04-27 14:10] LABS: CREATININE, URINE 70.4 MG/DL; MALB URINE SIEMENS < 3.0 MG/L; MAU/CREAT RATIO 4.2 MCG/MG (0.0-30.0)
[2023-04-27 14:11] LABS: ALBUMIN 3.6 G/DL (3.2-5.2); ALKALINE PHOSPHATASE 87 U/L (46-116); ALT/SGPT 14 U/L (7.0-40); AST/SGOT 13 U/L (<34); BILIRUBIN,TOTAL 0.3 MG/DL (0.3-1.2); BLOOD UREA NITROGEN 12 MG/DL (9-23); CARBON DIOXIDE LEVEL 30 MMOL/L (20-31); CHLORIDE LEVEL 108 MMOL/L (98-107); CHOLESTEROL LEVEL 194 MG/DL (<200); CREATININE FOR GFR 0.61 MG/DL (0.55-1.30); GLOMERULAR FILTRATION RATE > 60.0 (>51); GLUCOSE, FASTING 101 MG/DL (60-100); HDL CHOLESTEROL 66.7 MG/DL (>40); LDL CHOLESTEROL 101.7 MG/DL (<100); NON-HDL-C 127.3 MG/DL; POTASSIUM SERUM 4.8 MMOL/L (3.5-5.1); SODIUM LEVEL 141 MMOL/L (136-145); TOTAL PROTEIN 6.4 G/DL (5.7-8.2); TRIGLYCERIDES LEVEL 128 MG/DL (<150)
[2023-04-27 14:13] LABS: THYROID STIMULATING HORMONE 5.866 uIU/ML (0.55-4.78)
== END ==
LOC: M PLALAB 10:11
PROVIDERS: ATTEND Nurse Practitioner Adult Health
DX: E11.40 Type 2 diabetes mellitus with diabetic neuropathy, unspecified (principal); E03.9 Hypothyroidism, unspecified

== ENCOUNTER → 2023-06-22 | Outpatient (CLI) | payer OTHER | LOC: M WHC 09:30 | PROVIDERS: ATTEND Orthopaedic Surgery | DX: M47.896 Other spondylosis, lumbar region (principal) ==

== ENCOUNTER → 2023-11-07 | Outpatient (CLI) | payer OTHER ==
[~2023-11-07] MED LIST changes: +KETO10TAB PO; +METH-1164 PO; +ONDA-282 PO; -ONDA4TAB6 PO
[2023-11-07 13:30] LABS: CREATININE, URINE 112.6 MG/DL
[2023-11-07 13:31] LABS: MALB URINE SIEMENS < 3.0 MG/L; MAU/CREAT RATIO 2.6 MCG/MG (0.0-30.0)
[2023-11-07 13:32] LABS: ALBUMIN 3.8 G/DL (3.2-5.2); ALKALINE PHOSPHATASE 99 U/L (46-116); ALT/SGPT 11 U/L (7.0-40); AST/SGOT 9 U/L (<34); BILIRUBIN,TOTAL 0.4 MG/DL (0.3-1.2); BLOOD UREA NITROGEN 10 MG/DL (9-23); CALCIUM LEVEL 9.2 MG/DL (8.5-10.1); CARBON DIOXIDE LEVEL 28 MMOL/L (20-31); CHLORIDE LEVEL 111 MMOL/L (98-107); CHOLESTEROL LEVEL 195 MG/DL (<200); CHOLESTEROL RISK RATIO 3.31 (<5); CREATININE FOR GFR 0.68 MG/DL (0.55-1.30); GLOMERULAR FILTRATION RATE > 60.0 (>51); GLUCOSE, FASTING 93 MG/DL (60-100); HDL CHOLESTEROL 58.8 MG/DL (>40); HEMOGLOBIN A1c 5.8 % (4.0-6.0); LDL CHOLESTEROL 122.8 MG/DL (<100); NON-HDL-C 136.2 MG/DL; SODIUM LEVEL 140 MMOL/L (136-145); TOTAL PROTEIN 6.9 G/DL (5.7-8.2); TRIGLYCERIDES LEVEL 67 MG/DL (<150)
[2023-11-07 13:33] LABS: TOTAL 25(OH) VITAMIN D 33.1 NG/ML (20.0-100.0)
[2023-11-07 13:34] LABS: THYROID STIMULATING HORMONE 1.299 uIU/ML (0.55-4.78); VITAMIN B12 LEVEL 1811 PG/ML (211-911)
== END ==
LOC: M PLALAB 10:03
PROVIDERS: ATTEND Nurse Practitioner Adult Health
DX: E11.40 Type 2 diabetes mellitus with diabetic neuropathy, unspecified (principal); E03.9 Hypothyroidism, unspecified; E53.8 Deficiency of other specified B group vitamins; E55.9 Vitamin D deficiency, unspecified

== ENCOUNTER 2023-11-08 10:13 | Emergency (ER) | payer OTHER ==
[~2023-11-08] VITALS: Ht 172.7 cm; Wt 72.8 kg
[~2023-11-08 10:13] MED LIST changes: -KETO10TAB PO; -METH-1164 PO
[2023-11-08] MEDS: KETOROLAC 30 MG/ML 1ML VIAL IM ONE (11:35)
[2023-11-08] MEDS ORDERED: KETO10TAB PO (12:47)
[2023-11-08] MEDS ORDERED: METH-1164 PO (12:47)
[2023-11-08 13:03] VITALS: BP 135/85; TEMP 97.5; O2SAT 96
== END 2023-11-08 13:04 | disposition home or self-care (01) ==
LOC: M ED 10:13
DX: M54.50 Low back pain, unspecified (principal); R19.7 Diarrhea, unspecified; E11.9 Type 2 diabetes mellitus without complications; I10 Essential (primary) hypertension; K57.30 Diverticulosis of large intestine without perforation or abscess without bleeding; Z79.02 Long term (current) use of antithrombotics/antiplatelets; Z79.4 Long term (current) use of insulin; Z79.899 Other long term (current) drug therapy; Z87.442 Personal history of urinary calculi
CPT/HCPCS: 87507; 96372; 99283; J1885

== ENCOUNTER → 2024-05-15 | Outpatient (CLI) | payer OTHER ==
[~2024-05-15] MED LIST changes: +KETO10TAB PO; +METH-1164 PO
== END ==
LOC: M WHC 12:25
PROVIDERS: ATTEND Nurse Practitioner Adult Health
DX: Z12.31 Encounter for screening mammogram for malignant neoplasm of breast (principal)

== ENCOUNTER 2024-07-16 13:05 | Emergency (ER) | payer OTHER ==
[~2024-07-16] VITALS: Ht 172.7 cm; Wt 74.1 kg
[2024-07-16] MEDS: KETOROLAC 60MG 2ML VIAL IM ONE (16:48)
[2024-07-16] MEDS: ACETAMINOPHEN 325 MG TAB PO ONE (16:48)
[2024-07-16 17:29] VITALS: BP 164/94; TEMP 97.1; O2SAT 100
== END 2024-07-16 17:35 | disposition home or self-care (01) ==
LOC: M ED 13:05
DX: M54.31 Sciatica, right side (principal); E11.9 Type 2 diabetes mellitus without complications; I10 Essential (primary) hypertension; E03.9 Hypothyroidism, unspecified; F17.200 Nicotine dependence, unspecified, uncomplicated; F10.10 Alcohol abuse, uncomplicated; Z87.442 Personal history of urinary calculi; Z79.899 Other long term (current) drug therapy; Z79.02 Long term (current) use of antithrombotics/antiplatelets; Z79.4 Long term (current) use of insulin
CPT/HCPCS: 96372; 99283; J1885

== ENCOUNTER 2024-07-23 14:26 | Emergency (ER) | payer OTHER ==
[~2024-07-23] VITALS: Ht 172.7 cm; Wt 74.9 kg
[~2024-07-23 14:26] MED LIST changes: +ACYC-438 PO; -ACYC1TAB PO; +LIDO1ADH93 TD; -LIDO5DIS41 TD
[2024-07-23 15:07] LABS: BASO % 0.6 % (0.0-1.0); EOS # 0.3 10^3/uL (0.0-0.5); EOS % 4.1 % (0.0-3.0); HEMATOCRIT 43.4 % (36.0-47.0); HEMOGLOBIN 13.9 g/dl (12.0-15.5); LYMPH # 1.9 10^3/uL (1.5-5.0); LYMPH % 28.5 % (24.0-44.0); MEAN CORPUSCULAR HEMOGLOBIN 27.4 pg (27.0-33.0); MEAN CORPUSCULAR VOLUME 85.6 fl (80.0-96.0); MONO # 0.5 10^3/uL (0.0-0.8); MONO % 7.8 % (2.0-8.0); NEUTROPHILS % 58.7 % (36.0-66.0); PLATELET COUNT, AUTOMATED 289 10^3/uL (150-450); RED BLOOD COUNT 5.07 10^6/uL (4.00-5.40); WHITE BLOOD COUNT 6.8 10^3/uL (4.0-10.0)
[2024-07-23 15:39] LABS: LIPASE 37 U/L (12-53)
[2024-07-23 15:41] LABS: ALBUMIN 4.3 G/DL (3.2-5.2); ALKALINE PHOSPHATASE 94 U/L (35-104); ALT/SGPT 18 U/L (7.0-40); AST/SGOT 15 U/L (<34); BILIRUBIN,DIRECT < 0.1 MG/DL (<0.4); BILIRUBIN,TOTAL 0.3 MG/DL (0.3-1.2); BLOOD UREA NITROGEN 13 MG/DL (9-23); CALCIUM LEVEL 10.2 MG/DL (8.5-10.1); CARBON DIOXIDE LEVEL 26 MMOL/L (20-31); CHLORIDE LEVEL 105 MMOL/L (98-107); CK-MB VALUE MASS < 1.0 NG/ML (<3.6); CREATININE FOR GFR 0.65 MG/DL (0.55-1.30); GLOMERULAR FILTRATION RATE > 90.0 (>51); GLUCOSE, FASTING 78 MG/DL (60-100); POTASSIUM SERUM 4.1 MMOL/L (3.5-5.1); SODIUM LEVEL 141 MMOL/L (136-145); TOTAL PROTEIN 7.5 G/DL (5.7-8.2)
[2024-07-23 15:43] LABS: CPK CREATINE PHOSPHOKINASE 40 U/L (34-145)
[2024-07-23 17:19] LABS: CK-MB VALUE MASS < 1.0 NG/ML (<3.6)
[2024-07-23 17:27] LABS: CPK CREATINE PHOSPHOKINASE 41 U/L (34-145); MB/CK RELATIVE INDEX 2.43 (< OR =4)
[2024-07-23] MEDS ORDERED: ISOVUE-370 76% 100ML VIAL As Ordered ONE (17:29)
[2024-07-23 18:00] VITALS: TEMP 97.9
[2024-07-23 19:00] VITALS: BP 135/83; O2SAT 98
== END 2024-07-23 19:31 | disposition home or self-care (01) ==
LOC: M ED 14:26
DX: R07.9 Chest pain, unspecified (principal); E11.9 Type 2 diabetes mellitus without complications; I10 Essential (primary) hypertension; E78.5 Hyperlipidemia, unspecified; F17.200 Nicotine dependence, unspecified, uncomplicated; F10.10 Alcohol abuse, uncomplicated; Z79.02 Long term (current) use of antithrombotics/antiplatelets; Z79.4 Long term (current) use of insulin; Z79.899 Other long term (current) drug therapy
CPT/HCPCS: 36415; 71045; 71275; 80048; 80076; 82550; 82553; 83690; 83880; 84484; 85025; 93005; 93041; 93971; 94760; 99285; Q9967

== ENCOUNTER → 2024-09-26 | Outpatient (REF) | payer OTHER ==
[2024-09-26 17:40] LABS: PLATELET COUNT, AUTOMATED 270 10^3/uL (150-450)
[2024-09-26 17:59] LABS: ESTIMATED AVERAGE GLUCOSE 123.0 MG/DL (60-110)
[2024-09-26 18:13] LABS: FREE T4 1.22 NG/DL (0.89-1.76)
[2024-09-26 18:15] LABS: ALT/SGPT 15 U/L (7.0-40); AST/SGOT 18 U/L (<34); CALCIUM LEVEL 9.3 MG/DL (8.5-10.1); CARBON DIOXIDE LEVEL 26 MMOL/L (20-31); CHLORIDE LEVEL 104 MMOL/L (98-107); CHOLESTEROL LEVEL 173 MG/DL (<200); CHOLESTEROL RISK RATIO 2.61 (<5); CREATININE FOR GFR 0.70 MG/DL (0.55-1.30); GLOMERULAR FILTRATION RATE > 90.0 (>51); LDL CHOLESTEROL 83.4 MG/DL (<100); NON-HDL-C 106.8 MG/DL; POTASSIUM SERUM 4.6 MMOL/L (3.5-5.1); SODIUM LEVEL 143 MMOL/L (136-145); TOTAL 25(OH) VITAMIN D 52.0 NG/ML (20.0-100.0); TRIGLYCERIDES LEVEL 117 MG/DL (<150)
== END ==
LOC: M SFHCPLAZ 15:12
PROVIDERS: ATTEND Nurse Practitioner Adult Health
DX: Z00.00 Encounter for general adult medical examination without abnormal findings (principal); E11.40 Type 2 diabetes mellitus with diabetic neuropathy, unspecified; E55.9 Vitamin D deficiency, unspecified; E03.9 Hypothyroidism, unspecified

== ENCOUNTER → 2025-01-31 | Outpatient (CLI) | payer OTHER ==
[2025-01-31 18:48] LABS: FREE T4 1.63 NG/DL (0.89-1.76)
== END ==
LOC: M PLALAB 13:58
PROVIDERS: ATTEND Nurse Practitioner Adult Health
DX: E03.9 Hypothyroidism, unspecified (principal)

== ENCOUNTER → 2025-03-04 | Outpatient (REF) | payer OTHER | LOC: M SFHCPLAZ 16:50 | PROVIDERS: ATTEND Nurse Practitioner Family | DX: R09.89 Other specified symptoms and signs involving the circulatory and respiratory systems (principal) ==